=== PATIENT | male | born 1970 | race Caucasian/White ===

== ENCOUNTER 2019-07-03 19:39 | Inpatient (IN) ==
[2019-07-03] MEDS ORDERED: SODIUM CHLORIDE 0.9% 1000ML 1,000 ML IV ONE ×3 (20:05→21:33)
[2019-07-03] MEDS ORDERED: ONDANSETRON INJ 2 MG/ML 2 ML VIAL IV STA (20:05)
[2019-07-03] MEDS ORDERED: HYDROmorphone INJ 1 MG/ML SYRINGE IV PRN (20:05)
[2019-07-03 20:29] LABS: Basophils # (auto) 0.02 K/uL (0-0.2); Basophils % (auto) 0.4 %; Eosinophils # (auto) 0.02 K/uL (0-0.5); Eosinophils % (auto) 0.4 %; Hematocrit (blood only) 38.1 % (42-52); Hemoglobin 13.6 g/dL (14.0-18.0); Immature Granulocytes # (auto) 0.02 K/uL (0.00-0.02); Immature Granulocytes % (auto) 0.4 %; Lymphocytes % (auto) 16.3 %; Mean Corpuscular Hemoglobin 29.7 pg (25-34); Mean Corpuscular Hgb Conc 35.7 g/dL (32-36); Mean Corpuscular Volume 83.2 fL (80-100); Mean Platelet Volume 9.4 fL (7.4-10.4); Monocytes # (auto) 0.61 K/uL (0.11-0.59); Monocytes % (auto) 11.1 %; Neutrophils # (auto) 3.94 K/uL (1.4-6.5); Neutrophils % (auto) 71.4 %; Platelet Count 195 K/uL (130-400); RDW Coefficient of Variation 12.8 % (11.5-14.5); RDW Standard Deviation 38.5 fL (36.4-46.3); Red Blood Count 4.58 M/uL (4.7-6.1); White Blood Count 5.51 K/uL (4.8-10.8)
[2019-07-03 21:03] LABS: Alanine Aminotransferase 140 U/L (12-78); Albumin Globulin Ratio 1.2 (0.9-2); Albumin Level 3.7 gm/dl (3.4-5.0); Alkaline Phosphatase 69 U/L (45-117); Aspartate Aminotransferase 49 U/L (15-37); BUN Creatinine Ratio 13.3 (10-20); Bilirubin,Total 1.3 mg/dl (0.2-1); Blood Urea Nitrogen 18 mg/dl (7-18); Calcium 13.2 mg/dl (8.5-10.1); Carbon Dioxide 26 mmol/L (21-32); Chloride 104 mmol/L (98-107); Creatine Kinase 45 U/L (39-308); Creatine Kinase MB < 1.0 ng/ml (0.5-3.6); Creatinine Clr Calc Pharmacy 65.2 ml/min; Est GFR (African American) 70.6; Est GFR (Non-African American) 60.9; Globulin 3.1 gm/dl (2.5-4.0); Glucose 108 mg/dl (70-99); Lipase 69 U/L (73-393); Potassium 3.7 mmol/L (3.5-5.1); Sodium 139 mmol/L (136-145); Total Protein 6.8 gm/dl (6.4-8.2); Troponin I < 0.015 ng/ml (0-0.045)
[2019-07-03 21:15] LABS: Lyme Ab IgG w/WB Rflx Negative (Negative); Lyme Ab IgM w/WB Rflx Negative (Negative)
[2019-07-03] MEDS ORDERED: OPTIRAY 320 125ml IV PRN (21:25)
--- NOTE | 2019-07-03 21:35 | CT Scan Report ---
CT angio chest PE protocol CT DOSE: HISTORY: Chest pain Chest Pain, eval for PE TECHNIQUE: Multiaxial CT images of the chest were performed following the intravenous administration of contrast to evaluate the pulmonary arteries. Maximal intensity projection images were also obtaine d. A dose lowering technique was utilized adhering to the principles of ALARA. COMPARISON STUDY: None. FINDINGS: There is a normal caliber thoracic aorta with no evidence for dissection. There is no evide nce for pulmonary embolus. No pleural effusions. No pneumothorax. The liver and spleen are unremarkab le. No mediastinal or hilar lymphadenopathy. The central airways are patent. The lungs are clear. Mil d bibasilar dependent atelectasis. IMPRESSION: No evidence for pulmonary embolus. The lungs are clear. The above report was generated using voice recognition software. It may contain grammatical, syntax or spelling errors. Electronically signed by: Jerson Cadena M.D. 07/03/2019 9:34 PM
--- NOTE | 2019-07-03 21:42 | CT Scan Report ---
CT abd pelvis IV con only CT DOSE: 779.26 mGy.cm HISTORY: Pain Pt c/o epigastric pain TECHNIQUE: Multiaxial CT images of the abdomen and pelvis were performed following the use of intrave nous contrast. A dose lowering technique was utilized adhering to the principles of ALARA. COMPARISON STUDY: None. FINDINGS: The lung bases demonstrate mild dependent atelectasis. The liver, spleen, gallbladder, panc reas, kidneys, and adrenal glands are within normal limits. No bowel wall thickening or obstruction. The pelvic organs are unremarkable. No suspicious lytic or blastic osseous lesions. IMPRESSION: No significant abnormality identified within the abdomen or pelvis. Mild dependent atelectasis of the chest versus minimal bibasilar infiltrates. The above report was generated using voice recognition software. It may contain grammatical, syntax or spelling errors. Electronically signed by: Jerson Cadena M.D. 07/03/2019 9:40 PM
[2019-07-03 22:18] LABS: Appearance Urine Cloudy (Clear); Bacteria Urine Automated Negative (Negative); Bilirubin Urine Negative (Negative); Blood Urine Negative (Negative); Color Urine Yellow; Glucose Urine UA Negative (Negative); Ketones Urine Negative (Negative); Leukocyte Esterase Urine Negative (Negative); Nitrite Urine Negative (Negative); Protein Urine Trace (Negative); RBC Urine Automated 0-4 /hpf (0-4); Specific Gravity Urine 1.027 (1.000-1.030); Urobilinogen Urine Negative (Negative)
[2019-07-03 22:28] LABS: Magnesium 1.8 mg/dl (1.8-2.4); Thyroid Stimulating Hormone 0.397 uIu/ml (0.300-4.500)
--- NOTE | 2019-07-03 22:47 | History & Physical Report ---
Date of Service July 03, 2019 Assessment & Plan (1) Hypercalcemia: Symptomatic hypercalcemia manifesting as musculoskeletal complaints of 2 months duration. Etiology to be determined ? Secondary to left renal lesion on CT done at [facility] 07/02/19 Diarrhea rule out C. difficile Medical telemetry NSS Calcitonin subcu if serum calcium greater than 12 after initial fluid boluses given at the ER Hypercalcemia work-up Nephrology consult RE hypercalcemia Urology consult RE recommendations for additional work-up/dedicated imaging for incidental finding of left renal lesion found on recent CT done at [facility]. Stool C. difficile DVT prophylaxis. Lovenox subcu Full code History of Present Illness Chief Complaint: Chest pain/abdominal pain Primary Care Provider: KARLA Khan History obtained from patient, family, and records. No significant medical history. 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 X-ray showed a symmetric disc narrowing at T11-T12 level. Fair amount calcification throughout the costochondral cartilages especially on sternum. [place] [facility]. Symptoms attributed to costochondritis for which analgesics were recommended. Rheumatology consult recommended for possible seronegative arthritis. Persistent pain later accompanied by pleuritic chest pain and achy abdominal pain with constipation symptoms over the next 2 months resulting in multiple [facility] ER visits. Serum calcium levels noted to be elevated on multiple occasions this month. (10.2-12.8) Patient denies inordinate milk/antacid intake. Patient seen at [facility] ER yesterday for headache, jaw pain, chest pain and flank pain. No hematuria. Serum potassium noted to be 12.8. CT chest no pulmonary embolism CT abdomen pelvis read: T11 compression fracture. Question small exophytic le amando upper medial aspect of left upper pole kidney. Further evaluation to exclude tiny malignancy recommended. Nonobstructing right intrarenal calcification. Patient told to follow-up with PCP. Patient brought to the ER by family for worsening symptoms. Nonbloody diarrhea symptoms noted today. Medical History as above Surgical History : Finger amputation, tonsillectomy Family History : Mu's granulomatosis Personal/Social history : Non-smoker, no EtOH intake, coreas Allergies Allergy/AdvReac Type Severity Reaction Status Date / Time Penicillins Allergy Severe Swelling Verified 11/24/19 20:33 of Lip/Tongue/Throat Home Medications Home Medications Medication Instructions Recorded Confirmed Type acetaminophen [Tylenol Extra 500 mg PO Q4 PRN 07/03/19 07/03/19 History Strength] diclofenac sodium [Voltaren] 4 g TOPICAL QID 07/03/19 07/03/19 History ibuprofen [Advil] 400 mg PO Q4 PRN 07/03/19 07/03/19 History meclizine 25 mg PO TID PRN 07/03/19 07/03/19 History ondansetron 4 mg PO Q8H PRN 07/03/19 07/03/19 History oxycodone-acetaminophen [Percocet] 1 tab PO Q6 PRN 07/03/19 07/03/19 History Past Med/Surg History Medical History (Updated 07/04/19 @ 10:16 by KARLA Kirby) No known health problems Social History Preferred Language: [place] Communication Ability: Effective Licensed Psychologist Director Required: No Beliefs That Will Affect Care: None Current Living Situation: Spouse Feels Safe at Home: Yes Safety Concerns: Feels Safe At This Time Smoking Status: Never smoker Hx Alcohol Use: No Hx Substance Use: No Review of Systems Review of Systems: As per HPI, all 10 systems reviewed, all other ROS negative Physical Exam Physical Exam: GENERAL: uncomfortable, no respiratory distress SKIN: Normal color, warm HEENT: [place] palpebral conjunctivae, no ptosis, dry buccal mucosa NECK : Supple, no tenderness CHEST : CTA, anterior chest wall tenderness HEART : RRR, no obvious murmurs ABDOMEN: Some distention, central abdominal tenderness EXTREMITIES : No LE swelling/tenderness, amputation stump left thumb NEUROLOGIC : Coherent, no facial asymmetry, no other gross focality Results & Data Vital Signs (Past 12 Hours) Vital Signs Temp Pulse Pulse Resp BP BP Pulse Ox 07/03/19 21:43 89 139/82 96 07/03/19 19:42 36.3 C L 106 H 20 136/69 98 Laboratory Results Laboratory Results WBC 5.51 K/uL (4.8-10.8) 07/03/19 20:16 RBC 4.58 M/uL (4.7-6.1) L 07/03/19 20:16 Hgb 13.6 g/dL (14.0-18.0) L 07/03/19 20:16 Hct 38.1 % (42-52) L 07/03/19 20:16 MCV 83.2 fL (80-100) 07/03/19 20:16 MCH 29.7 pg (25-34) 07/03/19 20:16 MCHC 35.7 g/dL (32-36) 07/03/19 20:16 RDW Std Deviation 38.5 fL (36.4-46.3) 07/03/19 20:16 RDW Coeff of Silvestre 12.8 % (11.5-14.5) 07/03/19 20:16 Plt Count 195 K/uL (130-400) 07/03/19 20:16 MPV 9.4 fL (7.4-10.4) 07/03/19 20:16 Immature Gran % (Auto) 0.4 % 07/03/19 20:16 Neut % (Auto) 71.4 % 07/03/19 20:16 Lymph % (Auto) 16.3 % 07/03/19 20:16 [place] % (Auto) 11.1 % 07/03/19 20:16 Eos % (Auto) 0.4 % 07/03/19 20:16 Baso % (Auto) 0.4 % 07/03/19 20:16 Immature Gran # (Auto) 0.02 K/uL (0.00-0.02) 07/03/19 20:16 Neut # (Auto) 3.94 K/uL (1.4-6.5) 07/03/19 20:16 Lymph # (Auto) 0.90 K/uL (1.2-3.4) L 07/03/19 20:16 [place] # (Auto) 0.61 K/uL (0.11-0.59) H 07/03/19 20:16 Eos # (Auto) 0.02 K/uL (0-0.5) 07/03/19 20:16 Baso # (Auto) 0.02 K/uL (0-0.2) 07/03/19 20:16 Sodium 139 mmol/L (136-145) 07/03/19 20:16 Potassium 3.7 mmol/L (3.5-5.1) 07/03/19 20:16 Chloride 104 mmol/L (98-107) 07/03/19 20:16 Carbon Dioxide 26 mmol/L (21-32) 07/03/19 20:16 Anion Gap 9.0 (3-11) 07/03/19 20:16 BUN 18 mg/dl (7-18) 07/03/19 20:16 Creatinine 1.34 mg/dl (0.6-1.4) 07/03/19 20:16 Est Cr Clr Drug Dosing 65.2 ml/min 07/03/19 20:16 Est GFR ( Amer) 70.6 07/03/19 20:16 Est GFR (Non-Af Amer) 60.9 07/03/19 20:16 BUN/Creatinine Ratio 13.3 (10-20) 07/03/19 20:16 Glucose 108 mg/dl (70-99) H 07/03/19 20:16 Calcium 13.2 mg/dl (8.5-10.1) H* 07/03/19 20:16 Phosphorus 4.0 mg/dl (2.5-4.9) 07/03/19 20:16 Magnesium 1.8 mg/dl (1.8-2.4) 07/03/19 20:16 Total Bilirubin 1.3 mg/dl (0.2-1) H 07/03/19 20:16 AST 49 U/L (15-37) H 07/03/19 20:16 ALT 140 U/L (12-78) H 07/03/19 20:16 Alkaline Phosphatase 69 U/L (45-117) 07/03/19 20:16 Total Creatine Kinase 45 U/L (39-308) 07/03/19 20:16 CK-MB (CK-2) < 1.0 ng/ml (0.5-3.6) 07/03/19 20:16 CK/CKMB % Calc TNP 07/03/19 20:16 Troponin I < 0.015 ng/ml (0-0.045) 07/03/19 20:16 Total Protein 6.8 gm/dl (6.4-8.2) 07/03/19 20:16 Albumin 3.7 gm/dl (3.4-5.0) 07/03/19 20:16 Globulin 3.1 gm/dl (2.5-4.0) 07/03/19 20:16 Albumin/Globulin Ratio 1.2 (0.9-2) 07/03/19 20:16 Lipase 69 U/L (73-393) L 07/03/19 20:16 TSH 0.397 uIu/ml (0.300-4.500) 07/03/19 20:16 PTH Intact 7.1 pg/ml (18.4-80.1) L 07/03/19 21:47 Urine Color Yellow 07/03/19 22:03 Urine Appearance Cloudy (Clear) A 07/03/19 22:03 Urine pH 6.0 (4.5-7.5) 07/03/19 22:03 Ur Specific [place] 1.027 (1.000-1.030) 07/03/19 22:03 Urine Protein Trace (Negative) H 07/03/19 22:03 Urine Glucose (UA) Negative (Negative) 07/03/19 22:03 Urine Ketones Negative (Negative) 07/03/19 22:03 Urine Blood Negative (Negative) 07/03/19 22:03 Urine Nitrite Negative (Negative) 07/03/19 22:03 Urine Bilirubin Negative (Negative) 07/03/19 22:03 Urine Urobilinogen Negative (Negative) 07/03/19 22:03 Ur Leukocyte Esterase Negative (Negative) 07/03/19 22:03 Urine WBC (Auto) 1-5 /hpf (0-5) 07/03/19 22:03 Urine RBC (Auto) 0-4 /hpf (0-4) 07/03/19 22:03 U Hyaline Cast (Auto) 1-5 /lpf (0-5) 07/03/19 22:03 U Epithel Cells (Auto) 10-20 /lpf (0-5) H 07/03/19 22:03 Urine Bacteria (Auto) Negative (Negative) 07/03/19 22:03 Lyme Disease IgG Ab Negative (Negative) 07/03/19 20:16 Lyme Disease IgM Ab Negative (Negative) 07/03/19 20:[address] head initial read: No acute intracranial pathology CT chest: No evidence for pulmonary embolus. The lungs are clear. CT abdomen pelvis: No significant abnormality identified within the abdomen or pelvis. Mild dependent atelectasis of the chest versus minimal bibasilar infiltrates. EKG as per my interpretation: Rate 85, NSR, normal axis, T wave flattening inferior leads
[2019-07-03] MEDS ORDERED: KETOROLAC TROMETHAMINE 15 MG/ML VIAL IV ONE (22:48)
[2019-07-04] MEDS ORDERED: OXYCODONE/ACETAMINOPHEN 5mg/325mg TAB PO PRN (00:17)
[2019-07-04] MEDS ORDERED: PROMETHAZINE HCL 12.5 MG in SODIUM CHLORIDE 0.9% 50 ML IV PRN (00:17)
[2019-07-04] MEDS ORDERED: ACETAMINOPHEN 325 MG TAB PO PRN (00:17)
[2019-07-04] MEDS ORDERED: LORazepam 0.25 MG/0.5 ML VIAL IV PRN (00:17)
--- NOTE | 2019-07-04 00:28 | Emergency Department Note ---
Entered by Latha Myers acting as a scribe for Antonio Madera MD History of Present Illness General Chief complaint: Flank Pain Stated complaint: CHEST, KIDNEY PAIN, NAUSEA, DRY HEAVES Time Seen by Provider: 07/03/19 19:55 Source: patient, family, RN notes reviewed and old records reviewed Mode of arrival: ambulatory Limitations: no limitations History of Present Illness Provider complaint: diffuse body pain Onset (ago): month(s) 1 Location: chest Radiation: abdomen Severity: severe and similar to prior episodes Pain Consistency: + colicky Maximum Pain Intensity: 6 Current Pain Intensity: 6 Quality: + burning Relieved By: + medication (morphine) Exacerbated By: + movement Associated symptoms: + denies other symptoms Treatments prior to arrival: none This is a 49-year-old male who presents emergency department complaining of severe and diffuse body pains. The patient reports he is a patient of [facility] and reports that he is having severe body pains have been ongoing for a month. He is supposed to follow-up with rheumatology because they are concerned that his calcium level is very high. He describes the body pains as abdominal in the flank radiating to the back. 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 He arrives with outside CAT scans. His parents are also present. He denies any fevers. Home Medications Home Medications Medication Instructions Recorded Confirmed Type acetaminophen [Tylenol Extra 500 mg PO Q4 PRN 07/03/19 07/03/19 History Strength] diclofenac sodium [Voltaren] 4 g TOPICAL QID 07/03/19 07/03/19 History ibuprofen [Advil] 400 mg PO Q4 PRN 07/03/19 07/03/19 History meclizine 25 mg PO TID PRN 07/03/19 07/03/19 History ondansetron 4 mg PO Q8H PRN 07/03/19 07/03/19 History oxycodone-acetaminophen [Percocet] 1 tab PO Q6 PRN 07/03/19 07/03/19 History Allergies Allergy/AdvReac Type Severity Reaction Status Date / Time Penicillins Allergy Severe Swelling Verified 07/03/19 20:33 of Lip/Tongue/Throat Past Med/Surg History Medical History No known health problems Social History Preferred Language: Arabic Communication Ability: Effective Underwear Cutter Required: No Beliefs That Will Affect Care: None Current Living Situation: Spouse Feels Safe at Home: Yes Safety Concerns: Feels Safe At This Time Smoking Status: Never smoker Hx Alcohol Use: No Hx Substance Use: No Review of Systems See HPI for pertinent positives & negatives. and A total of 10 systems reviewed and were otherwise negative Physical Exam Vital Signs Vital Signs - 24 hr 07/03/19 19:42 07/03/19 21:43 Temperature 36.3 C L Temperature Source Oral Pulse Rate 106 H Pulse Rate [Bilateral] 89 Pulse Rhythm [Bilateral] Regular Pulse Strength [Bilateral] Normal Respiratory Rate 20 Respiratory Effort / Characteristics Non-Labored Respiratory Depth Normal Blood Pressure 136/69 Blood Pressure [Left Arm] 139/82 Blood Pressure Mean 91 Blood Pressure Mean [Left Arm] 101 Blood Pressure Position [Left Arm] Lying Pulse Oximetry 98 96 Oxygen Delivery Method Room Air Room Air Sepsis Recent Fever Within 48 Hours No Sepsis New/Unexplained Change in Mental Status No Sepsis Action Taken by Nursing No Action Required GENERAL: Awake, alert, well-appearing, in no acute distress HENT: Normocephalic, atraumatic. Oropharynx unremarkable. EYES: Normal conjunctiva. Sclera non-icteric. NECK: Supple. No nuchal rigidity. FROM. No JVD. RESPIRATORY: Clear to auscultation. CARDIAC: Regular rate, normal rhythm. Extremities warm and well perfused. Pulses equal. ABDOMEN: Soft, non-distended. No tenderness to palpation. No rebound or guarding. No masses. RECTAL: Deferred. MUSCULOSKELETAL: Chest examination reveals no tenderness. The back is symmetrical on inspection without obvious abnormality. There is no CVA tenderness to palpation. No joint edema. LOWER EXTREMITIES: Calves are equal size bilaterally and non-tender. No edema. No discoloration. NEURO: Normal sensorium. No sensory or motor deficits noted. SKIN: No rash or jaundice noted. Course Course 1953: The patient was evaluated in room B02. A complete history and physical exam was performed. Administered Medications Calcitonin [place] (Calcimar) 320 units SQ BID ROBERTO Stop: 08/03/19 00:59 Last Admin: 07/04/19 21:01 Dose: 320 units Documented by: [id number] Admin: 07/04/19 07:57 Dose: 320 units Documented by: [id number] Admin: 07/04/19 01:03 Dose: 320 units Documented by: [id number] Enoxaparin Sodium (Lovenox) 30 mg SQ QAM ROBERTO Stop: 08/03/19 08:59 Last Admin: 07/04/19 07:56 Dose: 30 mg Documented by: [id number] Potassium Chloride/Sodium Chloride (Normal Saline W/20 Meq Kcl) 20 meq in 1,000 mls @ 200 mls/hr IV .Q5H ROBERTO Stop: 08/03/19 00:44 Last Admin: 07/04/19 21:31 Dose: 200 mls/hr Documented by: [id number] Infusion: 07/04/19 21:31 Dose: 200 mls/hr Documented by: [id number] Admin: 07/04/19 16:50 Dose: 200 mls/hr Documented by: [id number] Infusion: 07/04/19 16:50 Dose: 0 mls/hr Documented by: [id number] Infusion: 07/04/19 12:40 Dose: 200 mls/hr Documented by: [id number] Infusion: 07/04/19 12:02 Dose: 0 mls/hr Documented by: [id number] Admin: 07/04/19 11:07 Dose: 200 mls/hr Documented by: [id number] Infusion: 07/04/19 11:07 Dose: 200 mls/hr Documented by: [id number] Admin: 07/04/19 06:13 Dose: 200 mls/hr Documented by: [id number] Infusion: 07/04/19 06:03 Dose: 200 mls/hr Documented by: [id number] Admin: 07/04/19 01:03 Dose: 200 mls/hr Documented by: [id number] Promethazine HCl 12.5 mg/ (Sodium Chloride) 50.5 mls @ 202 mls/hr IV Q6H PRN PRN Reason: Nausea And Vomiting Stop: 08/03/19 00:16 Last Infusion: 07/04/19 01:50 Dose: 0 mls/hr Documented by: [id number] Admin: 07/04/19 01:32 Dose: 202 mls/hr Documented by: [id number] Lidocaine (Lidoderm 5%) 1 patch TD HS ROBERTO Stop: 08/03/19 01:14 Last Admin: 07/04/19 21:01 Dose: 1 patch Documented by: [id number] Admin: 07/04/19 01:32 Dose: 1 patch Documented by: [id number] Miscellaneous (Remove Lidoderm Patch) 1 ea N/A QAM ROBERTO Stop: 08/03/19 10:59 Last Admin: 07/04/19 11:08 Dose: 1 ea Documented by: [id number] Morphine Sulfate (Morphine Sulfate) 4 mg IV Q4H PRN PRN Reason: Pain Stop: 07/18/19 00:16 Last Admin: 07/04/19 21:30 Dose: 4 mg Documented by: [id number] Admin: 07/04/19 15:14 Dose: 4 mg Documented by: [id number] Admin: 07/04/19 08:16 Dose: 4 mg Documented by: [id number] Admin: 07/04/19 02:43 Dose: 4 mg Documented by: [id number] Ondansetron HCl (Zofran) 4 mg IV Q6H PRN PRN Reason: Nausea Stop: 08/03/19 08:03 Last Admin: 07/04/19 21:30 Dose: 4 mg Documented by: [id number] Admin: 07/04/19 15:14 Dose: 4 mg Documented by: [id number] Admin: 07/04/19 08:16 Dose: 4 mg Documented by: [id number] Discontinued Medications Hydromorphone HCl (Dilaudid) 1 mg IV Q15M PRN PRN Reason: Pain Stop: 07/17/19 20:04 Last Admin: 07/03/19 20:34 Dose: 1 mg Documented by: [id number] Sodium Chloride (Nss 1000ml) 1,000 mls @ 999 mls/hr IV .Q1H1M ONE Stop: 07/03/19 21:05 Last Infusion: 07/03/19 21:28 Dose: 0 mls/hr Documented by: [id number] Admin: 07/03/19 20:34 Dose: 999 mls/hr Documented by: [id number] Sodium Chloride (Nss 1000ml) 1,000 mls @ 999 mls/hr IV .Q1H1M ONE Stop: 07/03/19 22:04 Last Infusion: 07/03/19 22:44 Dose: 0 mls/hr Documented by: [id number] Admin: 07/03/19 21:41 Dose: 999 mls/hr Documented by: [id number] Sodium Chloride (Nss 1000ml) 1,000 mls @ 999 mls/hr IV .Q1H1M ONE Stop: 07/03/19 22:33 Last Infusion: 07/03/19 22:44 Dose: 0 mls/hr Documented by: [id number] Admin: 07/03/19 21:42 Dose: 999 mls/hr Documented by: [id number] Zoledronic Acid 4 mg/ Sodium (Chloride) 105 mls @ 210 mls/hr IV 1200 ONE Stop: 07/04/19 12:29 Last Infusion: 07/04/19 12:40 Dose: 0 mls/hr Documented by: [id number] Admin: 07/04/19 12:02 Dose: 210 mls/hr Documented by: [id number] Ioversol (Optiray 320 125ml) 118 ml IV ONCE PRN PRN Reason: Interaction Checking Stop: 07/07/19 21:24 Last Admin: 07/03/19 21:26 Dose: 118 ml Documented by: [id number] Ketorolac Tromethamine (Toradol) 15 mg IV NOW ONE Stop: 07/03/19 22:49 Last Admin: 07/03/19 23:30 Dose: 15 mg Documented by: [id number] Ondansetron HCl (Zofran) 4 mg IV NOW STA Stop: 07/03/19 20:06 Last Admin: 07/03/19 20:34 Dose: 4 mg Documented by: [id number] Medical Decision Making Differential Diagnosis My differential diagnosis includes but is not limited to pulmonary embolus, VT, hypercalcemia, hyper magnesium, parathyroid issues Medical Records Attestation: I reviewed the patient's medical records. Home Medications Current Medication List: was personally reviewed by me Laboratory Data Result diagrams: 07/04/19 06:47 07/04/19 06:47 Lab Results 07/03/19 07/03/19 07/03/19 Range/Units 20:16 20:16 20:16 WBC 5.51 (4.8-10.8) K/uL RBC 4.58 L (4.7-6.1) M/uL Hgb 13.6 L (14.0-18.0) g/dL Hct 38.1 L (42-52) % MCV 83.2 (80-100) fL MCH 29.7 (25-34) pg MCHC 35.7 (32-36) g/dL RDW Std Deviation 38.5 (36.4-46.3) fL RDW Coeff of Silvestre 12.8 (11.5-14.5) % Plt Count 195 (130-400) K/uL MPV 9.4 (7.4-10.4) fL Immature Gran % (Auto) 0.4 % Neut % (Auto) 71.4 % Lymph % (Auto) 16.3 % [place] % (Auto) 11.1 % Eos % (Auto) 0.4 % Baso % (Auto) 0.4 % Immature Gran # (Auto) 0.02 (0.00-0.02) K/uL Neut # (Auto) 3.94 (1.4-6.5) K/uL Lymph # (Auto) 0.90 L (1.2-3.4) K/uL [place] # (Auto) 0.61 H (0.11-0.59) K/uL Eos # (Auto) 0.02 (0-0.5) K/uL Baso # (Auto) 0.02 (0-0.2) K/uL Sodium 139 (136-145) mmol/L Potassium 3.7 (3.5-5.1) mmol/L Chloride 104 (98-107) mmol/L Carbon Dioxide 26 (21-32) mmol/L Anion Gap 9.0 (3-11) BUN 18 (7-18) mg/dl Creatinine 1.34 (0.6-1.4) mg/dl Est Cr Clr Drug Dosing 65.2 ml/min Est GFR ( Amer) 70.6 Est GFR (Non-Af Amer) 60.9 BUN/Creatinine Ratio 13.3 (10-20) Glucose 108 H (70-99) mg/dl Calcium 13.2 H* (8.5-10.1) mg/dl Phosphorus 4.0 (2.5-4.9) mg/dl Magnesium 1.8 (1.8-2.4) mg/dl Total Bilirubin 1.3 H (0.2-1) mg/dl AST 49 H (15-37) U/L ALT 140 H (12-78) U/L Alkaline Phosphatase 69 (45-117) U/L Total Creatine Kinase 45 (39-308) U/L CK-MB (CK-2) < 1.0 (0.5-3.6) ng/ml CK/CKMB % Calc TNP Troponin I < 0.015 (0-0.045) ng/ml Total Protein 6.8 (6.4-8.2) gm/dl Albumin 3.7 (3.4-5.0) gm/dl Globulin 3.1 (2.5-4.0) gm/dl Albumin/Globulin Ratio 1.2 (0.9-2) Lipase 69 L (73-393) U/L TSH 0.397 (0.300-4.500) uIu/ml PTH Intact (18.4-80.1) pg/ml Urine Color Urine Appearance (Clear) Urine pH (4.5-7.5) Ur Specific [place] (1.000-1.030) Urine Protein (Negative) Urine Glucose (UA) (Negative) Urine Ketones (Negative) Urine Blood (Negative) Urine Nitrite (Negative) Urine Bilirubin (Negative) Urine Urobilinogen (Negative) Ur Leukocyte Esterase (Negative) Urine WBC (Auto) (0-5) /hpf Urine RBC (Auto) (0-4) /hpf U Hyaline Cast (Auto) (0-5) /lpf U Epithel Cells (Auto) (0-5) /lpf Urine Bacteria (Auto) (Negative) Lyme Disease IgG Ab Negative (Negative) Lyme Disease IgM Ab Negative (Negative) 07/03/19 07/03/19 Range/Units 21:47 22:03 WBC (4.8-10.8) K/uL RBC (4.7-6.1) M/uL Hgb (14.0-18.0) g/dL Hct (42-52) % MCV (80-100) fL MCH (25-34) pg MCHC (32-36) g/dL RDW Std Deviation (36.4-46.3) fL RDW Coeff of Silvestre (11.5-14.5) % Plt Count (130-400) K/uL MPV (7.4-10.4) fL Immature Gran % (Auto) % Neut % (Auto) % Lymph % (Auto) % [place] % (Auto) % Eos % (Auto) % Baso % (Auto) % Immature Gran # (Auto) (0.00-0.02) K/uL Neut # (Auto) (1.4-6.5) K/uL Lymph # (Auto) (1.2-3.4) K/uL [place] # (Auto) (0.11-0.59) K/uL Eos # (Auto) (0-0.5) K/uL Baso # (Auto) (0-0.2) K/uL Sodium (136-145) mmol/L Potassium (3.5-5.1) mmol/L Chloride (98-107) mmol/L Carbon Dioxide (21-32) mmol/L Anion Gap (3-11) BUN (7-18) mg/dl Creatinine (0.6-1.4) mg/dl Est Cr Clr Drug Dosing ml/min Est GFR ( Amer) Est GFR (Non-Af Amer) BUN/Creatinine Ratio (10-20) Glucose (70-99) mg/dl Calcium (8.5-10.1) mg/dl Phosphorus (2.5-4.9) mg/dl Magnesium (1.8-2.4) mg/dl Total Bilirubin (0.2-1) mg/dl AST (15-37) U/L ALT (12-78) U/L Alkaline Phosphatase (45-117) U/L Total Creatine Kinase (39-308) U/L CK-MB (CK-2) (0.5-3.6) ng/ml CK/CKMB % Calc Troponin I (0-0.045) ng/ml Total Protein (6.4-8.2) gm/dl Albumin (3.4-5.0) gm/dl Globulin (2.5-4.0) gm/dl Albumin/Globulin Ratio (0.9-2) Lipase (73-393) U/L TSH (0.300-4.500) uIu/ml PTH Intact 7.1 L (18.4-80.1) pg/ml Urine Color Yellow Urine Appearance Cloudy A (Clear) Urine pH 6.0 (4.5-7.5) Ur Specific [place] 1.027 (1.000-1.030) Urine Protein Trace H (Negative) Urine Glucose (UA) Negative (Negative) Urine Ketones Negative (Negative) Urine Blood Negative (Negative) Urine Nitrite Negative (Negative) Urine Bilirubin Negative (Negative) Urine Urobilinogen Negative (Negative) Ur Leukocyte Esterase Negative (Negative) Urine WBC (Auto) 1-5 (0-5) /hpf Urine RBC (Auto) 0-4 (0-4) /hpf U Hyaline Cast (Auto) 1-5 (0-5) /lpf U Epithel Cells (Auto) 10-20 H (0-5) /lpf Urine Bacteria (Auto) Negative (Negative) Lyme Disease IgG Ab (Negative) Lyme Disease IgM Ab (Negative) Imaging Data Radiologist's Impression: [facility], [place] [phone] CT Scan Report Patient: SILVIA CAMILO JRAdmit Date: 07/03/19 MR#: [id number]: [address] Acct ID:[id number]: Date: 1970[facility] Zip: [place] [address] Age: 49Location: ED Sex: M Room/Bed: Att Phy:Diagnosis: CHEST, KIDNEY PAIN, NAUSEA, DRY HEAVES Michelle Phy: PCP,NOService Date: 07/03/19 Fam Phy:Interpreting Phy: Jerson Cadena MD Admit Phy: Ordering Phy: Antonio Madera MD cc: ~ CT abd pelvis IV con only CT DOSE: 779.26 mGy.cm HISTORY: Pain Pt c/o epigastric pain TECHNIQUE: Multiaxial CT images of the abdomen and pelvis were performed follo wing the use of intravenous contrast. A dose lowering technique was utilized adhering to the principles of ALARA. COMPARISON STUDY: None. FINDINGS: The lung bases demonstrate mild dependent atelectasis. The liver, spleen, gallbladder, pancreas, kidneys, and adrenal glands are within normal limits. No bowel wall thickening or obstruction. The pelvic organs are unremarkable. No suspicious lytic or blastic osseous lesions. IMPRESSION: No significant abnormality identified within the abdomen or pelvis. Mild dependent atelectasis of the chest versus minimal bibasilar infiltrates. The above report was generated using voice recognition software. It may contain grammatical, syntax or spelling errors. Electronically signed by: Jerson Cadena M.D. 07/03/2019 9:40 PM Dictated: 07/03/192134 Transcribed: 07/03/192134 [facility], [place] [phone] CT Scan Report Patient: SILVIA CAMILO JRAdmit Date: 07/03/19 MR#: [id number]: [address] Acct ID:[id number]: Date: 1970[facility] Zip: [place] [address] Age: 49Location: ED Sex: M Room/Bed: Att Phy:Diagnosis: CHEST, KIDNEY PAIN, NAUSEA, DRY HEAVES Michelle Phy: PCP,NOService Date: 07/03/19 Fam Phy:Interpreting Phy: Jerson Cadena MD Admit Phy: Ordering Phy: Antonio Madera MD cc: ~ CT angio chest PE protocol CT DOSE: HISTORY: Chest pain Chest Pain, eval for PE TECHNIQUE: Multiaxial CT images of the chest were performed following the intravenous administration of contrast to evaluate the pulmonary arteries. Maximal intensity projection images were also obtained. A dose lowering technique was utilized adhering to the principles of ALARA. COMPARISON STUDY: None. FINDINGS: There is a normal caliber thoracic aorta with no evidence for dissection. There is no evidence for pulmonary embolus. No pleural effusions. No pneumothorax. The liver and spleen are unremarkable. No mediastinal or hilar lymphadenopathy. The central airways are patent. The lungs are clear. Mild bibasilar dependent atelectasis. IMPRESSION: No evidence for pulmonary embolus. The lungs are clear. [facility], [place] [phone] CT Scan Report Patient: SILVIA CAMILO JRAdmit Date: 07/03/19 MR#: [id number]: [address] Acct ID:[id number]: Date: 1970[facility] Zip: [place] [address] Age: 49Location: 2N Sex: M Room/Bed: N288-1 Att Phy: Dao Vargas, MDDiagnosis: CP, HYPERCALCEMIA Michelle Phy: PCP,NOService Date: 07/03/19 Fam Phy:Interpreting Phy: Ronaldo Delgado MD Admit Phy: Manny Mcpherson MD Ordering Phy: Manny Mcpherson MD cc: ~ CT head/brain wo con CLINICAL HISTORY: 49 years-old Male presenting with headache, left-sided head and posterior head pain. TECHNIQUE: Multidetector CT imaging of the head was performed without the use of intravenous contrast. IV contrast: None. One or more dose lowering techniques were used consistent with the principles of ALARA (as low as reasonably achievable), including automatic exposure control, mA or kV adjustment to individual patient size, and/or use of iterative reconstruction. COMPARISON: None. CT DOSE (mGy.cm): The estimated cumulative dose is 614.27 mGy.cm. 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 Ventricles and sulci normal in size. No hemorrhage. Brain parenchyma normal in appearance with preserved delaney-white differentiation. No acute territorial infarct. No mass effect or midline shift. No extra-axial fluid collection. Paranasal sinuses and mastoid air cells clear. Calvarium intact. IMPRESSION: 1. No acute intracranial abnormality. Electronically signed by: Ronaldo Delgado M.D. 07/04/2019 6:36 AM Dictated: 07/04/19633 Transcribed: 07/04/19633 MDM Narrative This is a 49-year-old male who presents emergency department complaining of severe back pain. The patient's calcium level was found to be grossly elevated therefore he was given 3 L of fluid. Because of the high calcium level the case was discussed with the hospitalist service who agreed to admit the patient. Patient was in agreement with the treatment plan. Impression & Plan Hypercalcemia, Low back pain Discharge Plan Visit Data *Final* Discharge Date/Time: 07/03/19 23:40 Chief Complaint: Flank Pain Stated Complaint: CHEST, KIDNEY PAIN, NAUSEA, DRY HEAVES ED Provider: Antonio Madera Discharge Problem: Hypercalcemia, Low back pain Patient Disposition: Admitted As Inpatient Discharge Instructions Interventions: ED Discharge Assessment Last Done: 07/03/19 23:40 Discharge Problem: Low back pain Qualifiers: Chronicity: acute Back pain laterality: midline Sciatica presence: unspecified whether sciatica present Qualified Code(s): M54.5 - Low back pain The scribe's documentation has been prepared under my direction and personally reviewed by me in its entirety. I confirm that the note above accurately reflects all work, treatment, procedures, and medical decision making performed by me.
[2019-07-04] MEDS ORDERED: MECLIZINE HCL 25 MG TAB PO PRN (00:35)
[2019-07-04] MEDS: CALCITONIN SALMON 400 UNITS/2 ML SQ SCH ×3 (01:03→21:01)
[2019-07-04] MEDS: NSS + 20MEQ KCL 20 MEQ/1,000 ML BAG IV SCH ×5 (01:03→21:31)
[2019-07-04] MEDS: LIDOCAINE 5% 1 PATCH TD SCH ×2 (01:32→21:01)
[2019-07-04] MEDS: MoRPHine SULFATE 4 MG/ML 1 ML CARP\\VIAL IV PRN ×4 (02:43→21:30)
--- NOTE | 2019-07-04 06:37 | CT Scan Report ---
CT head/brain wo con CLINICAL HISTORY: 49 years-old Male presenting with headache, left-sided head and posterior head pain . TECHNIQUE: Multidetector CT imaging of the head was performed without the use of intravenous contrast . IV contrast: None. One or more dose lowering techniques were used consistent with the principles of ALARA (as low as reasonably achievable), including automatic exposure control, mA or kV adjustment t o individual patient size, and/or use of iterative reconstruction. COMPARISON: None. CT DOSE (mGy.cm): The estimated cumulative dose is 614.27 mGy.cm. 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 Ventricles and sulci normal in size. No hemorrhage. Brain parenchyma normal in appearance with preser ella delaney-white differentiation. No acute territorial infarct. No mass effect or midline shift. No ext ra-axial fluid collection. Paranasal sinuses and mastoid air cells clear. Calvarium intact. IMPRESSION: 1. No acute intracranial abnormality. Electronically signed by: Ronaldo Delgado M.D. 07/04/2019 6:36 AM
[2019-07-04 07:05] LABS: Basophils # (auto) 0.01 K/uL (0-0.2); Basophils % (auto) 0.2 %; Eosinophils # (auto) 0.01 K/uL (0-0.5); Eosinophils % (auto) 0.2 %; Hematocrit (blood only) 34.1 % (42-52); Immature Granulocytes # (auto) 0.02 K/uL (0.00-0.02); Immature Granulocytes % (auto) 0.4 %; Lymphocytes # (auto) 0.79 K/uL (1.2-3.4); Lymphocytes % (auto) 15.2 %; Mean Corpuscular Hemoglobin 29.6 pg (25-34); Mean Corpuscular Hgb Conc 35.2 g/dL (32-36); Mean Platelet Volume 9.3 fL (7.4-10.4); Monocytes # (auto) 0.79 K/uL (0.11-0.59); Monocytes % (auto) 15.2 %; Neutrophils # (auto) 3.57 K/uL (1.4-6.5); Neutrophils % (auto) 68.8 %; Platelet Count 167 K/uL (130-400); RDW Coefficient of Variation 12.9 % (11.5-14.5); RDW Standard Deviation 39.3 fL (36.4-46.3); Red Blood Count 4.06 M/uL (4.7-6.1); White Blood Count 5.19 K/uL (4.8-10.8)
[2019-07-04 07:42] LABS: BUN Creatinine Ratio 13.5 (10-20); Creatinine Clr Calc Pharmacy 74.7 ml/min; Est GFR (African American) 83.2; Est GFR (Non-African American) 71.8; Potassium 4.1 mmol/L (3.5-5.1)
[2019-07-04] MEDS: ENOXAPARIN INJ 30 MG/0.3 ML SYR SQ SCH (07:56)
[2019-07-04] MEDS: ONDANSETRON INJ 2 MG/ML 2 ML VIAL IV PRN ×3 (08:16→21:30)
--- NOTE | 2019-07-04 09:30 | Hospitalist Progress Note ---
Date of Service July 04, 2019 Assessment & Plan (1) Hypercalcemia: Symptomatic hypercalcemia manifesting as musculoskeletal complaints of 2 months duration. Serum calcium levels noted to be elevated on multiple occasions this month. (10.2-12.8) Etiology to be determined Concern for multiple myeloma vs. ? Secondary to left renal lesion on CT done at [facility] 07/02/19 Patient received IV fluids, and then also calcitonin as his calcium persistently elevated Urology was consulted for further work-up of incidental finding of left renal lesion found on recent CT done at [facility]. However on current CT from this admission, there is no lesion present, urology will therefore plan to repeat CT imaging and will simply observe, follow-up CT in 6 months. Hypercalcemia, non-PTH related, his PTH is appropriately suppressed Nephrology consulted , believe etiology is likely secondary to malignancy or granulomatous disease. MM is a concern given his bone pain although patient does not have significant anemia. Calcium improved with IV fluids and calcitonin Patient received Zometa 4 mg once yesterday Patient counseled on limited calcium and vitamin D intake PTH related peptide and 1, 25 vitamin D - pending Urine protein, SPEP, serum free light chains - ordered Age-appropriate cancer screenings, obtain records of colonoscopy (2) Low back pain: Patient seen at [facility] ER for headache, jaw pain, chest pain and flank pain. There is tenderness to palpation and mild swelling of gum and to his left mandible. I could not appreciate any clear pus or any drainage on my physical exam. Will obtain a facial CT to further evaluate. Back pain, possibly secondary to exophytic incidental finding however not noted on current CT, urology was consulted and plan to observe and repeat CT in 6 months. Pain control. (3) Abnormal finding on CT scan: Repeat CT obtained on admission, does not show the incidental finding that was noted at [facility]. Urology was consulted and they plan to do another follow-up CT in 6 months and observe. Subjective Patient admitted overnight, due to hypercalcemia and poorly controlled pain. Patient is currently lying in the bed, uncomfortable, complains of spasms in his lower back, sternum and right shoulder. He also complains of nausea. He denies any fevers, chills, chest pain, shortness of breath, abdominal pain, weakness. He says he has slight numbness at his left chin and gum ache at L mandib. Patient's at bedside. Review of Systems Review of Systems: All systems reviewed & are unremarkable except as noted in HPI & below Constitutional: + body aches; no fever and no chills Respiratory: no cough, no dyspnea and no pain on inspiration Cardiovascular: no chest pain, no dyspnea on exertion, no palpitations and no edema Gastrointestinal: + nausea; no abdominal pain and no vomiting Physical Exam Physical Exam: Male, laying flat in bed, appears uncomfortable Constitutional: well developed and well nourished; no acute distress (but uncomfortable) Eyes: PERRL, conjunctivae normal, anicteric sclerae ENMT: external ear and nose normal, oropharynx normal There is tenderness to palpation and seemingly mild swelling of gum at the left mandible Respiratory: normal respiratory effort, lungs clear to auscultation Auscultation: no crackles, no rhonchi and no wheezes Cardiovascular: RRR, no murmur, no edema Chest (Breasts): Chest: normal inspection of chest Gastrointestinal (Abdomen): Inspection/Auscultation: abdomen normal to inspection and normal bowel sounds; abdomen not distended Percu ssion/Palpation: abdomen soft; abdomen nontender, no guarding and abdomen not rigid Musculoskeletal: Head/Neck/Chest: normocephalic, head atraumatic and neck supple Moves all 4 extremities spontaneously, no lower extremity edema ,tenderness over sternal bone to palpation Skin: no rashes, warm and dry Neurologic: moves all extremities Speech / Cognition: normal speech Alert and oriented, speech fluent, moves all 4 extremities spontaneously Psychiatric: Orientation: alert and oriented x 3 Speech: normal rate/rhyt hm/volume of speech Poor eye contact Lymphatic: no cervical or axillary lymphadenopathy Results & Data Vital Signs (Past 12 Hours) Vital Signs Temp Pulse Pulse Pulse Resp BP BP 07/04/19 07:38 91 H 07/04/19 07:12 37.0 C 93 H 20 128/75 07/04/19 00:40 36.8 C 83 16 101/66 07/03/19 23:40 94 H 18 139/74 07/03/19 21:43 89 139/82 Pulse Ox 07/04/19 07:38 07/04/19 07:12 94 11/25/19 00:40 96 07/03/19 23:40 96 07/03/19 21:43 96 Laboratory Results 07/04/19 07/04/19 07/04/19 Range/Units 08:22 06:47 06:47 WBC (4.8-10.8) K/uL RBC (4.7-6.1) M/uL Hgb (14.0-18.0) g/dL Hct (42-52) % MCV (80-100) fL MCH (25-34) pg MCHC (32-36) g/dL RDW Std Deviation (36.4-46.3) fL RDW Coeff of Silvestre (11.5-14.5) % Plt Count (130-400) K/uL MPV (7.4-10.4) fL Immature Gran % (Auto) % Neut % (Auto) % Lymph % (Auto) % [place] % (Auto) % Eos % (Auto) % Baso % (Auto) % Immature Gran # (Auto) (0.00-0.02) K/uL Neut # (Auto) (1.4-6.5) K/uL Lymph # (Auto) (1.2-3.4) K/uL [place] # (Auto) (0.11-0.59) K/uL Eos # (Auto) (0-0.5) K/uL Baso # (Auto) (0-0.2) K/uL Sodium 141 (136-145) mmol/L Potassium 4.1 (3.5-5.1) mmol/L Chloride 110 H (98-107) mmol/L Carbon Dioxide 24 (21-32) mmol/L Anion Gap 7.0 (3-11) BUN 16 (7-18) mg/dl Creatinine 1.17 (0.6-1.4) mg/dl Est Cr Clr Drug Dosing 74.7 ml/min Est GFR ( Amer) 83.2 Est GFR (Non-Af Amer) 71.8 BUN/Creatinine Ratio 13.5 (10-20) Glucose 109 H (70-99) mg/dl Calcium 11.0 H (8.5-10.1) mg/dl Phosphorus (2.5-4.9) mg/dl Magnesium (1.8-2.4) mg/dl Total Bilirubin (0.2-1) mg/dl AST (15-37) U/L ALT (12-78) U/L Alkaline Phosphatase (45-117) U/L Total Creatine Kinase (39-308) U/L CK-MB (CK-2) (0.5-3.6) ng/ml CK/CKMB % Calc Troponin I (0-0.045) ng/ml Total Protein (6.4-8.2) gm/dl Albumin (3.4-5.0) gm/dl Globulin (2.5-4.0) gm/dl Albumin/Globulin Ratio (0.9-2) Lipase (73-393) U/L 25-OH Vitamin D Total 35.5 (30-100) ng/ml TSH (0.300-4.500) uIu/ml PTH Intact (18.4-80.1) pg/ml PTH Related Protein Pending Urine Color Urine Appearance (Clear) Urine pH (4.5-7.5) Ur Specific [place] (1.000-1.030) Urine Protein (Negative) Urine Glucose (UA) (Negative) Urine Ketones (Negative) Urine Blood (Negative) Urine Nitrite (Negative) Urine Bilirubin (Negative) Urine Urobilinogen (Negative) Ur Leukocyte Esterase (Negative) Urine WBC (Auto) (0-5) /hpf Urine RBC (Auto) (0-4) /hpf U Hyaline Cast (Auto) (0-5) /lpf U Epithel Cells (Auto) (0-5) /lpf Urine Bacteria (Auto) (Negative) A. phagocytophilum DNA Lyme Disease IgG Ab (Negative) Lyme Disease IgM Ab (Negative) E. chaffeensis IgG Ab E. chaffeensis IgM Ab E. chaffeensis Interp E. chaffeensis Comment 07/04/19 07/03/19 07/03/19 Range/Units 06:47 23:38 22:03 WBC 5.19 (4.8-10.8) K/uL RBC 4.06 L (4.7-6.1) M/uL Hgb 12.0 L (14.0-18.0) g/dL Hct 34.1 L (42-52) % MCV 84.0 (80-100) fL MCH 29.6 (25-34) pg MCHC 35.2 (32-36) g/dL RDW Std Deviation 39.3 (36.4-46.3) fL RDW Coeff of Silvestre 12.9 (11.5-14.5) % Plt Count 167 (130-400) K/uL MPV 9.3 (7.4-10.4) fL Immature Gran % (Auto) 0.4 % Neut % (Auto) 68.8 % Lymph % (Auto) 15.2 % [place] % (Auto) 15.2 % Eos % (Auto) 0.2 % Baso % (Auto) 0.2 % Immature Gran # (Auto) 0.02 (0.00-0.02) K/uL Neut # (Auto) 3.57 (1.4-6.5) K/uL Lymph # (Auto) 0.79 L (1.2-3.4) K/uL [place] # (Auto) 0.79 H (0.11-0.59) K/uL Eos # (Auto) 0.01 (0-0.5) K/uL Baso # (Auto) 0.01 (0-0.2) K/uL Sodium (136-145) mmol/L Potassium (3.5-5.1) mmol/L Chloride (98-107) mmol/L Carbon Dioxide (21-32) mmol/L Anion Gap (3-11) BUN (7-18) mg/dl Creatinine (0.6-1.4) mg/dl Est Cr Clr Drug Dosing ml/min Est GFR ( Amer) Est GFR (Non-Af Amer) BUN/Creatinine Ratio (10-20) Glucose (70-99) mg/dl Calcium 12.1 H* (8.5-10.1) mg/dl Phosphorus (2.5-4.9) mg/dl Magnesium (1.8-2.4) mg/dl Total Bilirubin (0.2-1) mg/dl AST (15-37) U/L ALT (12-78) U/L Alkaline Phosphatase (45-117) U/L Total Creatine Kinase (39-308) U/L CK-MB (CK-2) (0.5-3.6) ng/ml CK/CKMB % Calc Troponin I (0-0.045) ng/ml Total Protein (6.4-8.2) gm/dl Albumin (3.4-5.0) gm/dl Globulin (2.5-4.0) gm/dl Albumin/Globulin Ratio (0.9-2) Lipase (73-393) U/L 25-OH Vitamin D Total (30-100) ng/ml TSH (0.300-4.500) uIu/ml PTH Intact (18.4-80.1) pg/ml PTH Related Protein Urine Color Yellow Urine Appearance Cloudy A (Clear) Urine pH 6.0 (4.5-7.5) Ur Specific [place] 1.027 (1.000-1.030) Urine Protein Trace H (Negative) Urine Glucose (UA) Negative (Negative) Urine Ketones Negative (Negative) Urine Blood Negative (Negative) Urine Nitrite Negative (Negative) Urine Bilirubin Negative (Negative) Urine Urobilinogen Negative (Negative) Ur Leukocyte Esterase Negative (Negative) Urine WBC (Auto) 1-5 (0-5) /hpf Urine RBC (Auto) 0-4 (0-4) /hpf U Hyaline Cast (Auto) 1-5 (0-5) /lpf U Epithel Cells (Auto) 10-20 H (0-5) /lpf Urine Bacteria (Auto) Negative (Negative) A. phagocytophilum DNA Lyme Disease IgG Ab (Negative) Lyme Disease IgM Ab (Negative) E. chaffeensis IgG Ab E. chaffeensis IgM Ab E. chaffeensis Interp E. chaffeensis Comment 07/03/19 07/03/19 07/03/19 Range/Units 21:47 21:47 20:16 WBC (4.8-10.8) K/uL RBC (4.7-6.1) M/uL Hgb (14.0-18.0) g/dL Hct (42-52) % MCV (80-100) fL MCH (25-34) pg MCHC (32-36) g/dL RDW Std Deviation (36.4-46.3) fL RDW Coeff of Silvestre (11.5-14.5) % Plt Count (130-400) K/uL MPV (7.4-10.4) fL Immature Gran % (Auto) % Neut % (Auto) % Lymph % (Auto) % [place] % (Auto) % Eos % (Auto) % Baso % (Auto) % Immature Gran # (Auto) (0.00-0.02) K/uL Neut # (Auto) (1.4-6.5) K/uL Lymph # (Auto) (1.2-3.4) K/uL [place] # (Auto) (0.11-0.59) K/uL Eos # (Auto) (0-0.5) K/uL Baso # (Auto) (0-0.2) K/uL Sodium (136-145) mmol/L Potassium (3.5-5.1) mmol/L Chloride (98-107) mmol/L Carbon Dioxide (21-32) mmol/L Anion Gap (3-11) BUN (7-18) mg/dl Creatinine (0.6-1.4) mg/dl Est Cr Clr Drug Dosing ml/min Est GFR ( Amer) Est GFR (Non-Af Amer) BUN/Creatinine Ratio (10-20) Glucose (70-99) mg/dl Calcium (8.5-10.1) mg/dl Phosphorus (2.5-4.9) mg/dl Magnesium (1.8-2.4) mg/dl Total Bilirubin (0.2-1) mg/dl AST (15-37) U/L ALT (12-78) U/L Alkaline Phosphatase (45-117) U/L Total Creatine Kinase (39-308) U/L CK-MB (CK-2) (0.5-3.6) ng/ml CK/CKMB % Calc Troponin I (0-0.045) ng/ml Total Protein (6.4-8.2) gm/dl Albumin (3.4-5.0) gm/dl Globulin (2.5-4.0) gm/dl Albumin/Globulin Ratio (0.9-2) Lipase (73-393) U/L 25-OH Vitamin D Total (30-100) ng/ml TSH (0.300-4.500) uIu/ml PTH Intact 7.1 L (18.4-80.1) pg/ml PTH Related Protein Pending Urine Color Urine Appearance (Clear) Urine pH (4.5-7.5) Ur Specific [place] (1.000-1.030) Urine Protein (Negative) Urine Glucose (UA) (Negative) Urine Ketones (Negative) Urine Blood (Negative) Urine Nitrite (Negative) Urine Bilirubin (Negative) Urine Urobilinogen (Negative) Ur Leukocyte Esterase (Negative) Urine WBC (Auto) (0-5) /hpf Urine RBC (Auto) (0-4) /hpf U Hyaline Cast (Auto) (0-5) /lpf U Epithel Cells (Auto) (0-5) /lpf Urine Bacteria (Auto) (Negative) A. phagocytophilum DNA Pending Lyme Disease IgG Ab (Negative) Lyme Disease IgM Ab (Negative) E. chaffeensis IgG Ab Pending E. chaffeensis IgM Ab Pending E. chaffeensis Interp Pending E. chaffeensis Comment Pending 07/03/19 07/03/19 07/03/19 Range/Units 20:16 20:16 20:16 WBC 5.51 (4.8-10.8) K/uL RBC 4.58 L (4.7-6.1) M/uL Hgb 13.6 L (14.0-18.0) g/dL Hct 38.1 L (42-52) % MCV 83.2 (80-100) fL MCH 29.7 (25-34) pg MCHC 35.7 (32-36) g/dL RDW Std Deviation 38.5 (36.4-46.3) fL RDW Coeff of Silvestre 12.8 (11.5-14.5) % Plt Count 195 (130-400) K/uL MPV 9.4 (7.4-10.4) fL Immature Gran % (Auto) 0.4 % Neut % (Auto) 71.4 % Lymph % (Auto) 16.3 % [place] % (Auto) 11.1 % Eos % (Auto) 0.4 % Baso % (Auto) 0.4 % Immature Gran # (Auto) 0.02 (0.00-0.02) K/uL Neut # (Auto) 3.94 (1.4-6.5) K/uL Lymph # (Auto) 0.90 L (1.2-3.4) K/uL [place] # (Auto) 0.61 H (0.11-0.59) K/uL Eos # (Auto) 0.02 (0-0.5) K/uL Baso # (Auto) 0.02 (0-0.2) K/uL Sodium 139 (136-145) mmol/L Potassium 3.7 (3.5-5.1) mmol/L Chloride 104 (98-107) mmol/L Carbon Dioxide 26 (21-32) mmol/L Anion Gap 9.0 (3-11) BUN 18 (7-18) mg/dl Creatinine 1.34 (0.6-1.4) mg/dl Est Cr Clr Drug Dosing 65.2 ml/min Est GFR ( Amer) 70.6 Est GFR (Non-Af Amer) 60.9 BUN/Creatinine Ratio 13.3 (10-20) Glucose 108 H (70-99) mg/dl Calcium 13.2 H* (8.5-10.1) mg/dl Phosphorus 4.0 (2.5-4.9) mg/dl Magnesium 1.8 (1.8-2.4) mg/dl Total Bilirubin 1.3 H (0.2-1) mg/dl AST 49 H (15-37) U/L ALT 140 H (12-78) U/L Alkaline Phosphatase 69 (45-117) U/L Total Creatine Kinase 45 (39-308) U/L CK-MB (CK-2) < 1.0 (0.5-3.6) ng/ml CK/CKMB % Calc TNP Troponin I < 0.015 (0-0.045) ng/ml Total Protein 6.8 (6.4-8.2) gm/dl Albumin 3.7 (3.4-5.0) gm/dl Globulin 3.1 (2.5-4.0) gm/dl Albumin/Globulin Ratio 1.2 (0.9-2) Lipase 69 L (73-393) U/L 25-OH Vitamin D Total (30-100) ng/ml TSH 0.397 (0.300-4.500) uIu/ml PTH Intact (18.4-80.1) pg/ml PTH Related Protein Urine Color Urine Appearance (Clear) Urine pH (4.5-7.5) Ur Specific [place] (1.000-1.030) Urine Protein (Negative) Urine Glucose (UA) (Negative) Urine Ketones (Negative) Urine Blood (Negative) Urine Nitrite (Negative) Urine Bilirubin (Negative) Urine Urobilinogen (Negative) Ur Leukocyte Esterase (Negative) Urine WBC (Auto) (0-5) /hpf Urine RBC (Auto) (0-4) /hpf U Hyaline Cast (Auto) (0-5) /lpf U Epithel Cells (Auto) (0-5) /lpf Urine Bacteria (Auto) (Negative) A. phagocytophilum DNA Lyme Disease IgG Ab Negative (Negative) Lyme Disease IgM Ab Negative (Negative) E. chaffeensis IgG Ab E. chaffeensis IgM Ab E. chaffeensis Interp E. chaffeensis Comment Diagnostic Findings CT Abdomen/pelvis (07/03/2019) FINDINGS: The lung bases demonstrate mild dependent atelectasis. The liver, spleen, gallbladder, pancreas, kidneys, and adrenal glands are within normal limits. No bowel wall thickening or obstruction. The pelvic organs are unremarkable. No suspicious lytic or blastic osseous lesions. IMPRESSION: No significant abnormality identified within the abdomen or pelvis. Mild dependent atelectasis of the chest versus minimal bibasilar infiltrates. CT face (07/04/2019) FINDINGS: Superficial soft tissues of the face are symmetric and noninfiltrated. No focal inflammatory change. Limited intracranial evaluation within normal limits. Orbits normal. Minimal polypoid mucosal thickening in the right maxillary sinus. No osseous erosion or sclerosis. Degenerative changes of the spine. Mastoid air cells and middle ears clear. Amalgam noted in several teeth. This only mildly limits evaluation. No significant dental caries are apparent. No periapical or periodontal lucency. Allowing for the lack of intravenous contrast, no evidence of infiltrative changes along the maxillary or mandibular alveolar processes. No convincing evidence of a fluid collection. No lymphadenopathy. IMPRESSION: Allowing for the lack of intravenous contrast, no evidence of inflammatory change associated with the oral cavity. No convincing evidence of abscess. No endodontic or periodontal disease. Amalgam only mildly limits evaluation. Medications Administered Current Inpatient Medications Acetaminophen (Tylenol) 650 mg PO Q4H PRN PRN Reason: Pain or Fever Stop: 08/03/19 00:16 Calcitonin [place] ([place]) 320 units SQ BID ROBERTO Stop: 08/03/19 00:59 Last Admin: 07/04/19 07:57 Dose: 320 units Documented by: Enoxaparin Sodium (Lovenox) 30 mg SQ QAM ROBERTO Stop: 08/03/19 08:59 Last Admin: 07/04/19 07:56 Dose: 30 mg Documented by: Potassium Chloride/Sodium Chloride (Normal Saline W/20 Meq Kcl) 20 meq in 1,000 mls @ 200 mls/hr IV .Q5H ROBERTO Stop: 08/03/19 00:44 Last Admin: 07/04/19 06:13 Dose: 200 mls/hr Documented by: Promethazine HCl 12.5 mg/ (Sodium Chloride) 50.5 mls @ 202 mls/hr IV Q6H PRN PRN Reason: Nausea And Vomiting Stop: 08/03/19 00:16 Last Infusion: 07/04/19 01:50 Dose: Infused Documented by: Lorazepam (Ativan) 0.25 mg in 0.5 mls @ 0.5 mls/min IV Q4H PRN PRN Reason: Anxiety Stop: 08/03/19 00:16 Lidocaine (Lidoderm 5%) 1 patch TD HS [facility] Stop: 08/03/19 01:14 Last Admin: 07/04/19 01:32 Dose: 1 patch Documented by: Meclizine HCl (Antivert) 25 mg PO TID PRN PRN Reason: DIZZINESS Stop: 08/03/19 00:34 Miscellaneous (Remove Lidoderm Patch) 1 ea N/A QAM [facility] Stop: 08/03/19 10:59 Morphine Sulfate (Morphine Sulfate) 4 mg IV Q4H PRN PRN Reason: Pain Stop: 07/18/19 00:16 Last Admin: 07/04/19 08:16 Dose: 4 mg Documented by: Ondansetron HCl (Zofran) 4 mg IV Q6H PRN PRN Reason: Nausea Stop: 08/03/19 08:03 Last Admin: 07/04/19 08:16 Dose: 4 mg Documented by: Oxycodone/Acetaminophen (Percocet 5mg/325mg) 1 tab PO Q4H PRN PRN Reason: Pain Stop: 07/18/19 00:16
--- NOTE | 2019-07-04 10:01 | Urology Consultation ---
Date of Consultation July 04, 2019 Assessment & Plan (1) Low back pain: (2) Abnormal finding on CT scan: 49yo M admitted with pain, found to have T11 compression fracture. Questionable CT findings consistent with tiny exophytic lesion to upper medial aspect of left kidney. Repeat CT imaging from [facility] does not reveal concerning findings from standpoint. No solid components appreciated, no obstructive uropathy. Case discussed with Dr. Moreno. We feel his pain is not related at this time. We will simply observe for now and followup with CT imaging in 6 months. Careplan reviewed with patient, he is agreeable. All questions answered. Thank you for allowing us to participate in the acute care of Mr. Mata. Please reconsult us with additional questions, concerns or changes in patient status. Please see additional comments per my attending physician as indicated. History of Present Illness Reason for Consultation: abn CT findings Requesting Physician: Dr. Vargas Attending Physician: aDo Vargas MD History of Present Illness 49yo M admitted through [facility] ED after multiple ER visits to [facility] for headache, jaw pain, chest pain and flank pain. We were consulted to assist in care regarding abnormal CT imaging with IV co ntrast from [facility] on 07/02. CT imaging remarks on a possible tiny exophytic lesion, may be solid emanating from upper medial aspect of left kidney, less than 1cm in size but not well visualized. Pt had repeat CT completed at [facility] which does not demonstrate any abnormalities of left kidney. Small right renal calculi noted, simple cysto. No ureteral stones, no hydronephrosis or obstructive uropathy. Images not available to view. Pt states he had some burning in his back with urination, which has since resolved. No dysuria. He is now voiding spontaneously, clear yellow. UA cloudy, with contamination. UC&S not obtained. Cr within normal limits. Afebrile. Allergies Allergy/AdvReac Type Severity Reaction Status Date / Time Penicillins Allergy Severe Swelling Verified 07/03/19 20:33 of Lip/Tongue/Throat Home Medications Home Medications Medication Instructions Recorded Confirmed Type acetaminophen [Tylenol Extra 500 mg PO Q4 PRN 07/03/19 07/03/19 History Strength] diclofenac sodium [Voltaren] 4 g TOPICAL QID 07/03/19 07/03/19 History ibuprofen [Advil] 400 mg PO Q4 PRN 07/03/19 07/03/19 History meclizine 25 mg PO TID PRN 07/03/19 07/03/19 History ondansetron 4 mg PO Q8H PRN 07/03/19 07/03/19 History oxycodone-acetaminophen [Percocet] 1 tab PO Q6 PRN 07/03/19 07/03/19 History Patient History Medical History (Updated 07/04/19 @ 10:16 by KARLA Kirby) No known health problems Social History Preferred Language: Khmer Communication Ability: Effective Therapist Speech Required: No Beliefs That Will Affect Care: None Current Living Situation: Spouse Feels Safe at Home: Yes Safety Concerns: Feels Safe At This Time Smoking Status: Never smoker Hx Alcohol Use: No Hx Substance Use: No Review of Systems Review of Systems: All systems reviewed & are unremarkable except as noted in HPI & below back pain, midline radiationg to right side and abdomen at times. Physical Exam Constitutional: lying flat, appears uncomfortable. Eyes: no nystagmus ENMT: Ears: no hearing impairment Neck: trachea midline Respiratory: no respiratory distress and no cough Cardiovascular: Vessels: no JVD Chest (Breasts): Chest: normal inspection of chest Gastrointestinal (Abdomen): Inspection/Auscultation: abdomen not distended and no abdominal edema Percussion/Palpation: abdomen soft; abdomen nontender Musculoskeletal: Head/Neck/Chest: normocephalic and head atraumatic Skin: no rashes, warm and dry Neurologic: awake; not confused and not obtunded Psychiatric: Orientation: alert and oriented x 3 Eye Contact: + poor eye contact Affect: + flat affect Genitourinary: no CVA tenderness Lymphatic: no lymphadenopathy and no lymphedema Results & Data Vital Signs (Past 12 Hours) Vital Signs Temp Pulse Pulse Pulse Resp BP BP 07/04/19 07:38 91 H 07/04/19 07:12 37.0 C 93 H 20 128/75 07/04/19 00:40 36.8 C 83 16 101/66 07/03/19 23:40 94 H 18 139/74 Pulse Ox 07/04/19 07:38 07/04/19 07:12 94 07/04/19 00:40 96 07/03/19 23:40 96 PG Care Time/CCT Total # of Minutes Spent Total Time Spent with Patient: Total time spent is greater than 50% in coordination of care (as documented) at patient's floor/unit and/or counseling patient:
--- NOTE | 2019-07-04 10:28 | Nephrology Consultation ---
Date of Consultation July 04, 2019 Assessment & Plan (1) Hypercalcemia: Patient with non-PTH related hypercalcemia. His PTH is appropriately suppressed. Etiology of his hypercalcemia likely secondary to malignancy or granulomatous disease. Multiple myeloma is a possibility given bone pain although does not have significant anemia. His calcium was improved with IV fluids and calcitonin. Recommend 4 mg of Zometa once as his calcium will likely rebound shortly. We discussed need to limit calcium and vitamin D intake. We will obtain PTH related peptide and 1, 25 vitamin D levels. -Recommend age-appropriate cancer screening. Would obtain records of his colonoscopy. -We will obtain urine protein, SPEP, serum free light chains (2) Abnormal finding on CT scan: Patient found to have an exophytic lesion on the left kidney on the CT scan done July 02, 2019. Repeat CT scan yesterday did not reveal the exophytic lesion. He will likely need follow-up imaging as an outpatient. Urology consulted History of Present Illness Reason for Consultation: Hypercalcemia Requesting Physician: Dao Vargas MD Attending Physician: Dao Vargas MD History of Present Illness This is 49-year-old male with no past medical history who was admitted on 07/03/2019 with severe retrosternal pain and low back pain for several days found to have hypercalcemia of 12.8. Patient had normal calcium 2 weeks ago at 9.5. This increased to 10.2 on 06/16/2019, then up to 12.4 on 06/29/2019. Patient reports a rib fracture at T11 in April 2019. This was due to picking up something heavy. Imaging done showed calcification of the cartilages around the ribs. Rheumatology referral was suggested but that is pending. He also complains of stiffness in the right hand. He drinks milk daily but none over the past 1 week he had a colonoscopy 2 years ago and sees a PCP annually. In the emergency room he received calcitonin and IV fluids. Calcium is better at 11 this morning. No vomiting or diarrhea. He had constipation recently. He still has severe pain around his sternum which is worse on coughing. Allergies Allergy/AdvReac Type Severity Reaction Status Date / Time Penicillins Allergy Severe Swelling Verified 07/03/19 20:33 of Lip/Tongue/Throat Home Medications Home Medications Medication Instructions Recorded Confirmed Type acetaminophen [Tylenol Extra 500 mg PO Q4 PRN 07/03/19 07/03/19 History Strength] diclofenac sodium [Voltaren] 4 g TOPICAL QID 07/03/19 07/03/19 History ibuprofen [Advil] 400 mg PO Q4 PRN 07/03/19 07/03/19 History meclizine 25 mg PO TID PRN 07/03/19 07/03/19 History ondansetron 4 mg PO Q8H PRN 07/03/19 07/03/19 History oxycodone-acetaminophen [Percocet] 1 tab PO Q6 PRN 07/03/19 07/03/19 History Patient History Medical History (Updated 07/04/19 @ 10:16 by KARLA Kirby) No known health problems Social History Preferred Language: Surinamese Communication Ability: Effective [employer] Specialists Required: No Beliefs That Will Affect Care: None Current Living Situation: Spouse Feels Safe at Home: Yes Safety Concerns: Feels Safe At This Time Smoking Status: Never smoker Hx Alcohol Use: No Hx Substance Use: No Review of Systems 2 Review of Systems: All systems reviewed & are unremarkable except as noted in HPI & below Physical Exam Physical Exam: General exam: Appears comfortable, no acute distress HEENT: Pupils are equal and reactive to light Neck: No JVD, neck is supple trachea is midline Respiratory system: Clear breath sounds bilaterally. Gastrointestinal: Abdomen is soft, non distended, non tender, bowel sounds are present CVS: Regular rate and rhythm. No murmurs, rubs or gallops Musculoskeletal: Tenderness over the sternal bone Extremities: Non tender, no edema, peripheral pulses are present Neuro: Oriented, no tremors, no focal neurological deficits Skin: No rashes Results & Data Vital Signs (Past 12 Hours) Vital Signs Temp Pulse Pulse Pulse Resp BP BP 07/04/19 07:38 91 H 07/04/19 07:12 37.0 C 93 H 20 128/75 07/04/19 00:40 36.8 C 83 16 101/66 07/03/19 23:40 94 H 18 139/74 Pulse Ox 07/04/19 07:38 07/04/19 07:12 94 07/04/19 00:40 96 07/03/19 23:40 96 Laboratory Results Laboratory Results - last 24 hr 07/03/19 07/03/19 07/03/19 20:16 20:16 20:16 WBC 5.51 RBC 4.58 L Hgb 13.6 L Hct 38.1 L MCV 83.2 MCH 29.7 MCHC 35.7 RDW Std Deviation 38.5 RDW Coeff of Silvestre 12.8 Plt Count 195 MPV 9.4 Immature Gran % (Auto) 0.4 Neut % (Auto) 71.4 Lymph % (Auto) 16.3 [place] % (Auto) 11.1 Eos % (Auto) 0.4 Baso % (Auto) 0.4 Immature Gran # (Auto) 0.02 Neut # (Auto) 3.94 Lymph # (Auto) 0.90 L [place] # (Auto) 0.61 H Eos # (Auto) 0.02 Baso # (Auto) 0.02 Sodium 139 Potassium 3.7 Chloride 104 Carbon Dioxide 26 Anion Gap 9.0 BUN 18 Creatinine 1.34 Est Cr Clr Drug Dosing 65.2 Est GFR ( Amer) 70.6 Est GFR (Non-Af Amer) 60.9 BUN/Creatinine Ratio 13.3 Glucose 108 H Calcium 13.2 H* Phosphorus 4.0 Magnesium 1.8 Total Bilirubin 1.3 H AST 49 H ALT 140 H Alkaline Phosphatase 69 Total Creatine Kinase 45 CK-MB (CK-2) < 1.0 CK/CKMB % Calc TNP Troponin I < 0.015 Total Protein 6.8 Albumin 3.7 Globulin 3.1 Albumin/Globulin Ratio 1.2 Lipase 69 L 25-OH Vitamin D Total TSH 0.397 PTH Intact PTH Related Protein Urine Color Urine Appearance Urine pH Ur Specific [place] Urine Protein Urine Glucose (UA) Urine Ketones Urine Blood Urine Nitrite Urine Bilirubin Urine Urobilinogen Ur Leukocyte Esterase Urine WBC (Auto) Urine RBC (Auto) U Hyaline Cast (Auto) U Epithel Cells (Auto) Urine Bacteria (Auto) A. phagocytophilum DNA Lyme Disease IgG Ab Negative Lyme Disease IgM Ab Negative E. chaffeensis IgG Ab E. chaffeensis IgM Ab E. chaffeensis Interp E. chaffeensis Comment 07/03/19 07/03/19 07/03/19 20:16 21:47 21:47 WBC RBC Hgb Hct MCV MCH MCHC RDW Std Deviation RDW Coeff of Silvestre Plt Count MPV Immature Gran % (Auto) Neut % (Auto) Lymph % (Auto) [place] % (Auto) Eos % (Auto) Baso % (Auto) Immature Gran # (Auto) Neut # (Auto) Lymph # (Auto) [place] # (Auto) Eos # (Auto) Baso # (Auto) Sodium Potassium Chloride Carbon Dioxide Anion Gap BUN Creatinine Est Cr Clr Drug Dosing Est GFR ( Amer) Est GFR (Non-Af Amer) BUN/Creatinine Ratio Glucose Calcium Phosphorus Magnesium Total Bilirubin AST ALT Alkaline Phosphatase Total Creatine Kinase CK-MB (CK-2) CK/CKMB % Calc Troponin I Total Protein Albumin Globulin Albumin/Globulin Ratio Lipase 25-OH Vitamin D Total TSH PTH Intact 7.1 L PTH Related Protein Pending Urine Color Urine Appearance Urine pH Ur Specific [place] Urine Protein Urine Glucose (UA) Urine Ketones Urine Blood Urine Nitrite Urine Bilirubin Urine Urobilinogen Ur Leukocyte Esterase Urine WBC (Auto) Urine RBC (Auto) U Hyaline Cast (Auto) U Epithel Cells (Auto) Urine Bacteria (Auto) A. phagocytophilum DNA Pending Lyme Disease IgG Ab Lyme Disease IgM Ab E. chaffeensis IgG Ab Pending E. chaffeensis IgM Ab Pending E. chaffeensis Interp Pending E. chaffeensis Comment Pending 07/03/19 07/03/19 07/04/19 22:03 23:38 06:47 WBC 5.19 RBC 4.06 L Hgb 12.0 L Hct 34.1 L MCV 84.0 MCH 29.6 MCHC 35.2 RDW Std Deviation 39.3 RDW Coeff of Silvestre 12.9 Plt Count 167 MPV 9.3 Immature Gran % (Auto) 0.4 Neut % (Auto) 68.8 Lymph % (Auto) 15.2 [place] % (Auto) 15.2 Eos % (Auto) 0.2 Baso % (Auto) 0.2 Immature Gran # (Auto) 0.02 Neut # (Auto) 3.57 Lymph # (Auto) 0.79 L [place] # (Auto) 0.79 H Eos # (Auto) 0.01 Baso # (Auto) 0.01 Sodium Potassium Chloride Carbon Dioxide Anion Gap BUN Creatinine Est Cr Clr Drug Dosing Est GFR ( Amer) Est GFR (Non-Af Amer) BUN/Creatinine Ratio Glucose Calcium 12.1 H* Phosphorus Magnesium Total Bilirubin AST ALT Alkaline Phosphatase Total Creatine Kinase CK-MB (CK-2) CK/CKMB % Calc Troponin I Total Protein Albumin Globulin Albumin/Globulin Ratio Lipase 25-OH Vitamin D Total TSH PTH Intact PTH Related Protein Urine Color Yellow Urine Appearance Cloudy A Urine pH 6.0 Ur Specific [place] 1.027 Urine Protein Trace H Urine Glucose (UA) Negative Urine Ketones Negative Urine Blood Negative Urine Nitrite Negative Urine Bilirubin Negative Urine Urobilinogen Negative Ur Leukocyte Esterase Negative Urine WBC (Auto) 1-5 Urine RBC (Auto) 0-4 U Hyaline Cast (Auto) 1-5 U Epithel Cells (Auto) 10-20 H Urine Bacteria (Auto) Negative A. phagocytophilum DNA Lyme Disease IgG Ab Lyme Disease IgM Ab E. chaffeensis IgG Ab E. chaffeensis IgM Ab E. chaffeensis Interp E. chaffeensis Comment 07/04/19 07/04/19 07/04/19 06:47 06:47 08:22 WBC RBC Hgb Hct MCV MCH MCHC RDW Std Deviation RDW Coeff of Silvestre Plt Count MPV Immature Gran % (Auto) Neut % (Auto) Lymph % (Auto) [place] % (Auto) Eos % (Auto) Baso % (Auto) Immature Gran # (Auto) Neut # (Auto) Lymph # (Auto) [place] # (Auto) Eos # (Auto) Baso # (Auto) Sodium 141 Potassium 4.1 Chloride 110 H Carbon Dioxide 24 Anion Gap 7.0 BUN 16 Creatinine 1.17 Est Cr Clr Drug Dosing 74.7 Est GFR ( Amer) 83.2 Est GFR (Non-Af Amer) 71.8 BUN/Creatinine Ratio 13.5 Glucose 109 H Calcium 11.0 H Phosphorus Magnesium Total Bilirubin AST ALT Alkaline Phosphatase Total Creatine Kinase CK-MB (CK-2) CK/CKMB % Calc Troponin I Total Protein Albumin Globulin Albumin/Globulin Ratio Lipase 25-OH Vitamin D Total 35.5 TSH PTH Intact PTH Related Protein Pending Urine Color Urine Appearance Urine pH Ur Specific [place] Urine Protein Urine Glucose (UA) Urine Ketones Urine Blood Urine Nitrite Urine Bilirubin Urine Urobilinogen Ur Leukocyte Esterase Urine WBC (Auto) Urine RBC (Auto) U Hyaline Cast (Auto) U Epithel Cells (Auto) Urine Bacteria (Auto) A. phagocytophilum DNA Lyme Disease IgG Ab Lyme Disease IgM Ab E. chaffeensis IgG Ab E. chaffeensis IgM Ab E. chaffeensis Interp E. chaffeensis Comment
[2019-07-04] MEDS ORDERED: ZOLEDRONIC ACID 4 MG in 0.9 % SODIUM CHLORIDE 100 ML IV ONE (12:00)
[2019-07-04 13:17] LABS: Creatinine Urine Random 57.8 mg/dl; Protein Creatinine Ratio Urine 1.2 (0-0.2); Total Protein Urine Random 67.6 mg/dl (0-11.9)
--- NOTE | 2019-07-04 15:06 | CT Scan Report ---
CT facial bones wo con CLINICAL HISTORY: 49 years-old Male presenting with left-sided dental pain, concern for odontogenic a bscess. TECHNIQUE: Multidetector CT of the face was performed without the use of intravenous contrast. IV con trast: None. One or more dose lowering techniques were used consistent with the principles of ALARA ( as low as reasonably achievable), including automatic exposure control, mA or kV adjustment to indivi dual patient size, and/or use of iterative reconstruction. COMPARISON: None. CT DOSE (mGy.cm): The estimated cumulative dose is 617.58 mGycm. FINDINGS: Tomato Grader topogram: Unremarkable. Superficial soft tissues of the face are symmetric and noninfiltrated. No focal inflammatory change. Limited intracranial evaluation within normal limits. Orbits normal. Minimal polypoid mucosal thicken ing in the right maxillary sinus. No osseous erosion or sclerosis. Degenerative changes of the spine. Mastoid air cells and middle ears clear. Amalgam noted in several teeth. This only mildly limits evaluation. No significant dental caries are apparent. No periapical or periodontal lucency. Allowing for the lack of intravenous contrast, no oliver dence of infiltrative changes along the maxillary or mandibular alveolar processes. No convincing oliver dence of a fluid collection. No lymphadenopathy. IMPRESSION: Allowing for the lack of intravenous contrast, no evidence of inflammatory change associated with the oral cavity. No convincing evidence of abscess. No endodontic or periodontal disease. Amalgam only m ildly limits evaluation. Electronically signed by: Ronaldo Delgado M.D. 07/04/2019 3:05 PM
[2019-07-05] MEDS: NSS + 20MEQ KCL 20 MEQ/1,000 ML BAG IV SCH ×5 (02:52→22:22)
[2019-07-05] MEDS: MoRPHine SULFATE 4 MG/ML 1 ML CARP\\VIAL IV PRN (06:18)
[2019-07-05] MEDS: ONDANSETRON INJ 2 MG/ML 2 ML VIAL IV PRN (06:18)
[2019-07-05] MEDS: ENOXAPARIN INJ 30 MG/0.3 ML SYR SQ SCH (08:17)
[2019-07-05 08:28] LABS: Basophils # (auto) 0.02 K/uL (0-0.2); Basophils % (auto) 0.4 %; Eosinophils # (auto) 0.02 K/uL (0-0.5); Eosinophils % (auto) 0.4 %; Hematocrit (blood only) 31.2 % (42-52); Hemoglobin 10.8 g/dL (14.0-18.0); Immature Granulocytes # (auto) 0.01 K/uL (0.00-0.02); Immature Granulocytes % (auto) 0.2 %; Lymphocytes # (auto) 0.61 K/uL (1.2-3.4); Lymphocytes % (auto) 10.7 %; Mean Corpuscular Hemoglobin 30.3 pg (25-34); Mean Corpuscular Hgb Conc 34.6 g/dL (32-36); Mean Corpuscular Volume 87.4 fL (80-100); Mean Platelet Volume 9.2 fL (7.4-10.4); Monocytes # (auto) 0.49 K/uL (0.11-0.59); Monocytes % (auto) 8.6 %; Neutrophils # (auto) 4.54 K/uL (1.4-6.5); Neutrophils % (auto) 79.7 %; Platelet Count 160 K/uL (130-400); RDW Coefficient of Variation 13.1 % (11.5-14.5); Red Blood Count 3.57 M/uL (4.7-6.1); White Blood Count 5.69 K/uL (4.8-10.8)
[2019-07-05] MEDS ORDERED: MoRPHine SULFATE 4 MG/ML 1 ML CARP\\VIAL IV PRN (08:49)
[2019-07-05 08:58] LABS: BUN Creatinine Ratio 14.9 (10-20); Calcium 9.7 mg/dl (8.5-10.1); Creatinine Clr Calc Pharmacy 87.4 ml/min; Est GFR (African American) 100.6; Est GFR (Non-African American) 86.8; Potassium 4.5 mmol/L (3.5-5.1)
[2019-07-05] MEDS: ACETAMINOPHEN 325 MG TAB PO SCH ×4 (09:23→20:35)
[2019-07-05] MEDS: CALCITONIN SALMON 400 UNITS/2 ML SQ SCH ×2 (09:34→20:34)
--- NOTE | 2019-07-05 10:49 | Hospitalist Progress Note ---
Date of Service July 05, 2019 Assessment & Plan (1) Hypercalcemia: Symptomatic hypercalcemia manifesting as musculoskeletal complaints of 2 months duration. Serum calcium levels noted to be elevated on multiple occasions this month. (10.2-12.8) Etiology to be determined Concern for multiple myeloma vs. ? Secondary to left renal lesion on CT done at [facility] 07/02/19 Patient received IV fluids, and then also calcitonin as his calcium persistently elevated Urology was consulted for further work-up of incidental finding of left renal lesion found on recent CT done at [facility]. However on current CT from this admission, there is no lesion present, urology will therefore plan to repeat CT imaging and will simply observe, follow-up CT in 6 months. Hypercalcemia, non-PTH related, his PTH is appropriately suppressed Nephrology consulted , believe etiology is likely secondary to malignancy or granulomatous disease. MM is a concern given his bone pain although patient does not have significant anemia. (He has anemia now, but likely dilutional after being given significant amount of IVF - will stop IVF this evening) Calcium improved with IV fluids and calcitonin Patient received Zometa 4 mg once yesterda Patient counseled on limited calcium and vitamin D intake PTH related peptide and 1, 25 vitamin D - pending Urine protein, SPEP, serum free light chains - ordered Age-appropriate cancer screenings, obtain records of colonoscopy (pt said he had multiple colonoscopies done in the past d/t GI bleed) Anemia Hgb >10 - likely dilutional given sign. amount of IVF pt received to control hypercalcemia - will cont. to monitor (2) Low back pain: Patient seen at [facility] ER for headache, jaw pain, chest pain and flank pain. There is tenderness to palpation and mild swelling of gum and at his left mandible. I could not appreciate any clear pus or any drainage on my physical exam. Obtained a facial CT to further evaluate- negative for any abscess. Back pain, possibly secondary to exophytic incidental finding however not noted on current CT, urology was consulted and plan to observe and repeat CT in 6 months. Pain control. (3) Abnormal finding on CT scan: Repeat CT obtained on admission, does not show the incidental finding that was noted at [facility]. Urology was consulted and they plan to do another follow-up CT in 6 months and observe. Subjective No acute events overnight. Pain is better controlled now. Patient continues to be on IV fluids, calcium level down to 9.7. Patient denies any fevers, chills, shortness of breath, abdominal pain is only intermittent due to spasms, back pain is much better controlled, denies any issues this morning. Review of Systems Review of Systems: All systems reviewed & are unremarkable except as noted in HPI & below Constitutional: + body aches; no fever and no chills Respiratory: no cough, no dyspnea and no pain on inspiration Cardiovascular: no chest pain, no radiating jaw, neck or arm pain, no dyspnea on exertion, no palpitations and no edema Gastrointestinal: + abdominal pain (Intermittent due to spasms/cramps); no nausea and no vomiting Physical Exam Constitutional: well developed and well nourished; no acute distress (but uncomfortable) Eyes: PERRL, conjunctivae normal, anicteric sclerae ENMT: external ear and nose normal, oropharynx normal Neck: trachea midline, no thyromegaly Respiratory: normal respiratory effort, lungs clear to auscultation Auscultation: no crackles, no rhonchi and no wheezes Cardiovascular: RRR, no murmur, no edema Chest (Breasts): Chest: normal inspection of chest Gastrointestinal (Abdomen): Inspection/Auscultation: abdomen normal to inspection and normal bowel sounds; abdomen not distended Percussion/Palpation: abdomen soft; abdomen nontender, no guarding and abdomen not rigid Musculoskeletal: Head/Neck/Chest: normocephalic, head atraumatic and neck supple Skin: no rashes, warm and dry Neurologic: moves all extremities Speech / Cognition: normal speech Psychiatric: Orientation: alert and oriented x 3 Speech: normal rate/rhythm/volume of speech Lymphatic: no cervical or axillary lymphadenopathy Results & Data Vital Signs (Past 12 Hours) Vital Signs Temp Pulse Resp BP Pulse Ox 07/05/19 07:28 36.8 C 93 H 16 112/57 L 95 07/05/19 04:04 37.2 C 84 19 95/60 L 96 07/04/19 23:13 37.2 C 86 20 100/61 96 Laboratory Results 07/05/19 07/05/19 07/05/19 Range/Units 08:04 08:04 08:04 WBC 5.69 (4.8-10.8) K/uL RBC 3.57 L (4.7-6.1) M/uL Hgb 10.8 L (14.0-18.0) g/dL Hct 31.2 L (42-52) % MCV 87.4 (80-100) fL MCH 30.3 (25-34) pg MCHC 34.6 (32-36) g/dL RDW Std Deviation 42.0 (36.4-46.3) fL RDW Coeff of Silvestre 13.1 (11.5-14.5) % Plt Count 160 (130-400) K/uL MPV 9.2 (7.4-10.4) fL Immature Gran % (Auto) 0.2 % Neut % (Auto) 79.7 % Lymph % (Auto) 10.7 % [place] % (Auto) 8.6 % Eos % (Auto) 0.4 % Baso % (Auto) 0.4 % Immature Gran # (Auto) 0.01 (0.00-0.02) K/uL Neut # (Auto) 4.54 (1.4-6.5) K/uL Lymph # (Auto) 0.61 L (1.2-3.4) K/uL [place] # (Auto) 0.49 (0.11-0.59) K/uL Eos # (Auto) 0.02 (0-0.5) K/uL Baso # (Auto) 0.02 (0-0.2) K/uL Sodium 142 (136-145) mmol/L Potassium 4.5 (3.5-5.1) mmol/L Chloride 114 H (98-107) mmol/L Carbon Dioxide 22 (21-32) mmol/L Anion Gap 6.0 (3-11) BUN 15 (7-18) mg/dl Creatinine 1.00 (0.6-1.4) mg/dl Est Cr Clr Drug Dosing 87.4 ml/min Est GFR ( Amer) 100.6 Est GFR (Non-Af Amer) 86.8 BUN/Creatinine Ratio 14.9 (10-20) Glucose 112 H (70-99) mg/dl Calcium 9.7 (8.5-10.1) mg/dl Total Protein (PEP) Pending Albumin (PEP) Pending [id number] Pending Ftgea-4-Uvcybrxkh Pending Ejck-8-Qufwfydp Pending Kadb-5-Lijxpbsf Pending Gamma Globulins Pending Monoclonal Peak 3 Pending Ser Monoclonl Protein Pending Ser Monoclonal Prot 2 Pending PEP Interpretation Pending Ur Random Creatinine mg/dl U Random Total Protein (0-11.9) mg/dl Protein/Creatinin Ratio (0-0.2) Stl C. diff Tox B Gene (Neg) Free [place] LC, Quant Free Lambda LC, Quant Free [place]/Lambda Ratio 07/04/19 07/04/19 07/04/19 Range/Units 12:35 12:35 11:07 WBC (4.8-10.8) K/uL RBC (4.7-6.1) M/uL Hgb (14.0-18.0) g/dL Hct (42-52) % MCV (80-100) fL MCH (25-34) pg MCHC (32-36) g/dL RDW Std Deviation (36.4-46.3) fL RDW Coeff of Silvestre (11.5-14.5) % Plt Count (130-400) K/uL MPV (7.4-10.4) fL Immature Gran % (Auto) % Neut % (Auto) % Lymph % (Auto) % [place] % (Auto) % Eos % (Auto) % Baso % (Auto) % Immature Gran # (Auto) (0.00-0.02) K/uL Neut # (Auto) (1.4-6.5) K/uL Lymph # (Auto) (1.2-3.4) K/uL [place] # (Auto) (0.11-0.59) K/uL Eos # (Auto) (0-0.5) K/uL Baso # (Auto) (0-0.2) K/uL Sodium (136-145) mmol/L Potassium (3.5-5.1) mmol/L Chloride (98-107) mmol/L Carbon Dioxide (21-32) mmol/L Anion Gap (3-11) BUN (7-18) mg/dl Creatinine (0.6-1.4) mg/dl Est Cr Clr Drug Dosing ml/min Est GFR ( Amer) Est GFR (Non-Af Amer) BUN/Creatinine Ratio (10-20) Glucose (70-99) mg/dl Calcium (8.5-10.1) mg/dl Total Protein (PEP) Pending Albumin (PEP) Pending [id number] Pending Dzjkh-3-Klhtkdwla Pending Xvkr-9-Ggorxkkc Pending Nvpv-9-Elaftuiw Pending Gamma Globulins Pending Monoclonal Peak 3 Pending Ser Monoclonl Protein Pending Ser Monoclonal Prot 2 Pending PEP Interpretation Pending Ur Random Creatinine 57.8 mg/dl U Random Total Protein 67.6 H (0-11.9) mg/dl Protein/Creatinin Ratio 1.2 H (0-0.2) Stl C. diff Tox B Gene Negative Cdiff Gene (Neg) Free [place] LC, Quant Pending Free Lambda LC, Quant Pending Free [place]/Lambda Ratio Pending Medications Administered Current Inpatient Medications Acetaminophen (Tylenol) 650 mg PO Q4H ROBERTO Stop: 08/04/19 08:59 Last Admin: 07/05/19 09:23 Dose: 650 mg Documented by: Calcitonin [place] (Calcimar) 320 units SQ BID ROBERTO Stop: 08/03/19 00:59 Last Admin: 07/05/19 09:34 Dose: 320 units Documented by: Enoxaparin Sodium (Lovenox) 30 mg SQ QAM ROBERTO Stop: 08/03/19 08:59 Last Admin: 07/05/19 08:17 Dose: 30 mg Documented by: Potassium Chloride/Sodium Chloride (Normal Saline W/20 Meq Kcl) 20 meq in 1,000 mls @ 200 mls/hr IV .Q5H ROBERTO Stop: 08/03/19 00:44 Last Admin: 07/05/19 08:04 Dose: 200 mls/hr Documented by: Promethazine HCl 12.5 mg/ (Sodium Chloride) 50.5 mls @ 202 mls/hr IV Q6H PRN PRN Reason: Nausea And Vomiting Stop: 08/03/19 00:16 Last Infusion: 07/04/19 01:50 Dose: Infused Documented by: Lorazepam (Ativan) 0.25 mg in 0.5 mls @ 0.5 mls/min IV Q4H PRN PRN Reason: Anxiety Stop: 08/03/19 00:16 Lidocaine (Lidoderm 5%) 1 patch TD HS ROBERTO Stop: 08/03/19 01:14 Last Admin: 07/04/19 21:01 Dose: 1 patch Documented by: Meclizine HCl (Antivert) 25 mg PO TID PRN PRN Reason: DIZZINESS Stop: 08/03/19 00:34 Miscellaneous (Remove Lidoderm Patch) 1 ea N/A QAM ROBERTO Stop: 08/03/19 10:59 Last Admin: 07/05/19 08:17 Dose: 1 ea Documented by: Morphine Sulfate (Morphine Sulfate) 2 mg IV Q4H PRN PRN Reason: Pain Stop: 07/18/19 00:16 Ondansetron HCl (Zofran) 4 mg IV Q6H PRN PRN Reason: Nausea Stop: 08/03/19 08:03 Last Admin: 07/05/19 06:18 Dose: 4 mg Documented by: Oxycodone/Acetaminophen (Percocet 5mg/325mg) 1 tab PO Q4H PRN PRN Reason: Pain Stop: 07/18/19 00:16 Tramadol HCl (Ultram) 50 mg PO Q4H PRN PRN Reason: Pain Stop: 08/04/19 08:48 (1) Low back pain Back pain laterality: midline Chronicity: acute Sciatica presence: unspecified whether sciatica present Qualified Code(s): M54.5 - Low back pain
[2019-07-05] MEDS: TRAMADOL HCL 50 MG TABLET PO PRN ×2 (15:47→22:23)
--- NOTE | 2019-07-05 17:29 | Nephrology Progress Note ---
Date of Service July 05, 2019 Assessment & Plan (1) Hypercalcemia: Patient with non-PTH related hypercalcemia. His PTH is appropriately suppressed. Etiology of his hypercalcemia likely secondary to malignancy or granulomatous disease. Multiple myeloma is a possibility given bone pain although does not have significant anemia. He has proteinuria of 1.2g His calcium was improved with IV fluids, zometa and calcitonin. We discussed need to limit calcium and vitamin D intake. We will obtain PTH related peptide and 1, 25 vitamin D levels. -Recommend age-appropriate cancer screening. Would obtain records of his colonoscopy. -We will obtain urine protein, SPEP, serum free light chains (2) Abnormal finding on CT scan: Patient found to have an exophytic lesion on the left kidney on the CT scan done July 02, 2019. Repeat CT scan 07/03 did not reveal the exophytic lesion. He will likely need follow-up imaging as an outpatient. Urology input appreciated Subjective He feels better but still sternal pain and rib pain. No SOB. Ca down to 9.7 Review of Systems Review of Systems: All systems reviewed & are unremarkable except as noted in HPI & below Physical Exam Physical Exam: General exam: Appears comfortable, no acute distress HEENT: Pupils are equal and reactive to light Neck: No JVD, neck is supple trachea is midline Respiratory system: Clear breath sounds bilaterally. tenderness along sternum Gastrointestinal: Abdomen is soft, non distended, non tender, bowel sounds are present CVS: Regular rate and rhythm. No murmurs, rubs or gallops Musculoskeletal: No joint or muscle tenderness Extremities: Non tender, no edema, peripheral pulses are present Neuro: Oriented, no tremors, no focal neurological deficits Skin: No rashes Results & Data Vital Signs (Past 12 Hours) Vital Signs Temp Pulse Resp BP Pulse Ox 07/05/19 15:41 36.8 C 92 H 19 107/61 92 07/05/19 12:05 36.8 C 87 16 93/52 L 95 07/05/19 07:28 36.8 C 93 H 16 112/57 L 95 Laboratory Results Laboratory Results - last 24 hr 07/05/19 07/05/19 07/05/19 08:04 08:04 08:04 WBC 5.69 RBC 3.57 L Hgb 10.8 L Hct 31.2 L MCV 87.4 MCH 30.3 MCHC 34.6 RDW Std Deviation 42.0 RDW Coeff of Silvestre 13.1 Plt Count 160 MPV 9.2 Immature Gran % (Auto) 0.2 Neut % (Auto) 79.7 Lymph % (Auto) 10.7 [place] % (Auto) 8.6 Eos % (Auto) 0.4 Baso % (Auto) 0.4 Immature Gran # (Auto) 0.01 Neut # (Auto) 4.54 Lymph # (Auto) 0.61 L [place] # (Auto) 0.49 Eos # (Auto) 0.02 Baso # (Auto) 0.02 Sodium 142 Potassium 4.5 Chloride 114 H Carbon Dioxide 22 Anion Gap 6.0 BUN 15 Creatinine 1.00 Est Cr Clr Drug Dosing 87.4 Est GFR ( Amer) 100.6 Est GFR (Non-Af Amer) 86.8 BUN/Creatinine Ratio 14.9 Glucose 112 H Calcium 9.7 Total Protein (PEP) Pending Albumin (PEP) Pending Ggaon-2-Yqbgrsmog Pending Wvifw-1-Iozwbivhl Pending Maaq-3-Nzuljaby Pending Vyxl-1-Afeloqcg Pending Gamma Globulins Pending Monoclonal Peak 3 Pending Ser Monoclonl Protein Pending Ser Monoclonal Prot 2 Pending PEP Interpretation Pending
[2019-07-05 18:16] LABS: Albumin 3.5 G/DL (3.8-4.8); Alpha 1 Globulin 0.3 G/DL (0.2-0.3); Alpha 2 Globulin 0.5 G/DL (0.5-0.9); Beta-1-Globulin 0.4 G/DL (0.4-0.6); Beta-2-Globulin 0.3 G/DL (0.2-0.5); Free Kappa/Lambda Ratio >1000.00 (0.26-1.65); Free Lambda 1.5 MG/L (5.7-26.3); Gamma Globulin 0.4 G/DL (0.8-1.7); Monoclonal Protein Band 1 0.1 G/DL (NOT DETECTED); Monoclonal Protein Band 2 DNR G/DL (NOT DETECTED); Monoclonal Protein Band 3 DNR G/DL (NOT DETECTED); Total Protein 5.4 G/DL (6.2-8.3)
[2019-07-05] MEDS: LIDOCAINE 5% 1 PATCH TD SCH (20:35)
[2019-07-06] MEDS: ACETAMINOPHEN 325 MG TAB PO SCH ×7 (00:48→21:02)
[2019-07-06 06:52] LABS: Basophils # (auto) 0.03 K/uL (0-0.2); Basophils % (auto) 0.7 %; Eosinophils # (auto) 0.03 K/uL (0-0.5); Eosinophils % (auto) 0.7 %; Hematocrit (blood only) 31.8 % (42-52); Immature Granulocytes # (auto) 0.03 K/uL (0.00-0.02); Immature Granulocytes % (auto) 0.7 %; Lymphocytes # (auto) 0.71 K/uL (1.2-3.4); Lymphocytes % (auto) 15.6 %; Mean Corpuscular Hemoglobin 29.6 pg (25-34); Mean Corpuscular Hgb Conc 34.6 g/dL (32-36); Mean Corpuscular Volume 85.7 fL (80-100); Mean Platelet Volume 8.9 fL (7.4-10.4); Monocytes # (auto) 0.52 K/uL (0.11-0.59); Monocytes % (auto) 11.4 %; Neutrophils # (auto) 3.24 K/uL (1.4-6.5); Neutrophils % (auto) 70.9 %; Platelet Count 172 K/uL (130-400); RDW Coefficient of Variation 12.9 % (11.5-14.5); RDW Standard Deviation 40.5 fL (36.4-46.3); Red Blood Count 3.71 M/uL (4.7-6.1); White Blood Count 4.56 K/uL (4.8-10.8)
[2019-07-06 07:29] LABS: BUN Creatinine Ratio 11.2 (10-20); Calcium 8.9 mg/dl (8.5-10.1); Creatinine Clr Calc Pharmacy 104.6 ml/min; Est GFR (African American) 112.7; Est GFR (Non-African American) 97.2; Magnesium 1.6 mg/dl (1.8-2.4); Potassium 3.8 mmol/L (3.5-5.1)
[2019-07-06] MEDS: CALCITONIN SALMON 400 UNITS/2 ML SQ SCH ×2 (09:20→21:02)
[2019-07-06] MEDS: ENOXAPARIN INJ 30 MG/0.3 ML SYR SQ SCH (09:25)
--- NOTE | 2019-07-06 10:18 | Nephrology Progress Note ---
Date of Service July 06, 2019 Assessment & Plan (1) Hypercalcemia: Patient with non-PTH related hypercalcemia likely due to multiple myeloma. His kappa lambda ratio is over thousand. his PTH is appropriately suppressed. Multiple myeloma is a possibility given bone pain although does not have significant anemia. He has proteinuria of 1.2g His calcium was improved with IV fluids, zometa and calcitonin. We discussed need to limit calcium and vitamin D intake. -Replaced hematology consult. He will likely need a bone marrow. -We will obtain PTH related peptide and 1, 25 vitamin D levels. -Recommend age-appropriate cancer screening. Would obtain records of his colonoscopy. -We will obtain urine protein, SPEP, (2) Abnormal finding on CT scan: Patient found to have an exophytic lesion on the left kidney on the CT scan done July 02, 2019. Repeat CT scan 07/03 did not reveal the exophytic lesion. He will likely need follow-up imaging as an outpatient. Urology input appreciated Subjective Patient still complaining of pain along the sternum and ribs as well as lower back pain. No shortness of breath. He has some nausea. Calcium is controlled. Review of Systems Review of Systems: All systems reviewed & are unremarkable except as noted in HPI & below Physical Exam Physical Exam: General exam: Appears comfortable, no acute distress HEENT: Pupils are equal and reactive to light Neck: No JVD, neck is supple trachea is midline Respiratory system: Clear breath sounds bilaterally. Tenderness along the sternum Gastrointestinal: Abdomen is soft, non distended, non tender, bowel sounds are present CVS: Regular rate and rhythm. No murmurs, rubs or gallops Musculoskeletal: No joint or muscle tenderness Extremities: Non tender, no edema, peripheral pulses are present Neuro: Oriented, no tremors, no focal neurological deficits Skin: No rashes Results & Data Vital Signs (Past 12 Hours) Vital Signs Temp Pulse Pulse Resp BP BP Pulse Ox 07/06/19 07:27 37.0 C 86 18 101/62 95 07/06/19 03:24 37.5 C 83 20 96/63 L 94 07/06/19 00:03 85 07/05/19 23:40 36.8 C 85 20 104/63 95 Laboratory Results Laboratory Results - last 24 hr 07/04/19 07/06/19 07/06/19 11:07 06:41 06:41 WBC 4.56 L RBC 3.71 L Hgb 11.0 L Hct 31.8 L MCV 85.7 MCH 29.6 MCHC 34.6 RDW Std Deviation 40.5 RDW Coeff of Silvestre 12.9 Plt Count 172 MPV 8.9 Immature Gran % (Auto) 0.7 Neut % (Auto) 70.9 Lymph % (Auto) 15.6 [place] % (Auto) 11.4 Eos % (Auto) 0.7 Baso % (Auto) 0.7 Immature Gran # (Auto) 0.03 H Neut # (Auto) 3.24 Lymph # (Auto) 0.71 L [place] # (Auto) 0.52 Eos # (Auto) 0.03 Baso # (Auto) 0.03 Sodium 139 Potassium 3.8 D Chloride 110 H Carbon Dioxide 21 Anion Gap 8.0 BUN 10 D Creatinine 0.91 Est Cr Clr Drug Dosing 104.6 Est GFR ( Amer) 112.7 Est GFR (Non-Af Amer) 97.2 BUN/Creatinine Ratio 11.2 Glucose 105 H Calcium 8.9 Magnesium 1.6 L Total Protein (PEP) 5.4 L Albumin (PEP) 3.5 L Givfb-4-Fkkzvhhfu 0.3 Zpymk-5-Nszgiegci 0.5 Tsjn-2-Vhsfldtg 0.4 Vxsd-5-Qztgqwvu 0.3 Gamma Globulins 0.4 L Monoclonal Peak 3 DNR Ser Monoclonl Protein 0.1 H Ser Monoclonal Prot 2 DNR PEP Interpretation SEE NOTE Free [place] LC, Quant 3258.0 H Free Lambda LC, Quant 1.5 L Free [place]/Lambda Ratio >1000.00 H
[2019-07-06] MEDS ORDERED: MAGNESIUM SULFATE / D5W 1 GM/100 ML BAG IV ONE (10:30)
[2019-07-06] MEDS ORDERED: OXYCODONE HCL IR 5 MG TAB (IMMEDIATE RELEASE) PO PRN (12:51)
--- NOTE | 2019-07-06 16:57 | Hospitalist Progress Note ---
Date of Service July 06, 2019 Assessment & Plan (1) Hypercalcemia: Symptomatic hypercalcemia manifesting as musculoskeletal complaints of 2 months duration. Serum calcium levels noted to be elevated on multiple occasions this month. (10.2-12.8) Non-PTH related In the setting of anemia and proteinuria, differential include multiple myeloma vs. ? Secondary to left renal lesion on CT done at [facility] 07/02/19 S/P IV fluids, calcitonin and zometa. Calcium is 8.[address] from this admission did not show lesion seen in previous one at [place]. Was evaluated by urology who recommends follow-up CT in 6 months. SPEP, UPEP, PTHrP, FLC pending Testing Consultant consult after discussion with Ventilation Worker Need records of reported colonoscopies Anemia Hb is 11 today. Was 13.6 on admission. Drop likely due to IVF Has remained stable in the past 24h. Will continue to monitor (2) Low back pain: Patient seen at [facility] ER for headache, jaw pain, chest pain and flank pain. Tenderness was noted on palpation of mandible yesterday. Facial CT obtained yesterday was negative Back pain, possibly secondary to exophytic incidental finding however not noted on current CT, urology was consulted and plan to observe and repeat CT in 6 months. Pain control. (3) Abnormal finding on CT scan: Repeat CT obtained on admission, does not show the incidental finding that was noted at [facility]. Urology was consulted and they plan to do another follow-up CT in 6 months and observe. Subjective Patient seen and examined. Reports generalized pain, mostly in sternum, bilateral ribs and flank. Denied any fevers. Reports some nausea. Denied any diarrhea, abd pain. Last bowel movement was 2 days ago. Passing flatus Denied any cough, SOB Reports fatigue Review of Systems Constitutional: + fatigue and + anorexia; no fever and no chills Eyes: no problem reported Respiratory: no problem reported Cardiovascular: + chest pain; no dyspnea, no orthopnea and no lightheadedness Gastrointestinal: + nausea; no heartburn, no vomiting, no dysphagia and no diarrhea/loose stools Genitourinary: no problem reported Musculoskeletal: as per Subjective / HPI Physical Exam Physical Exam: General: No acute distress Eyes: PERRL, EOM intact bilaterally ENMT: External ear and nose normal, oropharynx normal Neck: Normal visual inspection, no tracheal deviation, no swelling noted Respiratory: Normal respiratory effort, no respiratory distress, lungs clear to auscultation, no crackles and no wheezes Cardiovascular: Pulse is RRR. Heart Sounds: normal S1 and normal S2 Extremities: no pedal edema Chest (Breasts): Chest: normal inspection of chest, tenderness on palpation of sternum Gastrointestinal (Abdomen): Abdomen is not distended, soft, non-tender to palpation, no guarding, no palpable hepatosplenomegaly, normal bowel sounds Musculoskeletal: No cyanosis or clubbing, no leg edema Skin: No rash noted on gross inspection, No ulcers noted Neurologic: Alert and oriented x 3, No focal weakness, sensation grossly intact Psychiatric: Alert and oriented x 3, euthymic affect, no depressed affect Results & Data Vital Signs (Past 12 Hours) Vital Signs Temp Pulse Resp BP BP Pulse Ox 07/06/19 15:15 79 28 H 106/68 94 07/06/19 11:23 36.8 C 67 18 95/54 L 96 07/06/19 07:27 37.0 C 86 18 101/62 95 Laboratory Results Abnormal lab results 07/04/19 07/06/19 07/06/19 Range/Units 11:07 06:41 06:41 WBC 4.56 L (4.8-10.8) K/uL RBC 3.71 L (4.7-6.1) M/uL Hgb 11.0 L (14.0-18.0) g/dL Hct 31.8 L (42-52) % Immature Gran # (Auto) 0.03 H (0.00-0.02) K/uL Lymph # (Auto) 0.71 L (1.2-3.4) K/uL Chloride 110 H (98-107) mmol/L Glucose 105 H (70-99) mg/dl Magnesium 1.6 L (1.8-2.4) mg/dl Total Protein (PEP) 5.4 L (6.2-8.3) G/DL Albumin (PEP) 3.5 L (3.8-4.8) G/DL Gamma Globulins 0.4 L (0.8-1.7) G/DL Ser Monoclonl Protein 0.1 H (NOT DETECTED) G/DL Free [place] LC, Quant 3258.0 H (3.3-19.4) MG/L Free Lambda LC, Quant 1.5 L (5.7-26.3) MG/L Free [place]/Lambda Ratio >1000.00 H (0.26-1.65) (1) Low back pain Back pain laterality: midline Chronicity: acute Sciatica presence: unspecified whether sciatica present Qualified Code(s): M54.5 - Low back pain
[2019-07-06 18:02] LABS: Albumin 3.3 G/DL (3.8-4.8); Alpha 1 Globulin 0.3 G/DL (0.2-0.3); Alpha 2 Globulin 0.5 G/DL (0.5-0.9); Beta-1-Globulin 0.3 G/DL (0.4-0.6); Beta-2-Globulin 0.2 G/DL (0.2-0.5); Gamma Globulin 0.4 G/DL (0.8-1.7); Monoclonal Protein Band 1 DNR G/DL (NOT DETECTED); Monoclonal Protein Band 2 DNR G/DL (NOT DETECTED); Monoclonal Protein Band 3 DNR G/DL (NOT DETECTED); Total Protein 5.1 G/DL (6.2-8.3)
[2019-07-06] MEDS: OXYCODONE HCL IR 5 MG TAB (IMMEDIATE RELEASE) PO PRN ×2 (18:25→22:42)
[2019-07-06 20:39] LABS: Ehrlichia chaff IgG Ab <1:64 (<1:64); Ehrlichia chaff IgM Ab <1:20 (<1:20)
[2019-07-06] MEDS: LIDOCAINE 5% 1 PATCH TD SCH (20:58)
[2019-07-07] MEDS: ACETAMINOPHEN 325 MG TAB PO SCH ×6 (01:00→20:59)
[2019-07-07] MEDS: MoRPHine SULFATE 2 MG/ML CARP IV PRN ×2 (04:43→18:21)
[2019-07-07] MEDS: ONDANSETRON INJ 2 MG/ML 2 ML VIAL IV PRN (04:44)
[2019-07-07 06:30] LABS: Hematocrit (blood only) 33.2 % (42-52); Hemoglobin 11.8 g/dL (14.0-18.0); Mean Corpuscular Hemoglobin 29.9 pg (25-34); Mean Corpuscular Hgb Conc 35.5 g/dL (32-36); Mean Corpuscular Volume 84.3 fL (80-100); Mean Platelet Volume 9.4 fL (7.4-10.4); Platelet Count 185 K/uL (130-400); RDW Standard Deviation 39.6 fL (36.4-46.3); Red Blood Count 3.94 M/uL (4.7-6.1); White Blood Count 4.53 K/uL (4.8-10.8)
[2019-07-07 07:14] LABS: BUN Creatinine Ratio 11.2 (10-20); Calcium 8.9 mg/dl (8.5-10.1); Creatinine Clr Calc Pharmacy 109.2 ml/min; Est GFR (African American) 119.9; Est GFR (Non-African American) 103.4; Potassium 3.6 mmol/L (3.5-5.1)
[2019-07-07] MEDS: ENOXAPARIN INJ 30 MG/0.3 ML SYR SQ SCH (09:11)
[2019-07-07] MEDS: CALCITONIN SALMON 400 UNITS/2 ML SQ SCH ×2 (09:12→21:02)
[2019-07-07] MEDS: POLYETHYLENE (MIRALAX) 17 GM PACK PO SCH (09:14)
[2019-07-07] MEDS: OXYCODONE HCL IR 5 MG TAB (IMMEDIATE RELEASE) PO PRN ×3 (11:10→19:39)
--- NOTE | 2019-07-07 15:26 | Hospitalist Progress Note ---
Date of Service July 07, 2019 Assessment & Plan (1) Hypercalcemia: Symptomatic hypercalcemia manifesting as musculoskeletal complaints of 2 months duration. Serum calcium levels noted to be elevated on multiple occasions this month. (10.2-12.8) Non-PTH related. PTH 7.1 In the setting of anemia and proteinuria, differential include multiple myeloma vs. ? Secondary to left renal lesion on CT done at [facility] 07/02/19 S/P IV fluids, calcitonin and zometa. Calcium is 8.[address] from this admission did not show lesion seen in previous one at [place]. Was evaluated by urology who recommends follow-up CT in 6 months. PEP report noted Awaiting PTHrP and other outstanding test Awaiting erecting engineer evaluation Need records of reported colonoscopies Pain management with oxycodone PT eval Anemia Hb is 11.8 today. Was 13.6 on admission. Drop likely due to IVF Has remained stable in the past 24h. Will continue to monitor (2) Low back pain: Patient seen at [facility] ER for headache, jaw pain, chest pain and flank pain. Tenderness was noted on palpation of mandible yesterday. Facial CT obtained yesterday was negative Back pain, possibly secondary to exophytic incidental finding however not noted on current CT, urology was consulted and plan to observe and repeat CT in 6 months. Pain control. (3) Abnormal finding on CT scan: Repeat CT obtained on admission, does not show the incidental finding that was noted at [facility]. Urology was consulted and they plan to do another follow-up CT in 6 months and observe. Subjective Patient seen and examined this morning. Still reports generalized pain especially in sternum, ribs, back. Still reports fatigue and poor appetite Denied any fevers, chills, nausea, vomiting, cough Review of Systems Review of Systems: All systems reviewed and unremarkable except for mentioned above. Physical Exam Physical Exam: General: No acute distress Eyes: PERRL, EOM intact bilaterally ENMT: External ear and nose normal, oropharynx normal Neck: Normal visual inspection, no tracheal deviation, no swelling noted Respiratory: Normal respiratory effort, no respiratory distress, lungs clear to auscultation, no crackles and no wheezes Cardiovascular: Pulse is RRR. Heart Sounds: normal S1 and normal S2 Extremities: no pedal edema Chest (Breasts): Chest: normal inspection of chest, tenderness on palpation of sternum Gastrointestinal (Abdomen): Abdomen is not distended, soft, non-tender to palpation, no guarding, no palpable hepatosplenomegaly, normal bowel sounds Musculoskeletal: No cyanosis or clubbing, no leg edema Neurologic: Alert and oriented x 3, generalized weakness. Results & Data Vital Signs (Past 12 Hours) Vital Signs Temp Pulse Resp BP BP Pulse Ox 07/07/19 12:54 36.8 C 75 18 106/70 96 07/07/19 08:00 37.1 C 72 18 103/64 96 07/07/19 03:37 37.1 C 79 18 108/66 96 Laboratory Results PEP -Consistent with non-selective protein loss. Correlation with patient clinical history is required. Evaluation reveals a faint restricted band (M-spike) migrating in the gamma globulin region. If not already requested, Immunofixation should be considered. (1) Low back pain Back pain laterality: midline Chronicity: acute Sciatica presence: unspecified whether sciatica present Qualified Code(s): M54.5 - Low back pain
[2019-07-07] MEDS: LIDOCAINE 5% 1 PATCH TD SCH (20:59)
[2019-07-08] MEDS: ACETAMINOPHEN 325 MG TAB PO SCH ×4 (01:10→13:06)
[2019-07-08 05:36] LABS: Hematocrit (blood only) 35.1 % (42-52); Hemoglobin 12.5 g/dL (14.0-18.0); Mean Corpuscular Hemoglobin 29.8 pg (25-34); Mean Corpuscular Hgb Conc 35.6 g/dL (32-36); Mean Corpuscular Volume 83.8 fL (80-100); Mean Platelet Volume 9.5 fL (7.4-10.4); Platelet Count 210 K/uL (130-400); RDW Coefficient of Variation 13.2 % (11.5-14.5); RDW Standard Deviation 39.5 fL (36.4-46.3); Red Blood Count 4.19 M/uL (4.7-6.1); White Blood Count 4.71 K/uL (4.8-10.8)
[2019-07-08] MEDS: OXYCODONE HCL IR 5 MG TAB (IMMEDIATE RELEASE) PO PRN (06:03)
[2019-07-08 06:14] LABS: BUN Creatinine Ratio 11.4 (10-20); Calcium 8.7 mg/dl (8.5-10.1); Creatinine Clr Calc Pharmacy 107.9 ml/min; Est GFR (African American) 119.3; Est GFR (Non-African American) 102.9; Potassium 3.6 mmol/L (3.5-5.1)
[2019-07-08] MEDS ORDERED: OXYCODONE HCL IR 5 MG TAB (IMMEDIATE RELEASE) PO PRN (07:57)
[2019-07-08] MEDS: ENOXAPARIN INJ 30 MG/0.3 ML SYR SQ SCH (08:49)
[2019-07-08] MEDS: POLYETHYLENE (MIRALAX) 17 GM PACK PO SCH (08:51)
[2019-07-08] MEDS: CALCITONIN SALMON 400 UNITS/2 ML SQ SCH (08:57)
--- NOTE | 2019-07-08 10:09 | Nephrology Progress Note ---
Date of Service July 08, 2019 Assessment & Plan (1) Hypercalcemia: Patient with non-PTH related hypercalcemia likely due to multiple myeloma. His kappa lambda ratio is over thousand. his PTH is appropriately suppressed. Multiple myeloma is a possibility given bone pain although does not have significant anemia. He has proteinuria of 1.2g His calcium was improved with IV fluids, zometa and calcitonin. We discussed need to limit calcium and vitamin D intake. -Hematology was consulted, they recommended outpatient follow-up. He will likely need a bone marrow. -PTH related peptide and 1, 25 vitamin D levels pending. -Recommend age-appropriate cancer screening. Would obtain records of his colonoscopy. -From the renal standpoint patient can be discharged. He will need follow-up with hematology in 1 to 2 weeks or sooner as available. He will need a BMP 1 week after discharge. He will need nephrology follow-up at least in a month. Care coordinated with (2) Abnormal finding on CT scan: Patient found to have an exophytic lesion on the left kidney on the CT scan done July 02, 2019. Repeat CT scan 07/03 did not reveal the exophytic lesion. He will likely need follow-up imaging as an outpatient. Urology input appreciated Subjective Patient complaining of bone pain along the sternum and ribs. His pain is controlled with oxycodone and Tylenol. No shortness of breath. No vomiting or diarrhea. Calcium remains stable Review of Systems Review of Systems: All systems reviewed & are unremarkable except as noted in HPI & below Physical Exam Physical Exam: General exam: Appears comfortable, no acute distress HEENT: Pupils are equal and reactive to light Neck: No JVD, neck is supple trachea is midline Respiratory system: Clear breath sounds bilaterally. Gastrointestinal: Abdomen is soft, non distended, non tender, bowel sounds are present CVS: Regular rate and rhythm. No murmurs, rubs or gallops Musculoskeletal: No joint or muscle tenderness Extremities: Non tender, no edema, peripheral pulses are present Neuro: Oriented, no tremors, no focal neurological deficits Skin: No rashes Results & Data Vital Signs (Past 12 Hours) Vital Signs Temp Pulse Pulse Resp BP BP Pulse Ox 07/08/19 07:56 36.7 C 71 16 110/66 97 07/08/19 04:17 36.8 C 73 20 117/66 97 07/08/19 00:24 74 07/08/19 00:22 36.8 C 82 17 101/61 95 Laboratory Results Laboratory Results - last 24 hr 07/08/19 07/08/19 05:22 05:22 WBC 4.71 L RBC 4.19 L Hgb 12.5 L Hct 35.1 L MCV 83.8 MCH 29.8 MCHC 35.6 RDW Std Deviation 39.5 RDW Coeff of Silvestre 13.2 Plt Count 210 MPV 9.5 Sodium 138 Potassium 3.6 Chloride 107 Carbon Dioxide 22 Anion Gap 9.0 BUN 9 Creatinine 0.81 Est Cr Clr Drug Dosing 107.9 Est GFR ( Amer) 119.3 Est GFR (Non-Af Amer) 102.9 BUN/Creatinine Ratio 11.4 Glucose 110 H Calcium 8.7
--- NOTE | 2019-07-08 17:42 | Discharge Summary ---
Date of Service July 08, 2019 Admission HPI Per Admitting Provider History obtained from patient, family, and records. No significant medical history. Last April 2019, patient noted sudden sharp stabbing low back pain after bending over to sheepskin pickler something in his barn. X-ray showed a symmetric disc narrowing at T11-T12 level. Fair amount calcification throughout the costochondral cartilages especially on sternum. [place] [facility] [place]. Symptoms attributed to costochondritis for which analgesics were recommended. Rheumatology consult recommended for possible seronegative arthritis. Persistent pain later accompanied by pleuritic chest pain and achy abdominal pain with constipation symptoms over the next 2 months resulting in multiple [facility] ER visits. Serum calcium levels noted to be elevated on multiple occasions this month. (10.2-12.8) Patient denies inordinate milk/antacid intake. Patient seen at [facility] ER yesterday for headache, jaw pain, chest pain and flank pain. No hematuria. Serum potassium noted to be 12.8. CT chest no pulmonary embolism CT abdomen pelvis read: T11 compression fracture. Question small exophytic lesion upper medial aspect of left upper pole kidney. Further evaluation to exclude tiny malignancy recommended. Nonobstructing right intrarenal calcification. Patient told to follow-up with PCP. Patient brought to the ER by family for worsening symptoms. Nonbloody diarrhea symptoms noted today. Medical History as above Surgical History : Finger amputation, tonsillectomy Family History : Mu's granulomatosis Personal/Social history : Non-smoker, no EtOH intake, coreas Admission Exam Per Admitting Provider GENERAL: uncomfortable, no respiratory distress SKIN: Normal color, warm HEENT: [place] palpebral conjunctivae, no ptosis, dry buccal mucosa NECK : Supple, no tenderness CHEST : CTA, anterior chest wall tenderness HEART : RRR, no obvious murmurs ABDOMEN: Some distention, central abdominal tenderness EXTREMITIES : No LE swelling/tenderness, amputation stump left thumb NEUROLOGIC : Coherent, no facial asymmetry, no other gross focality Principal Diagnosis Hypercalcemia Proteinuria Normocytic anemia Chest pain Discharge Exam General: No acute distress Eyes: PERRL, EOM intact bilaterally ENMT: External ear and nose normal, oropharynx normal Neck: Normal visual inspection, no tracheal deviation, no swelling noted Respiratory: Normal respiratory effort, no respiratory distress, lungs clear to auscultation, no crackles and no wheezes Cardiovascular: Pulse is RRR. S1 S2 no edema Chest (Breasts): Chest: normal inspection of chest, tenderness on palpation of sternum Gastrointestinal (Abdomen): Abdomen is not distended, soft, non-tender to palpation, no guarding, no palpable hepatosplenomegaly, normal bowel sounds Musculoskeletal: No cyanosis or clubbing, no leg edema Neurologic: Alert and oriented x 3, generalized weakness. Discharge Data Allergies Allergy/AdvReac Type Severity Reaction Status Date / Time Penicillins Allergy Severe Swelling Verified 07/03/19 20:33 of Lip/Tongue/Throat Consultations 07/03/19 21:52 ED Decision to Admit Stat 07/04/19 00:17 Consult Nephrology Routine 07/04/19 00:42 Consult Urology Routine 07/06/19 10:08 Consult Hematology Routine Ordered Studies 07/03/19 20:04 CT abd pelvis IV con only Stat No significant abnormality identified within the abdomen or pelvis. Mild dependent atelectasis of the chest versus minimal bibasilar infiltrates. CT angio chest PE protocol Stat No evidence for pulmonary embolus. The lungs are clear. 07/03/19 22:49 CT head/brain wo con Urgent No acute intracranial abnormality. 07/04/19 14:03 CT facial bones wo con Routine Allowing for the lack of intravenous contrast, no evidence of inflammatory change associated with the oral cavity. No convincing evidence of abscess. No endodontic or periodontal disease. Amalgam only mildly limits evaluation Hospital Course (1) Hypercalcemia: Symptomatic hypercalcemia manifesting as musculoskeletal complaints of 2 months duration. Serum calcium levels noted to be elevated on multiple occasions this month. (10.2-12.8) Non-PTH related. PTH 7.1 In the setting of anemia and proteinuria, differential include multiple myeloma vs. ? Secondary to left renal lesion on CT done at [facility] 07/02/19 S/P IV fluids, calcitonin and zometa. Calcium normalized CT at [place] on 07/02/19 reported possible exophytic lesion in left kidney and compression of superior endplate of T11. Current CT from this admission did not show lesion seen in previous one at [place]. Was evaluated by urology who recommends follow-up CT in 6 months. Hypercalcemia, bone pains, proteinuria, anemia is suggestive of possible myeloma PTHrp and some other work up labs still pending Discussed with Dr Bowie yesterday. Patient needs to be seen in Hematology office for further evaluation Discharged patient on pain management with oxycodone Provided education regarding opioid side effects including addiction and overdose. Reviewed PDMP. Provided a week dose. Will follow up PCP for reevaluation Normocytic Anemia Hb is 12.5 today. Was 13.6 on admission. (2) Low back pain: Patient seen at [facility] ER for headache, jaw pain, chest pain and flank pain. Tenderness was noted on palpation of mandible. Facial CT obtained yesterday was negative for odontogenic abscess Back pain, possibly secondary to exophytic incidental finding however not noted on current CT, urology was consulted and plan to observe and repeat CT in 6 months. Pain control. (3) Abnormal finding on CT scan: Repeat CT obtained on admission, does not show the incidental finding that was noted at [facility]. Urology was consulted and they plan to do another follow-up CT in 6 months and observe. Total Time Total Time Spent Total Time Spent (In Minutes): 35 Total Time Includes: Examination of the Patient, Discharge Planning, Medication Reconciliation and Communication With Other Providers Discharge Plan Discharge Items Patient Disposition: Home - Self-Care Reason For Visit: Chest pain, HYPERCALCEMIA Discharge Diagnosis: Hypercalcemia Chest pain Proteinuria Anemia Condition on Discharge: Good Activity: Resume your previous activity Activity Comment: As tolerated Non-emergency contact: Primary Care Provider Call non-emergency contact if: you have any medication questions and your symptoms worsen Follow-up/Referrals: Ada Cedillo CRNP [Primary Care Provider] - Sabrina Scherer MD [Physician] - Paul Bowie MD [Hospitalist] - Diet: Regular Ambulatory Orders: Basic Metabolic Panel (Routine) Timeframe: 20190614 Location: Determined by Patient Ordered By: Rocio Plummer Complete Blood Count with Diff (Routine) Timeframe: 20190614 Location: Determined by Patient Ordered By: Rocio Plummer Addtl Attending Provider Instructions: Mr. HuddlestonAdolfo. You came to the hospital complaining pain in multiple sites including chest, flanks and back which has been ongoing for a while. You reported recent disc narrowing/fracture for which you have a follow up appointment next month. Evaluation revealed you have elevated calcium level and elevated protein in urine. Due to history of these pains, anemia and these findings, there is marianne rn you may have myeloma or related disorders. For this, you need to follow up with the psychological examiner office for further evaluation and treatment. You also need to follow up with the Data Power Consultant. Please do the test BMP (basic metabolic panel) next week as ordered. Due to reported abnormal left kidney lesion in previous CT at [place] which was not found on CT here, you may need to repeat CT in the future for further evaluation Ensure you follow up with your Primary Doctor for continued coordination of your care. Please take the medications as prescribed in the medication list. It was a pleasure taking care of you Pending Studies at Discharge: Yes Studies:: Work up blood tests for myeloma Stand-Alone Forms: My [facility] [employer] Sports, Smoking Cessation Medications and DC Order Prescriptions: New polyethylene glycol 3350 [Miralax] 17 gram Powder In Packet 17 g PO DAILY 10 Days Qty: 10 RF: 0 docusate sodium 100 mg capsule 100 mg PO DAILY Qty: 10 RF: 0 oxycodone 5 mg tablet 5 mg PO Q6H PRN (Reason: pain, severe) 7 Days Qty: 28 RF: 0 acetaminophen [Mapap (acetaminophen)] 325 mg Tablet 650 mg PO Q4H PRN (Reason: mild pain) Qty: 50 RF: 0 Continued meclizine 25 mg Tablet 25 mg PO TID PRN (Reason: DIZZYNESS) RF: 0 ondansetron 4 mg Tablet,Disintegrating 4 mg PO Q8H PRN (Reason: Nausea) RF: 0 diclofenac sodium [Voltaren] 1 % Gel 4 g TOPICAL QID RF: 0 Discontinued acetaminophen [Tylenol Extra Strength] 500 mg Tablet 500 mg PO Q4 PRN (Reason: Pain) RF: 0 oxycodone-acetaminophen [Percocet] 5-325 mg tablet 1 tab PO Q6 PRN (Reason: Pain) RF: 0 ibuprofen [Advil] 200 mg Tablet 400 mg PO Q4 PRN (Reason: Pain) RF: 0 Discharge Orders: Discharge Order (Routine); Ordered 07/08/19 Ordered By: Rocio Plummer Admission Data Admit Date/Time: 07/03/19 22:51 Attending Provider: Rocio Plummer I. Admit Provider: Manny Mcpherson Primary Care Provider: Ada Cedillo Other Providers: Manny Mcpherson ; Leigh Seth ; Wesly Gar ; Paula Suazo ; Catrina Chavez ; Sabrina Scherer ; Pj Russo ; Tip Muñoz ; Piyush Saldivar I. ; Chacorta Moreno ; Jana Strange ; Micah Bradley ; Nuris Burks I ; Rohit Jaeger ; Joelle Prado ; Dao Vargas ; Edwar Garcia ; Paul Bowie Other Interventions: Discharge Summary Assessment (RN) Last Done: 07/08/19 12:58 DC Date/Time DO NOT enter until pt leaves facility: 07/08/19 15:00
== END 2019-07-08 15:00 | disposition home or self-care (01) | DRG 641 ==
LOC: ED 19:39 → SUATTDRO 22:51 → 2N 22:51

== ENCOUNTER 2020-08-15 18:41 | Inpatient (IN) ==
[2020-08-15] MEDS ORDERED: SODIUM CHLORIDE 0.9% 1000ML 1,000 ML IV ONE ×2 (18:53→20:18)
[2020-08-15] MEDS ORDERED: cefTRIAXone SODIUM 1,000 MG/50 ML BAG IV STA (18:53)
--- NOTE | 2020-08-15 19:12 | XRay Report ---
XR chest 1V portable HISTORY: SEPSIS COMPARISON: None. FINDINGS: No pneumothorax. No pleural effusions. The heart is mildly enlarged. Mild perihilar interst itial thickening. There are multifocal airspace opacities within the bilateral mid to lower lung zone s. This favors a multifocal pneumonia. IMPRESSION: Multifocal airspace opacities within the bilateral mid to lower lung zones. This favors a multifocal pneumonia. ACT 112: Negative or not required by law. Electronically signed by: Red Braswell M.D. 08/15/2020 7:11 PM
[2020-08-15 20:13] LABS: INR 1.2 (0.9-1.1); Partial Thromboplastin Ratio 1.2; Partial Thromboplastin Time 33.8 Seconds (21.0-31.0); Prothrombin Time 12.5 Seconds (9.0-12.0)
[2020-08-15 20:23] LABS: Alanine Aminotransferase 15 U/L (12-78); Albumin Level 2.2 gm/dl (3.4-5.0); Aspartate Aminotransferase 63 U/L (15-37); BUN Creatinine Ratio 12.9 (10-20); Blood Urea Nitrogen 52 mg/dl (7-18); Carbon Dioxide 24 mmol/L (21-32); Chloride 99 mmol/L (98-107); Creatinine Clr Calc Pharmacy 20.7 ml/min; Est GFR (African American) 18.5; Est GFR (Non-African American) 15.9; Glucose 93 mg/dl (70-99); Magnesium 2.3 mg/dl (1.8-2.4); Sodium 133 mmol/L (136-145)
[2020-08-15 20:28] LABS: Albumin Globulin Ratio 0.6 (0.9-2); Alkaline Phosphatase 142 U/L (45-117); Bilirubin,Total 0.9 mg/dl (0.2-1); Globulin 3.9 gm/dl (2.5-4.0); Total Protein 6.1 gm/dl (6.4-8.2); Troponin I < 0.015 ng/ml (0-0.045)
[2020-08-15] MEDS ORDERED: VANCOMYCIN HCL 1,500 MG in SODIUM CHLORIDE 0.9% 500 ML IV ONE (20:28)
[2020-08-15] MEDS ORDERED: VANCOMYCIN CONSULT ACTIVE PRN (20:28)
[2020-08-15] MEDS ORDERED: DEXAMETHASONE SOD INJ 10 MG/ML VIAL IV ONE (20:28)
--- NOTE | 2020-08-15 20:28 | Emergency Department Note ---
Impression & Plan Acute renal failure, Acute urinary retention, Pneumonia, COVID-19 virus infection ED Provider Note NAME: SILVIA CAMILO JR AGE: 50 SEX: M : 1970 ARRIVES VIA: Ambulance INFORMANT: Patient, prehospital personnel ED PROVIDER(S): Gwyn Retana DO CHIEF COMPLAINT: Difficulty breathing HPI: The patient is a 50-year-old male who presented to the emergency department by ambulance for an evaluation of difficulty breathing and febrile illness. The patient was also noted to have diminished urine output abdominal pain and fever. The patient's had similar symptoms in the past. He does have a history of multiple myeloma and urinary tract infections. He denies having any chest pain but does complain of significant difficulty breathing. He was recently diagnosed with COVID-19 infection. He was not seen by his primary care physician recently but was seen by his home health nurse and referred to the emergency department for further evaluation. There is been no recent falls. Patient has been compliant with all his medications. Reportedly his symptoms have been only worsening over the last 48 hours. ROS: See above HPI for pertinent positives & negatives. A total of 10 systems reviewed and were otherwise negative. PAST MEDICAL HISTORY: See Below PAST SURGICAL HISTORY: See Below FAMILY HISTORY: See Below SOCIAL HISTORY: See Below HOME MEDICATIONS: See Below ALLERGIES: See Below VITALS: See Below PHYSICAL EXAMINATION: GENERAL: The patient is listless and slow to respond to questioning. EYES: The conjunctivae are clear. The pupils are round and reactive. EARS, NOSE, MOUTH AND THROAT: The nose is without any evidence of any deformity. Mucous membranes are dry. NECK: The neck is nontender and supple. RESPIRATORY: Diminished breath sounds are noted throughout. There is scattered rhonchi with diminished breath sounds specifically at the left base. CARDIOVASCULAR: Regular rate and rhythm noted there no murmurs rubs or gallops normal S1 normal S2. GASTROINTESTINAL: The abdomen is moderately distended and diffusely tender. There is no guarding rigidity. MUSCULOSKELETAL/EXTREMITIES: There is no evidence of gross deformity full range of motion is noted in the hips and shoulders. SKIN: Skin is warm and dry. Pedal edema was noted bilaterally. NEUROLOGIC: Patient is oriented to person place and situation. Strength was diminished but symmetric. MEDICAL DECISION MAKING: The patient is a 50-year-old male who presented to the emergency department for an evaluation of abdominal pain and difficulty breathing. The patient appears to have urinary retention. He also appears to have pneumonia. The patient was on hospice recently but is choosing to take himself off of hospice. The patient appears to have renal failure because of urinary retention also appears to have pneumonia. He was treated with IV antibiotics and IV fluids in the emergency department. He was reevaluated multiple times. He is Covid positive at this time. Because of his findings I did discuss this case with the on-call [facility] hospitalist. They have agreed to evaluate the patient in the emergency department for further management and disposition. Triage Nursing notes reviewed. Prior medical records reviewed Vital Signs: reviewed and remarkable for tachycardia. Differential diagnosis: Viral syndrome, otitis, pharyngitis, pneumonia, influenza, meningitis, urinary tract infection, sepsis, bacteremia, as well as other pathologies. ER treatment provided: See below Diagnostics interpreted by me: ECG: EKG was obtained in the emergency department. My interpretation is normal sinus rhythm at 94 bpm. There is no ectopy. There was no acute ST segment abnormalities noted. Cardiac Monitoring: An order was placed for continuous cardiac monitoring. The monitor shows a rate of 115 bpm with sinus tachycardia rhythm. Laboratory studies: As stated above and show below. Imaging studies: See below Consultation(s): 2039: I discussed this case with Dr. Issa ED COURSE: Procedures: none PDMP:reviewed and no issues Critical Care: I have personally spent greater than 45 minutes of critical care time in the direct management of this patient. This includes bedside care, interpretation of diagnostic studies, and testing, discussion with consultants, patient, and family members, and other required patient management activities. This 45 minutes is in excess of all separately billable procedures. Past Med/Surg History Medical History Abnormal finding on CT scan Hypercalcemia Low back pain Multiple myeloma No known health problems Normocytic anemia Proteinuria Social History Smoking Status: Current every day smoker Tobacco Type: Cigarettes Hx Alcohol Use: No Hx Substance Use: No Preferred Language: Korean Communication Ability: Effective Convention Planner Required: No Beliefs That Will Affect Care: None Current Living Situation: Spouse Feels Safe at Home: Yes Assistive Devices: Glasses Allergies Allergies Allergy/AdvReac Type Severity Reaction Status Date / Time Penicillins Allergy Severe Swelling Verified 07/03/19 20:33 of Lip/Tongue/Throat Home Meds Home Medications Medication Instructions Recorded Confirmed acyclovir 800 mg PO BID 08/15/20 08/15/20 aspirin [Aspirin Low Dose] 81 mg PO DAILY 08/15/20 08/15/20 atropine 4 drp SUBLINGUAL Q4H PRN 08/15/20 08/15/20 chlorhexidine gluconate 15 ml MUCOUS MEMBRANE TID 08/15/20 08/15/20 gabapentin See Rx Instructions .ROUTE .COMPLEX 08/15/20 08/15/20 lorazepam 1 mg PO TID PRN 08/15/20 08/15/20 montelukast See Rx Instructions .ROUTE .COMPLEX 08/15/20 08/15/20 morphine 30 mg PO Q12H 08/15/20 08/15/20 morphine concentrate See Rx Instructions .ROUTE .COMPLEX 08/15/20 08/15/20 omeprazole 20 mg PO DAILY 08/15/20 08/15/20 ondansetron HCl 8 mg PO Q8H PRN 08/15/20 08/15/20 oxycodone 20 mg PO Q4H PRN 08/15/20 08/15/20 polyethylene glycol 3350 17 g PO DAILY 08/15/20 08/15/20 scopolamine base 1 patch TOPICAL [id number] 08/15/20 08/15/20 vitamin E (dl, acetate) 400 unit PO DAILY 08/15/20 08/15/20 Results & Data (ED) Vital Signs Vital Signs - 24 hr 08/15/20 19:03 08/15/20 19:07 08/15/20 19:15 Temperature 37.4 C Temperature Source Oral Pulse Rate 105 H 99 H 103 H Pulse Rate from SpO2 Sensor 100 H 102 H Respiratory Rate 20 18 19 Respiratory Effort / Characteristics Blood Pressure 119/65 Blood Pressure Mean 83 Pulse Oximetry 95 95 93 Oxygen Delivery Method Room Air Room Air Sepsis Recent Fever Within 48 Hours Yes Sepsis New/Unexplained Change in Mental Status N/A Sepsis Action Taken by Nursing No Action Required 08/15/20 19:30 08/15/20 19:44 08/15/20 19:45 Temperature Temperature Source Pulse Rate 94 H Pulse Rate from SpO2 Sensor 94 H 99 H 99 H Respiratory Rate 23 24 23 Respiratory Effort / Characteristics Blood Pressure 117/71 Blood Pressure Mean 78 Pulse Oximetry 95 94 97 Oxygen Delivery Method Room Air Room Air Room Air Sepsis Recent Fever Within 48 Hours Sepsis New/Unexplained Change in Mental Status Sepsis Action Taken by Nursing 08/15/20 20:05 08/15/20 20:07 08/15/20 20:15 Temperature Temperature Source Pulse Rate 87 87 Pulse Rate from SpO2 Sensor 86 Respiratory Rate 22 14 19 Respiratory Effort / Characteristics Non-Labored Spontaneous Blood Pressure Blood Pressure Mean Pulse Oximetry 95 95 97 Oxygen Delivery Method Room Air Room Air Room Air Sepsis Recent Fever Within 48 Hours Sepsis New/Unexplained Change in Mental Status Sepsis Action Taken by Nursing 08/15/20 20:31 08/15/20 20:45 08/15/20 21:00 Temperature Temperature Source Pulse Rate 86 88 100 H Pulse Rate from SpO2 Sensor 86 88 101 H Respiratory Rate 12 15 26 H Respiratory Effort / Characteristics Blood Pressure 129/82 Blood Pressure Mean 101 Pulse Oximetry 95 93 93 Oxygen Delivery Method Room Air Room Air Room Air Sepsis Recent Fever Within 48 Hours Sepsis New/Unexplained Change in Mental Status Sepsis Action Taken by Nursing 08/15/20 21:01 08/15/20 21:15 08/15/20 21:30 Temperature Temperature Source Pulse Rate 99 H 99 H 97 H Pulse Rate from SpO2 Sensor 101 H 98 H 96 H Respiratory Rate 25 H 26 H 25 H Respiratory Effort / Characteristics Blood Pressure 108/61 Blood Pressure Mean 81 Pulse Oximetry 98 96 91 Oxygen Delivery Method Room Air Room Air Room Air Sepsis Recent Fever Within 48 Hours Sepsis New/Unexplained Change in Mental Status Sepsis Action Taken by Nursing 08/15/20 21:31 08/15/20 21:45 08/15/20 22:00 Temperature Temperature Source Pulse Rate 104 H 104 H 110 H Pulse Rate from SpO2 Sensor 107 H 105 H 110 H Respiratory Rate 23 25 H 25 H Respiratory Effort / Characteristics Blood Pressure 125/72 Blood Pressure Mean 91 Pulse Oximetry 91 91 91 Oxygen Delivery Method Room Air Room Air Room Air Sepsis Recent Fever Within 48 Hours Sepsis New/Unexplained Change in Mental Status Sepsis Action Taken by Nursing 08/15/20 22:01 Temperature Temperature Source Pulse Rate 105 H Pulse Rate from SpO2 Sensor 106 H Respiratory Rate 24 Respiratory Effort / Characteristics Blood Pressure Blood Pressure Mean Pulse Oximetry 90 Oxygen Delivery Method Room Air Sepsis Recent Fever Within 48 Hours Sepsis New/Unexplained Change in Mental Status Sepsis Action Taken by Retirement Medications Current Medication List: was personally reviewed by me Laboratory Data Attestation: I reviewed the patient's lab results. Result diagrams: 08/15/20 19:38 08/15/20 19:38 Lab Results 08/15/20 08/15/20 08/15/20 Range/Units 19:38 19:38 19:38 WBC 5.71 (4.8-10.8) K/uL RBC 2.96 L (4.7-6.1) M/uL Hgb 9.0 L (14.0-18.0) g/dL Hct 27.0 L (42-52) % MCV 91.2 (80-100) fL MCH 30.4 (25-34) pg MCHC 33.3 (32-36) g/dL RDW Std Deviation 69.7 H (36.4-46.3) fL RDW Coeff of Silvestre 20.8 H (11.5-14.5) % Plt Count 73 L (130-400) K/uL MPV 9.1 (7.4-10.4) fL Immature Gran % (Auto) 0.4 % Neut % (Auto) 82.6 % Lymph % (Auto) 10.3 % Door % (Auto) 6.5 % Eos % (Auto) 0.2 % Baso % (Auto) 0.0 % Neut # (Auto) 4.72 (1.4-6.5) K/uL Lymph # (Auto) 0.59 L (1.2-3.4) K/uL Door # (Auto) 0.37 (0.11-0.59) K/uL Eos # (Auto) 0.01 (0-0.5) K/uL Baso # (Auto) 0.00 (0-0.2) K/uL Immature Gran # (Auto) 0.02 (0.00-0.02) K/uL Platelet Estimate Decreased L (Normal) Anisocytosis Present PT 12.5 H (9.0-12.0) Seconds INR 1.2 H (0.9-1.1) APTT 33.8 H (21.0-31.0) Seconds PTT Ratio 1.2 Sodium 133 L (136-145) mmol/L Potassium 5.0 (3.5-5.1) mmol/L Chloride 99 (98-107) mmol/L Carbon Dioxide 24 (21-32) mmol/L Anion Gap 10.0 (3-11) BUN 52 H (7-18) mg/dl Creatinine 4.04 H (0.6-1.4) mg/dl Est Cr Clr Drug Dosing 20.7 ml/min Est GFR ( Amer) 18.5 Est GFR (Non-Af Amer) 15.9 BUN/Creatinine Ratio 12.9 (10-20) Glucose 93 (70-99) mg/dl Lactate (0.4-2.0) mmol/L Calcium 9.0 (8.5-10.1) mg/dl Magnesium 2.3 (1.8-2.4) mg/dl Total Bilirubin 0.9 (0.2-1) mg/dl AST 63 H (15-37) U/L ALT 15 (12-78) U/L Alkaline Phosphatase 142 H (45-117) U/L Troponin I < 0.015 (0-0.045) ng/ml Total Protein 6.1 L (6.4-8.2) gm/dl Albumin 2.2 L (3.4-5.0) gm/dl Globulin 3.9 (2.5-4.0) gm/dl Albumin/Globulin Ratio 0.6 L (0.9-2) Procalcitonin (0-0.5) ng/ml Urine Color Urine Appearance (Clear) Urine pH (4.5-7.5) Ur Specific [place] (1.000-1.030) Urine Protein (Negative) Urine Glucose (UA) (Negative) Urine Ketones (Negative) Urine Blood (Negative) Urine Nitrite (Negative) Urine Bilirubin (Negative) Urine Urobilinogen (Negative) Ur Leukocyte Esterase (Negative) Urine WBC (Auto) (0-5) /hpf Urine RBC (Auto) (0-4) /hpf U Hyaline Cast (Auto) (0-5) /lpf U Epithel Cells (Auto) (0-5) /lpf Urine Bacteria (Auto) (Negative) COVID-19 Eval Order SARS-CoV-2, RNA, NAAT (NEGATIVE) 08/15/20 08/15/20 08/15/20 Range/Units 19:38 19:38 20:00 WBC (4.8-10.8) K/uL RBC (4.7-6.1) M/uL Hgb (14.0-18.0) g/dL Hct (42-52) % MCV (80-100) fL MCH (25-34) pg MCHC (32-36) g/dL RDW Std Deviation (36.4-46.3) fL RDW Coeff of Silvestre (11.5-14.5) % Plt Count (130-400) K/uL MPV (7.4-10.4) fL Immature Gran % (Auto) % Neut % (Auto) % Lymph % (Auto) % Door % (Auto) % Eos % (Auto) % Baso % (Auto) % Neut # (Auto) (1.4-6.5) K/uL Lymph # (Auto) (1.2-3.4) K/uL Door # (Auto) (0.11-0.59) K/uL Eos # (Auto) (0-0.5) K/uL Baso # (Auto) (0-0.2) K/uL Immature Gran # (Auto) (0.00-0.02) K/uL Platelet Estimate (Normal) Anisocytosis PT (9.0-12.0) Seconds INR (0.9-1.1) APTT (21.0-31.0) Seconds PTT Ratio Sodium (136-145) mmol/L Potassium (3.5-5.1) mmol/L Chloride (98-107) mmol/L Carbon Dioxide (21-32) mmol/L Anion Gap (3-11) BUN (7-18) mg/dl Creatinine (0.6-1.4) mg/dl Est Cr Clr Drug Dosing ml/min Est GFR ( Amer) Est GFR (Non-Af Amer) BUN/Creatinine Ratio (10-20) Glucose (70-99) mg/dl Lactate 3.2 H* (0.4-2.0) mmol/L Calcium (8.5-10.1) mg/dl Magnesium (1.8-2.4) mg/dl Total Bilirubin (0.2-1) mg/dl AST (15-37) U/L ALT (12-78) U/L Alkaline Phosphatase (45-117) U/L Troponin I (0-0.045) ng/ml Total Protein (6.4-8.2) gm/dl Albumin (3.4-5.0) gm/dl Globulin (2.5-4.0) gm/dl Albumin/Globulin Ratio (0.9-2) Procalcitonin 2.09 H (0-0.5) ng/ml Urine Color Dark Yellow Urine Appearance Clear (Clear) Urine pH 5.0 (4.5-7.5) Ur Specific [place] 1.020 (1.000-1.030) Urine Protein 1+ H (Negative) Urine Glucose (UA) Negative (Negative) Urine Ketones Negative (Negative) Urine Blood 2+ H (Negative) Urine Nitrite Negative (Negative) Urine Bilirubin Negative (Negative) Urine Urobilinogen Negative (Negative) Ur Leukocyte Esterase Negative (Negative) Urine WBC (Auto) 1-5 (0-5) /hpf Urine RBC (Auto) 0-4 (0-4) /hpf U Hyaline Cast (Auto) 1-5 (0-5) /lpf U Epithel Cells (Auto) 5-10 H (0-5) /lpf Urine Bacteria (Auto) Negative (Negative) COVID-19 Eval Order SARS-CoV-2, RNA, NAAT (NEGATIVE) 08/15/20 08/15/20 Range/Units 20:50 20:50 WBC (4.8-10.8) K/uL RBC (4.7-6.1) M/uL Hgb (14.0-18.0) g/dL Hct (42-52) % MCV (80-100) fL MCH (25-34) pg MCHC (32-36) g/dL RDW Std Deviation (36.4-46.3) fL RDW Coeff of Silvestre (11.5-14.5) % Plt Count (130-400) K/uL MPV (7.4-10.4) fL Immature Gran % (Auto) % Neut % (Auto) % Lymph % (Auto) % Door % (Auto) % Eos % (Auto) % Baso % (Auto) % Neut # (Auto) (1.4-6.5) K/uL Lymph # (Auto) (1.2-3.4) K/uL Door # (Auto) (0.11-0.59) K/uL Eos # (Auto) (0-0.5) K/uL Baso # (Auto) (0-0.2) K/uL Immature Gran # (Auto) (0.00-0.02) K/uL Platelet Estimate (Normal) Anisocytosis PT (9.0-12.0) Seconds INR (0.9-1.1) APTT (21.0-31.0) Seconds PTT Ratio Sodium (136-145) mmol/L Potassium (3.5-5.1) mmol/L Chloride (98-107) mmol/L Carbon Dioxide (21-32) mmol/L Anion Gap (3-11) BUN (7-18) mg/dl Creatinine (0.6-1.4) mg/dl Est Cr Clr Drug Dosing ml/min Est GFR ( Amer) Est GFR (Non-Af Amer) BUN/Creatinine Ratio (10-20) Glucose (70-99) mg/dl Lactate (0.4-2.0) mmol/L Calcium (8.5-10.1) mg/dl Magnesium (1.8-2.4) mg/dl Total Bilirubin (0.2-1) mg/dl AST (15-37) U/L ALT (12-78) U/L Alkaline Phosphatase (45-117) U/L Troponin I (0-0.045) ng/ml Total Protein (6.4-8.2) gm/dl Albumin (3.4-5.0) gm/dl Globulin (2.5-4.0) gm/dl Albumin/Globulin Ratio (0.9-2) Procalcitonin (0-0.5) ng/ml Urine Color Urine Appearance (Clear) Urine pH (4.5-7.5) Ur Specific [place] (1.000-1.030) Urine Protein (Negative) Urine Glucose (UA) (Negative) Urine Ketones (Negative) Urine Blood (Negative) Urine Nitrite (Negative) Urine Bilirubin (Negative) Urine Urobilinogen (Negative) Ur Leukocyte Esterase (Negative) Urine WBC (Auto) (0-5) /hpf Urine RBC (Auto) (0-4) /hpf U Hyaline Cast (Auto) (0-5) /lpf U Epithel Cells (Auto) (0-5) /lpf Urine Bacteria (Auto) (Negative) COVID[facility]19 [facility] SARS-[facility]-2, RNA, NAAT POSITIVE A* (NEGATIVE) Administered Medications Vancomycin HCl 1,500 mg/ (Sodium Chloride) 530 mls @ 200 mls/hr IV NOW ONE Stop: 08/15/20 23:06 Last Admin: 08/15/20 20:57 Dose: 200 mls/hr Documented by: [id number] Discontinued Medications Dexamethasone (Dexamethasone Sod Inj 10 Mg/Ml Vial) 10 mg IV NOW ONE Stop: 08/15/20 20:29 Last Admin: 08/15/20 21:43 Dose: 10 mg Documented by: [id number] Sodium Chloride (Nss 1000ml) 1,000 mls @ 999 mls/hr IV .Q1H1M ONE Stop: 08/15/20 19:53 Last Infusion: 08/15/20 21:43 Dose: 0 mls/hr Documented by: [id number] Admin: 08/15/20 20:00 Dose: 999 mls/hr Documented by: [id number] Ceftriaxone Sodium (Rocephin) 1,000 mg in 50 mls @ 100 mls/hr IV NOW STA Stop: 08/15/20 19:22 Last Infusion: 08/15/20 20:58 Dose: 0 mls/hr Documented by: [id number] Admin: 08/15/20 20:04 Dose: 100 mls/hr Documented by: [id number] Sodium Chloride (Nss 1000ml) 1,000 mls @ 999 mls/hr IV .Q1H1M ONE Stop: 08/15/20 21:18 Last Admin: 08/15/20 21:43 Dose: 999 mls/hr Documented by: [id number] Scopolamine (Scopolamine 1.5 Mg Tdsy) 1.5 mg TD ONE ONE Stop: 08/15/20 21:03 Last Admin: 08/15/20 21:43 Dose: 1.5 mg Documented by: [id number] Imaging Data Radiologist's Impression: Patient: SILVIA CAMILO JRAdmit Date: 08/15/20MR#: [id number]: [address] [facility]ITAL[facility]ct ID:[id number]: [facility]: 1970[facility] Zip: [place] [id number]: 50Location: EDSex: MRoom/Bed:Att Phy:Diagnosis: LETHARGICPri Phy: Ada Cedillo CRNPService Date: 08/15/20[facility] Phy:Interpreting Phy: Red Braswell MDAdmit Phy: Ordering Phy: Gwyn Retana DO cc: ~ XR chest 1V portable HISTORY: SEPSIS COMPARISON: None. FINDINGS: No pneumothorax. No pleural effusions. The heart is mildly enlarged. Mild perihilar interstitial thickening. There are multifocal airspace opacities within the bilateral mid to lower lung zones. This favors a multifocal pneumonia. IMPRESSION: Multifocal airspace opacities within the bilateral mid to lower lung zones. This favors a multifocal pneumonia. ACT 112: Negative or not required by law. Electronically signed by: Red Braswell M.D. 08/15/2020 7:11 PM Dictated: 08/15/[id number]: 08/15/201909 Blood Pressure Blood Pressure Findings: Normal blood pressure Discharge Plan Visit Data Chief Complaint: Illness Stated Complaint: LETHARGIC ED Provider: Gwyn Retana Discharge Problem: Acute renal failure, Acute urinary retention, Pneumonia, COVID-19 virus infection Forms Stand Alone Forms: [facility] [employer] Prescriptions Prescriptions: No Action gabapentin 600 mg tablet See Rx Instructions .ROUTE .COMPLEX RF: 0 morphine 30 mg tablet extended release 30 mg PO Q12H RF: 0 acyclovir 800 mg tablet 800 mg PO BID RF: 0 oxycodone 20 mg tablet 20 mg PO Q4H PRN (Reason: Breakthrough Pain) RF: 0 morphine concentrate 100 mg/5 mL (20 mg/mL) solution See Rx Instructions .ROUTE .COMPLEX RF: 0 ondansetron HCl 8 mg tablet 8 mg PO Q8H PRN (Reason: Nausea) RF: 0 lorazepam 1 mg tablet 1 mg PO TID PRN (Reason: Anxiety or Agitation) RF: 0 scopolamine base 1 mg over 3 days patch 3 day 1 patch topical [id number] RF: 0 atropine 1 % drops 4 drp sublingual Q4H PRN (Reason: Secretions) RF: 0 aspirin [Aspirin Low Dose] 81 mg Tablet,Delayed Release (Dr/Ec) 81 mg PO DAILY RF: 0 omeprazole 20 mg Capsule,Delayed Release(Dr/Ec) 20 mg PO DAILY RF: 0 montelukast 10 mg tablet See Rx Instructions .ROUTE .COMPLEX RF: 0 polyethylene glycol 3350 17 gram/dose Powder 17 g PO DAILY RF: 0 chlorhexidine gluconate 0.12 % mouthwash 15 ml mucous membrane TID RF: 0 vitamin E (dl, acetate) 400 unit capsule 400 unit PO DAILY RF: 0 Discharge Problem: Acute renal failure Qualifiers: Acute renal failure type: unspecified Qualified Code(s): N17.9 - Acute kidney failure, unspecified Pneumonia Qualifiers: Pneumonia type: due to unspecified organism Laterality: bilateral Lung location: unspecified part of lung Qualified Code(s): J18.9 - Pneumonia, unspecified organism
[2020-08-15 20:40] LABS: Appearance Urine Clear (Clear); Bacteria Urine Automated Negative (Negative); Bilirubin Urine Negative (Negative); Blood Urine 2+ (Negative); Color Urine Dark Yellow; Glucose Urine UA Negative (Negative); Ketones Urine Negative (Negative); Leukocyte Esterase Urine Negative (Negative); Nitrite Urine Negative (Negative); Protein Urine 1+ (Negative); RBC Urine Automated 0-4 /hpf (0-4); Urobilinogen Urine Negative (Negative)
[2020-08-15 20:58] LABS: Mean Corpuscular Hemoglobin 30.4 pg (25-34); Mean Corpuscular Hgb Conc 33.3 g/dL (32-36); Mean Corpuscular Volume 91.2 fL (80-100); Mean Platelet Volume 9.1 fL (7.4-10.4); Platelet Count 73 K/uL (130-400); RDW Coefficient of Variation 20.8 % (11.5-14.5); RDW Standard Deviation 69.7 fL (36.4-46.3); Red Blood Count 2.96 M/uL (4.7-6.1); White Blood Count 5.71 K/uL (4.8-10.8)
[2020-08-15 21:00] LABS: Anisocytosis Present; Eosinophils # (auto) 0.01 K/uL (0-0.5); Eosinophils % (auto) 0.2 %; Immature Granulocytes # (auto) 0.02 K/uL (0.00-0.02); Immature Granulocytes % (auto) 0.4 %; Lymphocytes # (auto) 0.59 K/uL (1.2-3.4); Lymphocytes % (auto) 10.3 %; Monocytes # (auto) 0.37 K/uL (0.11-0.59); Monocytes % (auto) 6.5 %; Neutrophils # (auto) 4.72 K/uL (1.4-6.5); Neutrophils % (auto) 82.6 %; Platelet Estimate Decreased (Normal)
[2020-08-15] MEDS ORDERED: SCOPOLAMINE 1.5 MG TDSY TD ONE (21:02)
[2020-08-16] MEDS ORDERED: CHECK SCOPOLAMINE PATCH PLACEMENT SCH
[2020-08-16] MEDS ORDERED: NITROGLYCERIN SL 0.4 MG/TAB TAB SL PRN (00:59)
[2020-08-16] MEDS ORDERED: MONTELUKAST SODIUM 10 MG TABLET PO SCH (00:59)
[2020-08-16] MEDS ORDERED: POLYETHYLENE (MIRALAX) 17 GM PACK PO PRN (00:59)
[2020-08-16] MEDS ORDERED: HYDROmorphone INJ 0.5 MG/0.5 ML SYR IV PRN (00:59)
[2020-08-16] MEDS ORDERED: ACETAMINOPHEN 325 MG TAB PO PRN (00:59)
[2020-08-16] MEDS ORDERED: LORazepam 1 MG TAB PO PRN (01:05)
--- NOTE | 2020-08-16 01:06 | History and Physical Report ---
DATE OF ADMISSION: 08/15/2020 CHIEF COMPLAINT: Weakness and cough. HISTORY OF PRESENT ILLNESS: This is a 50-year-old male with past medical history significant for multiple myeloma, not achieved remission, history of autologous stem cell transplantation, currently on palliative care, history of hypercalcemia of malignancy, compression fracture of T11, trigeminal neuralgia, cancer related pain, history of encephalopathy. The patient recently was diagnosed with COVID-19 pneumonia and was admitted in the [facility] [address] and was treated with remdesivir and Decadron and he wanted to continue with chemotherapy and there was plan to discuss about it 3 weeks after recovering from COVID-19 infection that was supposed to be on 08/14/2020. The patient at that time in [place] he was treated with Levaquin and vancomycin. He was found to be platelets decreased to 66,000. His pain medication MS Contin at this time given his hypotension was decreased from 60 mg to 30 mg twice daily and palliative care was following. At that time he did not want hospice care, . As per [facility] called today , the patient having weakness and cough and as per the [facility], she reported that his weakness is much worse than last Thursday, unable to get out of bed at this time. Incontinent bladder, no bowel movements since last Thursday. reported confusion and not responding at times. As per the home health nurse visit, there is a POLST completed today with DNR wishes, but was brought to the hospital for any treatable cause. In the hospital, he was found to have hemoglobin of 9, urinary retention with Grover catheter draining some blood in the urine and creatinine was 4. His baseline creatine was 0.8 recently and lactate was initial 3.2, repeat was 2.7. Procalcitonin 2, NARAYAN-CoV-2 was still positive. Chest x-ray, multifocal pneumonia. Currently, the patient is alert and oriented to name and place. He says he has some cough, states some abdominal pain, not able to urinate, constipated and not eating and drinking much. Denies any chest pain. Denies any fever, denies any headache, no blurred vision, no earache, no runny nose, no sore throat. States he has some abdominal discomfort. He says he is not ambulating. His hemodynamics are okay in the ER. ALLERGIES: PENICILLINS. PAST MEDICAL HISTORY: As mentioned above. PAST SURGICAL HISTORY: Amputation of the left thumb, colonoscopy, removal of tonsils. MEDICATIONS: The patient is on Atropine drops as needed, Ativan 1 mg p.o. t.i.d. p.r.n., morphine sulfate 0.5 mL p.o. every hour p.r.n., scopolamine 1 patch topical on skin every 3 days, gabapentin 900 mg in a.m. and 600 mg in the afternoon and 900 mg at night, Magic Swizzle 30 mL 2 times a day, vitamin E 400 units p.o. daily, oxycodone 20 mg p.o. q. 4 hours p.r.n., morphine sulfate ER 30 mg p.o. b.i.d., Singulair 10 mg p.o. daily, Chlorhexidine swish and spit 15 mL 3 times a day, Zofran 8 mg p.o. q. 8 hours p.r.n., acyclovir 800 mg p.o. b.i.d., MiraLax 17 grams p.o. daily, omeprazole 20 mg p.o. daily, aspirin 81 mg p.o. daily. FAMILY HISTORY: Significant for father had kidney disease and Mu's disease. SOCIAL HISTORY: Former smoker, quit in 1989. No alcohol use, no drug use. . REVIEW OF SYMPTOMS: As per HPI. Rest of review of systems negative. PHYSICAL EXAMINATION: GENERAL: The patient is thin and frail, not in acute distress. VITAL SIGNS: Temperature 37.4, pulse 98, respiratory rate 18, blood pressure 109/63, oxygen 94% on 3 liters. HEENT: Pupils equal, round, and reactive to light. Oral mucosa dry. NECK: No JVD, no neck masses. CARDIOVASCULAR: S1, S2 heard, regular rate and rhythm, no murmur, no gallop. RESPIRATORY SYSTEM: Normal AP diameter. No accessory muscle use. No wheezing, no crackles. ABDOMEN: Soft, bowel sounds present, nontender. No distention. CENTRAL NERVOUS SYSTEM: Cranial nerves II-XII grossly intact, nonfocal. EXTREMITIES: Bilateral lower extremity pedal edema present, no erythema seen. LABORATORY DATA: WBC 5.7, hemoglobin 9, hematocrit 27, platelets 73. PT 12.5, INR 1.2, APTT 33.8. Sodium 133, potassium 5, chloride 99, bicarbonate 24, BUN 52, creatinine 4.04, serum glucose 93. Lactate 3.2, repeat 2.7, calcium 9, magnesium 2.6, total bilirubin 0.9, AST 16, ALT 15, alkaline phosphatase 1.2. Troponin I less than 0.015. Urinalysis negative. SARS-CoV-2 RNA positive. IMAGING: Chest x-ray, multifocal airspace opacities within the bilateral mid to lower lung zones, this favors multifocal pneumonia. EKG: Normal sinus rhythm, rate of 94, no significant change was found. ASSESSMENT AND PLAN: This is a 50-year-old male who was diagnosed with history of multiple myeloma, not in remission, recent diagnosis of COVID-19 pneumonia, comes back with weakness and shortness of breath and cough. 1. Weakness, shortness of breath and cough,recently diagnosed with COVID pneumonia and was treated with remdesivir and Decadron in [place] . supposed to be three weeks from covid on 2020.Has pneumonia on chest x- ray and covid 19 today still positive. ER empirically started on vancomycin . Will add Levaquin. Follow the cultures. Monitor. 2. Acute kidney injury. Creatinine of 4, his recent creatinine in [facility] [address] was 0.8. Has abdominal pain and some hematuria. BUN is also elevated, possibly prerenal. We will give IV fluids. We will get CAT scan of the abdomen and pelvis without contrast. Consult nephrology in a.m. We will follow the repeat labs. Initial lactate 3.2, repeat is 2.7. He is getting antibiotics as above and we will follow the repeat labs. 3. History of hypercalcemia, his calcium is normal at 9. 4. History of multiple myeloma, status post stem cell autologous transplantation not in remission. There is plan to start chemo after 3 weeks of COVID on 08/14/2020 presented to ER currently. As per the [facility] today signed POLST form and wanted to be comfortable and DNR.. 5. Chronic cancer pain. Recently, his MS Contin was cut down to 30mg bid. We will currently hold all his p.o. pain medication. The patient is somewhat confused mostly encephalopathy from his acute kidney injury and ongoing illness. We will place him on IV Dilaudid p.r.n. Continue scopolamine patch and gabapentin for now. 6. Hematuria. Holding his aspirin. Follow the CT abdomen and pelvis. Consult urology in the a.m. for further care. Currently, hemoglobin stable at 9. Follow the labs in a.m. 7. Deep venous thrombosis prophylaxis, sequential compression devices. 8. Disposition closely monitor in medical floor. DNR as per my discussion with . WHITNEY
[2020-08-16] MEDS ORDERED: ATROPINE SULFATE 1% OP SOLN 5 ML BTL SL PRN (01:12)
[2020-08-16] MEDS: SODIUM CHLORIDE 0.9% 1000ML 1,000 ML IV SCH ×2 (02:05→10:16)
[2020-08-16] MEDS: CHECK SCOPOLAMINE PATCH PLACEMENT SCH ×4 (03:49→23:24)
[2020-08-16 05:54] LABS: Hematocrit (blood only) 24.4 % (42-52); Hemoglobin 8.1 g/dL (14.0-18.0); Mean Corpuscular Hemoglobin 30.2 pg (25-34); Mean Corpuscular Hgb Conc 33.2 g/dL (32-36); RDW Coefficient of Variation 20.9 % (11.5-14.5); RDW Standard Deviation 69.5 fL (36.4-46.3); Red Blood Count 2.68 M/uL (4.7-6.1); White Blood Count 3.76 K/uL (4.8-10.8)
[2020-08-16 05:56] LABS: Mean Platelet Volume 9.2 fL (7.4-10.4); Platelet Count 50 K/uL (130-400)
[2020-08-16 06:19] LABS: Anisocytosis Present; Immature Granulocytes # (auto) 0.01 K/uL (0.00-0.02); Immature Granulocytes % (auto) 0.3 %; Lymphocytes # (auto) 0.35 K/uL (1.2-3.4); Lymphocytes % (auto) 9.3 %; Monocytes # (auto) 0.07 K/uL (0.11-0.59); Monocytes % (auto) 1.9 %; Neutrophils # (auto) 3.33 K/uL (1.4-6.5); Neutrophils % (auto) 88.5 %
[2020-08-16 06:30] LABS: BUN Creatinine Ratio 17.8 (10-20); Calcium 7.8 mg/dl (8.5-10.1); Est GFR (African American) 26.9; Est GFR (Non-African American) 23.2; Magnesium 2.4 mg/dl (1.8-2.4); Potassium 4.8 mmol/L (3.5-5.1)
--- NOTE | 2020-08-16 07:59 | CT Scan Report ---
CT SCAN OF THE ABDOMEN AND PELVIS WITHOUT CONTRAST CLINICAL HISTORY: Acute renal insufficiency, multiple myeloma, hematuria. COMPARISON STUDY: 07/03/2019 TECHNIQUE: CT scan of the abdomen and pelvis was performed from the lung bases to the proximal femurs . Images are reviewed in the axial, sagittal, and coronal planes. IV contrast was not administered fo r this examination. A dose lowering technique was utilized adhering to the principles of ALARA. CT DOSE: 448.45 mGycm FINDINGS: Lower chest: The heart is mildly enlarged. There is a small pericardial effusion. There are small lucía ateral pleural effusions left larger than right. There are bilateral lower lobe airspace opacities, a telectasis versus pneumonia. Liver: The unenhanced liver is normal in size, contour, and attenuation. There is no intrahepatic lucía iary ductal dilatation. Gallbladder: Cholelithiasis Spleen: Normal in size and attenuation. Pancreas: Unremarkable. Adrenal glands: There is soft tissue nodules adjacent to both adrenal glands. These are likely extrin sic. Kidneys: There is a punctate nonobstructing lower pole right renal calculus. There is bilateral hydro nephrosis more severe on the left. There is a suspected mass/hemorrhage involving the left renal pelv is and proximal left ureter. There is left periureteral stranding. Bowel: There are no transition zones indicate bowel obstruction. There is no evidence of acute divert iculitis. There is no evidence of acute appendicitis. Peritoneum: There is minimal peritoneal fluid. There is no free intraperitoneal air. Vasculature: The abdominal aorta is normal in course and caliber. Adenopathy: None. Pelvic viscera: There is a joint Grover catheter. There is a left pelvic sidewall mass measuring 38 mm . There is a suspected mass contiguous or involving the right lateral wall the bladder. Skeletal structures: The bones are diffusely abnormal consistent with the clinical history of multipl e myeloma. There is a small soft tissue mass associated with the right sixth rib anterolaterally. IMPRESSION: 1. Bilateral pleural effusions with lower lobe atelectasis/consolidation 2. No evidence of bowel obstruction. No evidence of free air 3. Cholelithiasis 4. Bilateral hydronephrosis left more severe than right 5. Mass/hemorrhage involving the left renal pelvis and proximal left ureter with increased density le ft ureter possibly representing hemorrhage. There is infiltration of perivesical fat 6. Interval development of presumed metastatic disease/lymphoma with new bilateral soft tissue nodule s adjacent to each adrenal gland, a new left pelvic sidewall mass, as well as a new mass abutting or involving the right lateral wall the bladder. These findings will be called to the floor as these wer e not described in the preliminary report. 7. Diffuse bone abnormalities consistent with the history of myeloma ACT 112: Negative or not required by law. Electronically signed by: Denver Fink M.D. 08/16/2020 7:58 AM
--- NOTE | 2020-08-16 08:56 | Pharmacy Report ---
Pharmacy Abx Dose Short Note - Date of Service August 16, 2020 - Assessment & Plan Assessment 50 year old with PMHx significant for multiple myeloma, hx of stem cell transplantation, currently on palliative care, hx of hypercalcemia of malignancy, encephalopathy. Recently dx with COVID 19 pneumonia and was admitted at [facility] and received remdesivir/decadron. Was supposed to be resuming chemo 08/14/20. Was given vanco/lvq at [facility]. Started empirically on vancomycin and levaquin on admission. Blood cultures pending. Plan Vancomycin * Given loading dose of vancomycin 1500 mg (~22 mg/kg) x 1 last evening * Significant ASHLEY on admission, 4.04 mg/dL Scr now trending down to 2.96 mg/dl this AM. Plan to obtain a random level today to assist with further dosing * Random level this AM ~14.4 mcg/ml (goal 15-20 mcg/ml for pneumonia) ; plan to redose with vancomycin 1000 mg x 1 (~15 mg/kg) to maintain an estimated peak of ~30mcg/ml * Plan to order another random level in the AM to assist with further dosing and d/t changing renal function Levaquin * 750 mg iv q 48 hrs - appropriate for crcl 20-49 ml/min Pharmacy will continue to follow and will adjust dose/frequency as necessary. Thank you.
[2020-08-16] MEDS ORDERED: levoFLOXacin/D5W 750 MG/150 ML BAG IV SCH (09:00)
--- NOTE | 2020-08-16 09:15 | Nephrology Consultation ---
Date of Consultation August 16, 2020 Assessment & Plan (1) Acute renal failure: Nonoliguric stage III acute renal failure with baseline creatinine 0.9 and presenting creatinine 4, downtrending this morning to 3. Component of obstructive uropathy plus or minus ATN in setting of pneumonia, hypotension due not only to infection but to pain medication. Serum chemistries are for now acceptable; volume status challenging but would give lasix only if respiratorystatus worsening -daily bmp -avoid nephrotoxins -trend hgb Present on Admission?: Yes (2) Renal hemorrhage, left: Await urology input; monitor hemoglobin; may require tertiary center care if active RP bleed per urology; trend hgb per urology; else irrigate catheter >noted that repeat hgb not ordered as of 1800 >> order placed and coordinated w/ Dr Cisse Present on Admission?: Yes (3) Hydronephrosis: Antony catheter in place, await urology input Present on Admission?: Yes (4) Multiple lesions of metastatic malignancy: New findings of presumed metastatic disease/lymphoma in the bladder, bilateral adrenal glands, left pelvic sidewall -palliative care consult (5) Pneumonia: on vancomycin and levaquin >pls dose vanco by level Present on Admission?: Yes (6) Acute respiratory failure: on 5L 02nc currently; use diuretics as indicated to maintain 02 sats Present on Admission?: Yes History of Present Illness Reason for Consultation: Acute renal failure Requesting Physician: Dr. Issa Attending Physician: Jesse Cisse MD History of Present Illness 50-year-old male whom I am asked to evaluate for acute renal failure after he was admitted overnight for management of post Covid pneumonia after he presented with weakness shortness of breath and cough. Past medical history includes multiple myeloma not in remission and status post tallest stem cell transplantation currently on palliative care, trigeminal neuralgia, hypercalcemia of malignancy, compression fracture T11. Patient was recently admitted to [facility] August 01 for Covid pneumonia treated with Decadron and remdesivir creatinine 0.6. Peak creatinine was at admission at 1.1 with presenting calcium 13.4. Baseline creatinine 0.9-1.0 and chronic issues with hypercalcemia in July, with uncorrected calcium running generally mid tens to low 11's. The patient's became concerned when he was unable to get out of bed with no bowel movements for 4 days and new bladder incontinence. Although he is DNR with palliative following, there had been consideration of attempting further chemotherapy after recovery from the virus. Noted on presentation here to have multifocal pneumonia on chest x-ray with presenting creatinine 4.0, initial lactate 3.2 downtrending Allergies Allergy/AdvReac Type Severity Reaction Status Date / Time Penicillins Allergy Severe Swelling Verified 08/15/20 22:11 of Lip/Tongue/Throat Home Medications Medication Instructions Recorded Confirmed Type acyclovir 800 mg PO BID 08/15/20 08/15/20 History aspirin [Aspirin Low Dose] 81 mg PO DAILY 08/15/20 08/15/20 History atropine 4 drp SUBLINGUAL Q4H PRN 08/15/20 08/15/20 History chlorhexidine gluconate 15 ml MUCOUS MEMBRANE TID 08/15/20 08/15/20 History gabapentin See Rx Instructions .ROUTE .COMPLEX 08/15/20 08/15/20 History lorazepam 1 mg PO TID PRN 08/15/20 08/15/20 History montelukast See Rx Instructions .ROUTE .COMPLEX 08/15/20 08/15/20 History morphine 30 mg PO Q12H 08/15/20 08/15/20 History morphine concentrate See Rx Instructions .ROUTE .COMPLEX 08/15/20 08/15/20 History omeprazole 20 mg PO DAILY 08/15/20 08/15/20 History ondansetron HCl 8 mg PO Q8H PRN 08/15/20 08/15/20 History oxycodone 20 mg PO Q4H PRN 08/15/20 08/15/20 History polyethylene glycol 3350 17 g PO DAILY 08/15/20 08/15/20 History scopolamine base 1 patch TOPICAL [id number] 08/15/20 08/15/20 History vitamin E (dl, acetate) 400 unit PO DAILY 08/15/20 08/15/20 History Patient History Medical History Abnormal finding on CT scan Hypercalcemia Low back pain Multiple myeloma Proteinuria Surgical History H/O stem cell transplant Family History Father Kidney disease Social History Smoking Status: Never smoker Tobacco Type: Cigarettes Second Hand Exposure: No; Do You Dip or Chew Tobacco: No; Tobacco Cessation Education Requested by Patient: No Hx Alcohol Use: No Hx Substance Use: No Preferred Language: Bulgarian Communication Ability: Effective Lifts And Cranes Inspector Required: No Beliefs That Will Affect Care: None Current Living Situation: Spouse Feels Safe at Home: Yes Safety Concerns: Feels Safe At This Time Assistive Devices: Oxygen - Continuous Review of Systems Review of Systems: Unobtainable due to cognitive status Physical Exam Constitutional: well developed, + ill appearing and + cachectic very confused > states "I have a conspiracy theory about my health," can't understand ok to void if feels urge since has antony even when I show him antony Eyes: EOM intact bilaterally ENMT: Ears: no external ear abnormality Nose: no external nose abnormality Mouth: + dry oral mucous membranes Neck: no nuchal rigidity Respiratory: normal respiratory effort Auscultation: lungs clear to auscultation bilaterally and + diminished lung sounds lying flat on RA Cardiovascular: Rate/Rhythm: regular rate and regular rhythm Extremities: no edema Gastrointestinal (Abdomen): Inspection/Auscultation: normal bowel sounds Percussion/Palpation: abdomen soft; abdomen nontender Musculoskeletal: Extremities: + abnormal strength (generalized weakness) Skin: no rashes, warm and dry Neurologic: pulido, fluent speech, no tremor, oriented to self and place but confused Genitourinary: antony w/ lots of gross blood and no obvious clot Results & Data ([facility]) Vital Signs (Past 12 Hours) Vital Signs Temp Pulse Pulse Resp BP BP Pulse Ox 08/16/20 06:40 90 16 101/61 96 08/16/20 06:28 72 96 08/16/20 05:20 88 18 95 08/16/20 04:00 95/54 L 08/16/20 03:58 85/55 L 08/16/20 03:57 37.0 C 86 18 97/54 L 93 08/16/20 03:27 95 H 95 08/16/20 02:06 87 18 96 08/16/20 01:04 37.2 C 90 14 111/69 94 08/16/20 00:15 89 18 97 08/16/20 00:10 89 18 98/61 L 97 08/16/20 00:00 91 H 16 95 08/15/20 23:45 92 H 18 96 08/15/20 23:31 95 H 16 95 08/15/20 23:30 98 H 17 108/60 95 08/15/20 23:15 100 H 20 98 08/15/20 23:01 98 H 17 96 08/15/20 23:00 97 H 18 110/64 97 08/15/20 22:45 112 H 23 97 08/15/20 22:31 98 H 18 94 08/15/20 22:30 99 H 19 109/63 94 08/15/20 22:15 103 H 22 89 L 08/15/20 22:01 105 H 24 90 08/15/20 22:00 110 H 25 H 125/72 91 08/15/20 21:45 104 H 25 H 91 08/15/20 21:31 104 H 23 91 08/15/20 21:30 97 H 25 H 108/61 91 08/15/20 21:15 99 H 26 H 96 Laboratory Results 08/16/20 05:20 08/16/20 05:20 Admission urinalysis: Specific gravity 1021+ dipstick protein, 2+ dipstick bloo d; other indices bland Diagnostic Findings CT abdomen pelvis noncontrast at admission 1. Bilateral pleural effusions with lower lobe atelectasis/consolidation 2. No evidence of bowel obstruction. No evidence of free air 3. Cholelithiasis 4. Bilateral hydronephrosis left more severe than right 5. Mass/hemorrhage involving the left renal pelvis and proximal left ureter with increased density left ureter possibly representing hemorrhage. There is inf iltration of perivesical fat 6. Interval development of presumed metastatic disease/lymphoma with new bilateral soft tissue nodules adjacent to each adrenal gland, a new left pelvic sidewall mass, as well as a new mass abutting or involving the right lateral wall the bladder. These findings will be called to the floor as these were not described in the preliminary report. 7. Diffuse bone abnormalities consistent with the history of myeloma Admission chest x-ray Multifocal airspace opacities within the bilateral mid to lower lung zones. This favors a multifocal pneumonia. (1) Hydronephrosis Hydronephrosis type: unspecified Qualified Code(s): N13.30 - Unspecified hy dronephrosis (2) Acute renal failure Acute renal failure type: unspecified Qualified Code(s): N17.9 - Acute kidney failure, unspecified (3) Acute respiratory failure Respiratory failure complication: hypoxia Qualified Code(s): J96.01 - Acute respiratory failure with hypoxia (4) Pneumonia Laterality: bilateral Lung location: unspecified part of lung Pneumonia type: due to unspecified organism Qualified Code(s): J18.9 - Pneumonia, unspecified organism
[2020-08-16] MEDS: POLYETHYLENE (MIRALAX) 17 GM PACK PO SCH (10:20)
[2020-08-16] MEDS: GABAPENTIN 600 MG TAB PO SCH ×3 (10:25→22:04)
[2020-08-16] MEDS: CHLORHEXIDINE GLUCONATE 0.12% 480 ML MT SCH ×3 (10:27→22:05)
[2020-08-16] MEDS: PANTOprazole 40 MG TAB PO SCH (10:29)
[2020-08-16] MEDS: ACYCLOVIR 400 MG TAB PO SCH ×2 (10:30→22:04)
[2020-08-16] MEDS: TOCOPHERYL, DL-ALPHA 400 UNITS CAP PO SCH (10:30)
--- NOTE | 2020-08-16 11:59 | Urology Consultation ---
Date of Consultation August 16, 2020 Assessment & Plan (1) Acute urinary retention: (2) Hematuria: (3) Multiple lesions of metastatic malignancy: (4) Hydronephrosis: (5) Acute renal failure: (6) Renal hemorrhage, left: Continue Grover catheter and irrigate as needed Available if catheter becomes clotted or does not drain. History of Present Illness Reason for Consultation: Gross hematuria Attending Physician: Jesse Cisse MD History of Present Illness 50-year-old male with unfortunate history of multiple myeloma and possibly lymphoma who apparently developed Covid was treated placed in hospice but sent to the emergency room by the hospice nurse because there was a consideration of a treatable condition. CT scan was performed which showed infiltration of the left renal pelvic sinus with either blood or mass and a mass extrinsic to the bladder on the right side possibly invading into the bladder. Discussed with radiology who felt that this was not an intrinsic bladder mass. Patient also had a creatinine of 4 and a catheter placed not clear what his residual was. Urinalysis showed minimal red blood cells. Not clear if there was blood in the urine prior to the catheter placement. His creatinine has declined since the catheter went in. Do not feel that there is any urgent need at this time for urologic intervention based on the minimal amount of blood in the Grover at this time it is a light pink to almost clear. Spoke with Dr. Cisse who states that the patient is a DNR and on hospice and will likely be going home later today or tomorrow. I had ordered a follow-up hematocrit which I cancel there is a CBC for the morning. If the patient were to have had a retroperitoneal bleed would need follow-up with repeat CT and possible transfer for percutaneous treatment of the bleed but at this state is not clear that he is bleeding. Baseline hematocrit on admission was 27 and went down slightly with hydration to 24.4. Patient groggy and difficult to get a history from. Will be available if further needed. Told the nurses to irrigate the catheter on as needed blade basis but no clots seen in the catheter or the bladder on CT. Patient denied any pain Allergies Allergy/AdvReac Type Severity Reaction Status Date / Time Penicillins Allergy Severe Swelling Verified 08/15/20 22:11 of Lip/Tongue/Throat Home Medications Medication Instructions Recorded Confirmed Type acyclovir 800 mg PO BID 08/15/20 08/15/20 History aspirin [Aspirin Low Dose] 81 mg PO DAILY 08/15/20 08/15/20 History atropine 4 drp SUBLINGUAL Q4H PRN 08/15/20 08/15/20 History chlorhexidine gluconate 15 ml MUCOUS MEMBRANE TID 08/15/20 08/15/20 History gabapentin See Rx Instructions .ROUTE .COMPLEX 08/15/20 08/15/20 History lorazepam 1 mg PO TID PRN 08/15/20 08/15/20 History montelukast See Rx Instructions .ROUTE .COMPLEX 08/15/20 08/15/20 History morphine 30 mg PO Q12H 08/15/20 08/15/20 History morphine concentrate See Rx Instructions .ROUTE .COMPLEX 08/15/20 08/15/20 History omeprazole 20 mg PO DAILY 08/15/20 08/15/20 History ondansetron HCl 8 mg PO Q8H PRN 08/15/20 08/15/20 History oxycodone 20 mg PO Q4H PRN 08/15/20 08/15/20 History polyethylene glycol 3350 17 g PO DAILY 08/15/20 08/15/20 History scopolamine base 1 patch TOPICAL [id number] 08/15/20 08/15/20 History vitamin E (dl, acetate) 400 unit PO DAILY 08/15/20 08/15/20 History Patient History Medical History Abnormal finding on CT scan Hypercalcemia Low back pain Multiple myeloma Proteinuria Surgical History H/O stem cell transplant Family History Father Kidney disease Social History Smoking Status: Never smoker Tobacco Type: Cigarettes Second Hand Exposure: No; Do You Dip or Chew Tobacco: No; Tobacco Cessation Education Requested by Patient: No Hx Alcohol Use: No Hx Substance Use: No Preferred Language: Romansh Communication Ability: Effective Md Urologist Required: No Beliefs That Will Affect Care: None Current Living Situation: Spouse Feels Safe at Home: Yes Safety Concerns: Feels Safe At This Time Assistive Devices: Oxygen - Continuous Review of Systems Review of Systems: Unobtainable due to cognitive status Physical Exam Constitutional: + ill appearing, + frail appearing and + lethargic Neck: trachea midline, no thyromegaly Respiratory: + labored breathing Cardiovascular: Extremities: no edema Neurologic: + confused Speech / Cognition: + abnormal cognition Psychiatric: Orientation: oriented to place Genitourinary: Grover catheter in place draining light pink to slightly brown urine without any clots Results & Data ([facility]) Vital Signs (Past 12 Hours) Vital Signs Temp Pulse Pulse Resp BP BP Pulse Ox 08/16/20 08:10 36.5 C 91 H 16 93/54 L 92 08/16/20 06:40 90 16 101/61 96 08/16/20 06:28 72 96 08/16/20 05:20 88 18 95 08/16/20 04:00 95/54 L 08/16/20 03:58 85/55 L 08/16/20 03:57 37.0 C 86 18 97/54 L 93 08/16/20 03:27 95 H 95 08/16/20 02:06 87 18 96 08/16/20 01:04 37.2 C 90 14 111/69 94 08/16/20 00:15 89 18 97 08/16/20 00:10 89 18 98/61 L 97 08/16/20 00:00 91 H 16 95 PG Care Time/CCT Total # of Minutes Spent Total Time Spent: 32 Total Time Spent with Patient: Total time spent is greater than 50% in coordination of care (as documented) at patient's floor/unit and/or counseling p atient: Coding Level of Care Code 70795 Inpt Consult Level 3 Diagnoses Acute urinary retention R33.8 Hematuria R31.9 Multiple lesions of metastatic malignancy C79.9 Hydronephrosis N13.30 Hydronephrosis type: unspecified Acute renal failure N17.9 Acute renal failure type: unspecified Renal hemorrhage, left N28.89 (1) Hydronephrosis Hydronephrosis type: unspecified Qualified Code(s): N13.30 - Unspecified hydronephrosis (2) Acute renal failure Acute renal failure type: unspecified Qualified Code(s): N17.9 - Acute kidney failure, unspecified
[2020-08-16] MEDS ORDERED: VANCOMYCIN HCL 1,000 MG in SODIUM CHLORIDE 0.9% 250 ML IV ONE (12:00)
--- NOTE | 2020-08-16 15:07 | Communication Note ---
Date of Service: August 16, 2020 The patient was seen and examined this morning He has multiple myeloma status post autologous stem cell transplant with recent pneumonia due to COVID-19 virus which was treated in [facility] He was admitted with increasing weakness and tiredness from home under care of hospice He remains stable and did not have any significant pain and not distressed during my examination. He was told about current findings on CAT scan of the abdomen and there was discussed with his and palliative care His prognosis remains very poor Plan is to continue current management and if the condition does not get any better he will be put on comfort care only. Will have regular progress note from tomorrow 08/17/2020. Dr Lila Cisse
[2020-08-17] MEDS: SODIUM CHLORIDE 0.9% 1000ML 1,000 ML IV SCH ×4 (00:59→20:18)
--- NOTE | 2020-08-17 06:07 | Electrocardiogram Report ---
Test Reason : Blood Pressure : / mmHG Vent. Rate : 094 BPM Atrial Rate : 094 BPM P-R Int : 136 ms QRS Dur : 082 ms QT Int : 358 ms P-R-T Axes : 026 006 049 degrees QTc Int : 447 ms Normal sinus rhythm Normal ECG When compared with ECG of 03-JUL-2019 19:52, No significant change was found Confirmed by Etienne Martínez ([id number]) on 08/17/2020 6:07:22 AM Referred By: REFERRED SELF Confirmed By:Etienne Martínez
[2020-08-17 06:17] LABS: Hematocrit (blood only) 21.5 % (42-52); Hemoglobin 7.3 g/dL (14.0-18.0); Mean Corpuscular Hemoglobin 30.8 pg (25-34); Mean Corpuscular Volume 90.7 fL (80-100); RDW Coefficient of Variation 20.7 % (11.5-14.5); RDW Standard Deviation 68.3 fL (36.4-46.3); Red Blood Count 2.37 M/uL (4.7-6.1); White Blood Count 3.56 K/uL (4.8-10.8)
[2020-08-17 06:26] LABS: Mean Platelet Volume 8.7 fL (7.4-10.4); Platelet Count 42 K/uL (130-400)
[2020-08-17 06:52] LABS: Anisocytosis Present; Eosinophils # (auto) 0.01 K/uL (0-0.5); Eosinophils % (auto) 0.3 %; Immature Granulocytes # (auto) 0.01 K/uL (0.00-0.02); Immature Granulocytes % (auto) 0.3 %; Lymphocytes # (auto) 0.46 K/uL (1.2-3.4); Lymphocytes % (auto) 12.9 %; Monocytes # (auto) 0.18 K/uL (0.11-0.59); Monocytes % (auto) 5.1 %; Neutrophils % (auto) 81.4 %
[2020-08-17 07:07] LABS: Albumin Globulin Ratio 0.5 (0.9-2); Albumin Level 1.7 gm/dl (3.4-5.0); BUN Creatinine Ratio 28.1 (10-20); Bilirubin,Total 0.4 mg/dl (0.2-1); Creatinine Clr Calc Pharmacy 50.3 ml/min; Est GFR (African American) 54.5; Globulin 3.3 gm/dl (2.5-4.0); Magnesium 2.1 mg/dl (1.8-2.4); Phosphorus 4.1 mg/dl (2.5-4.9)
--- NOTE | 2020-08-17 08:53 | Pharmacy Report ---
Pharmacy Abx Dose Short Note - Date of Service August 17, 2020 - Assessment & Plan Assessment 50 year old M receiving vancomycin/levaquin for treatment of pneumonia Day # 3 of antimicrobial therapy. Plan Vancomycin * Random level this AM came back therapeutic at 16 mcg/ml (goal 15-20 mcg/ml for pneumonia) * Renal function improving more today from 2.96 to 1.65 mg/dL - CrCl ~50 (baseline appears closer to 0.9 mg/dlL) * Based upon current renal function estimated kinetics: t1/2~15 hrs, ke~0.045 hr-1 * Patient due for dose of vancomycin now - plan to start vancomycin 1 gm iv q 14 hrs. Plan to monitor closely and order level prior to the 1400 dose on 08/18 to ensure therapeutic * Anticipate renal function to continue to improve, therefore dose may need increased. Will follow levels and adjust accordingly Levaquin * Changed dosing today to 750 mg iv q 24 hrs - Crcl </=50 ml/min Pharmacy will continue to follow and will adjust dose/frequency as necessary. Thank you.
[2020-08-17] MEDS: CHECK SCOPOLAMINE PATCH PLACEMENT SCH ×3 (09:55→23:41)
[2020-08-17] MEDS: PANTOprazole 40 MG TAB PO SCH (09:56)
[2020-08-17] MEDS: CHLORHEXIDINE GLUCONATE 0.12% 480 ML MT SCH ×3 (09:56→20:18)
[2020-08-17] MEDS: GABAPENTIN 600 MG TAB PO SCH ×3 (09:56→20:17)
[2020-08-17] MEDS: ACYCLOVIR 400 MG TAB PO SCH ×2 (09:56→20:17)
[2020-08-17] MEDS: POLYETHYLENE (MIRALAX) 17 GM PACK PO SCH (09:56)
[2020-08-17] MEDS: TOCOPHERYL, DL-ALPHA 400 UNITS CAP PO SCH (09:56)
[2020-08-17] MEDS: VANCOMYCIN HCL 1,000 MG in SODIUM CHLORIDE 0.9% 250 ML IV SCH ×2 (10:58→23:41)
--- NOTE | 2020-08-17 11:07 | Nephrology Progress Note ---
Date of Service August 17, 2020 Assessment & Plan (1) Acute renal failure: Nonoliguric stage III acute renal failure with baseline creatinine 0.9 and presenting creatinine 4, downtrending this morning further to 1.7. Obstructive uropathy plus or minus ATN in setting of pneumonia, hypotension due not only to infection but to pain medication. Serum chemistries are for now acceptable; volume status challenging but would stop fluids only if respiratory status acutely worsening -daily bmp -For now will lower saline to 50 mL hourly given 02 needs -avoid nephrotoxins -- dose Vanco by level >> i.e. hold the dose until level post and verified that dose is appropriate (2) Renal hemorrhage, left: appreciate urology input; monitor hemoglobin; if this were another setting clinically, he might require tertiary center care if active RP bleed per uro logy; trend hgb per urology; else irrigate catheter; catheter should also relieve BL hydronephrosis Note that outpatient hemoglobin most recently in [facility] from mid to late July in the mid to low eights. Hemoglobin on a definite downward trend here though not a freefall from 9.1 on 08/15 1929 to 7.3 this am >per primary service; not an JAYLON candidate (3) Multiple lesions of metastatic malignancy: New findings of presumed metastatic disease/lymphoma in the bladder, bilateral adrenal glands, left pelvic sidewall -Primary service has discussed these with patient and his family; poor prognosis though will continue for now to treat any reversible pathologies without escalating care; will otherwise have low threshold for comfort care/palliative measures (4) Pneumonia: on vancomycin and levaquin >pls dose vanco by level (5) Acute respiratory failure: on 3-5L 02nc currently; use diuretics as indicated to maintain 02 sats Admission and Anticipated Discharge Date Admission Date: August 15, 2020 Subjective Systolics lower than prior, primarily in the 80s and 90s. reMains on 4 L of oxygen; feels improved; out of bed; processing news of new mets found on imaging Review of Systems Review of Systems: All systems reviewed & are unremarkable except as noted in Subjective Physical Exam Constitutional: well developed, + ill appearing and + cachectic; no acute distress up in chair on 02nc Eyes: EOM intact bilaterally ENMT: Ears: no external ear abnormality Nose: no external nose abnormality Mouth: + dry oral mucous membranes Neck: no nuchal rigidity Respiratory: normal respiratory effort Auscultation: lungs clear to auscultation bilaterally and + diminished lung sounds Cardiovascular: Rate/Rhythm: regular rate and regular rhythm Extremities: no edema Gastrointestinal (Abdomen): Inspection/Auscultation: normal bowel sounds Percussion/Palpation: abdomen soft; abdomen nontender Musculoskeletal: Extremities: + abnormal strength (generalized weakness) Skin: no rashes, warm and dry Neurologic: pulido, fluent speech Genitourinary: antony w/ ample repairer engine production urine Results & Data ([facility]) Vital Signs (Past 12 Hours) Vital Signs Temp Pulse Resp BP Pulse Ox 08/17/20 07:21 36.5 C 72 16 89/47 L 99 08/16/20 23:26 36.5 C 81 14 91/47 L 98 Laboratory Results 08/17/20 05:48 08/17/20 05:48 (1) Acute renal failure Acute renal failure type: unspecified Qualified Code(s): N17.9 - Acute kidney failure, unspecified (2) Acute respiratory failure Respiratory failure complication: hypoxia Qualified Code(s): J96.01 - Acute respiratory failure with hypoxia (3) Pneumonia Laterality: bilateral Lung location: unspecified part of lung Pneumonia type: due to unspecified organism Qualified Code(s): J18.9 - Pneumonia, unspecified organism
[2020-08-17 13:30] LABS: Hematocrit (blood only) 28.2 % (42-52); Hemoglobin 9.3 g/dL (14.0-18.0)
--- NOTE | 2020-08-17 13:42 | Palliative Care Consultation ---
Date of Consultation August 17, 2020 Assessment & Plan (1) Palliative care encounter: This unfortunate gentleman is a 50-year old male who presented to the [facility] with weakness and shortness of breath, along with a cough and hematuria. He has a significant PMH that includes multiple myeloma s/p stem cell transplant, and recent covid-19 pneumonia. He recently was admitted to [facility] and was found to have numerous metastatic abdominal lesions. He was evaluated by palliative care while in [place] as was sent home with hospice care. He ended up presenting to the hospital, revoking hospice privileges. The patient started to have hematuria and was becoming anemic with a drop in his hemoglobin. A CT scan revealed bleeding around the left renal pelvis ureter. Palliative care was consulted to discuss goals of care. I met with the patient in room 311. Patient was sitting on the side of his bed, with oxygen on, in no acute distress. I introduced myself and palliative care. He was very clear during our conversation that he wanted to focus on a comfort approach and did not want to pursue aggressive measures, including a blood transfusion, etc. We discussed his options and poor prognosis. He stated that he is not scared of but just wants to go home. He stated that " the lord will take me when he's ready to". He reiterated that he would want to return home with hospice services and not return to the hospital. I spoke with his , Jenna on the phone at [phone] at length. She was in full agreement for him to return home with hospice services. She stated that a POLST form has been completed indicating the following: DNR/DNI, comfort measures only, trial abx and no artificial nutrition/hydration. Should patient decline further, family would like to transition to comfort measures while he is here in the hospital. Discussed the current hospice agency with the patients and she indicated she would want to continue with [facility] for their hospice services. Discussed above with Radha in case management. Reference her note regarding care being able to start tomorrow, Thursday08/18/19. Hospitalist aware of plan and plans to discharge tomorrow. See case management note regarding transportation. medications will be added for prn relief if necessary. Palliative care will follow. (2) COVID-19 virus infection: (3) Multiple myeloma: (4) Multiple lesions of metastatic malignancy: (5) Anemia: History of Present Illness Reason for Consultation: Goals of care Requesting Physician: Dr. Cisse Attending Physician: Jesse Cisse MD History of Present Illness This unfortunate gentleman is a 50-year old male who presented to the [facility] with weakness and shortness of breath, along with a cough and hematuria. He has a significant PMH that includes multiple myeloma s/p stem cell transplant, and recent covid-19 pneumonia. He recently was admitted to [facility] and was found to have numerous metastatic abdominal lesions. He was evaluated by palliative care while in [place] as was sent home with hospice care. He ended up presenting to the hospital, revoking hospice privileges. The patient started to have hematuria and was becoming anemic with a drop in his hemoglobin. A CT scan revealed bleeding around the left renal pelvis ureter. Palliative care was consulted to discuss goals of care. Please see A/P for further details Thank you kindly for involving palliative care with this gentleman. Allergies Allergy/AdvReac Type Severity Reaction Status Date / Time Penicillins Allergy Severe Swelling Verified 08/15/20 22:11 of Lip/Tongue/Throat Home Medications Medication Instructions Recorded Confirmed Type acyclovir 800 mg PO BID 08/15/20 08/15/20 History aspirin [Aspirin Low Dose] 81 mg PO DAILY 08/15/20 08/15/20 History atropine 4 drp SUBLINGUAL Q4H PRN 08/15/20 08/15/20 History chlorhexidine gluconate 15 ml MUCOUS MEMBRANE TID 08/15/20 08/15/20 History gabapentin See Rx Instructions .ROUTE .COMPLEX 08/15/20 08/15/20 History lorazepam 1 mg PO TID PRN 08/15/20 08/15/20 History montelukast See Rx Instructions .ROUTE .COMPLEX 08/15/20 08/15/20 History morphine 30 mg PO Q12H 08/15/20 08/15/20 History morphine concentrate See Rx Instructions .ROUTE .COMPLEX 08/15/20 08/15/20 History omeprazole 20 mg PO DAILY 08/15/20 08/15/20 History ondansetron HCl 8 mg PO Q8H PRN 08/15/20 08/15/20 History oxycodone 20 mg PO Q4H PRN 08/15/20 08/15/20 History polyethylene glycol 3350 17 g PO DAILY 08/15/20 08/15/20 History scopolamine base 1 patch TOPICAL [id number] 08/15/20 08/15/20 History vitamin E (dl, acetate) 400 unit PO DAILY 08/15/20 08/15/20 History Patient History Medical History (Updated 08/17/20 @ 16:01 by KARLA Cherry) Abnormal finding on CT scan Anemia Hypercalcemia Low back pain Multiple myeloma Palliative care encounter Proteinuria Surgical History H/O stem cell transplant Family History Father Kidney disease Social History Smoking Status: Never smoker Tobacco Type: Cigarettes Second Hand Exposure: No; Do You Dip or Chew Tobacco: No; Tobacco Cessation Education Requested by Patient: No Hx Alcohol Use: No Hx Substance Use: No Preferred Language: Telugu Communication Ability: Effective Cooker Meal Required: No Beliefs That Will Affect Care: None Current Living Situation: Spouse Feels Safe at Home: Yes Safety Concerns: Feels Safe At This Time Assistive Devices: Oxygen - Continuous Review of Systems Review of Systems: [place] System Assessment Scale - Revised Pain: 1/3 Nausea: 0/3 Anxiety: 1/3 Depression: 2/3 Shortness of breath: 1/3 PPS: 30% Physical Exam Constitutional: + ill appearing, cooperative and comfortable Respiratory: normal respiratory effort, lungs clear to auscultation Auscultation: + diminished lung sounds Cardiovascular: Rate/Rhythm: regular rate and regular rhythm Heart Sounds: normal S1 and normal S2 Extremities: normal capillary refill; no edema Gastrointestinal (Abdomen): normal bowel sounds, soft, nontender, no hepatosplenomegaly Skin: no rashes, warm and dry Psychiatric: A+Ox3, euthymic affect Affect: + tearful affect Results & Data ([facility]) Vital Signs (Past 12 Hours) Vital Signs Temp Pulse Resp BP Pulse Ox 08/17/20 07:21 36.5 C 72 16 89/47 L 99 PG Care Time/CCT Total # of Minutes Spent Total Time Spent with Patient: Total time spent is greater than 50% in coordination of care (as documented) at patient's floor/unit and/or counseling patient: 70 Coding Level of Care Code 77223 Inpt Consult Level 3 Diagnoses Palliative care encounter Z51.5 COVID-19 virus infection U07.1 Multiple myeloma C90.00 Multiple lesions of metastatic malignancy C79.9 Anemia D64.9 Time Spent (min) 70 Time Spent Midlevel Total time spent 70 minutes with > 50% of that time assessing the patient, discussing goals of care and collaborating with IDT
[2020-08-17] MEDS: levoFLOXacin/D5W 750 MG/150 ML BAG IV SCH (13:51)
--- NOTE | 2020-08-17 15:28 | Hospitalist Progress Note ---
Date of Service August 17, 2020 Assessment & Plan (1) Multiple myeloma: (2) Acute respiratory failure: (3) COVID-19 virus infection: (4) Pneumonia: (5) Acute renal failure: (6) Multiple lesions of metastatic malignancy: (7) Hematuria: Admission and Anticipated Discharge Date Admission Date: August 15, 2020 Subjective 08/17/2020 The patient was seen and examined in medical floor He denies any complaints today except weakness Does not have any shortness of breath or chest pain, any abdominal pain nausea and or vomiting Denies any fever and/or chills Review of Systems Review of Systems: All systems reviewed and are unremarkable except as noted below Respiratory: + dyspnea (Moderate dyspnea at rest) Cardiovascular: no chest pain Gastrointestinal: no abdominal pain, no bloating, no nausea, no vomiting and no blood in stools Genitourinary: no hematuria Physical Exam Physical Exam: Sitting at the edge of the bed with some shortness of breath Constitutional: + acute distress (Due to shortness of breath), + ill appearing and + thin Eyes: PERRL, conjunctivae normal, anicteric sclerae ENMT: external ear and nose normal, oropharynx normal Neck: trachea midline, no thyromegaly Respiratory: + respiratory distress (Moderate shortness of breath at rest) Auscultation: + diminished lung sounds and + crackles (Bibasilar crackles) Cardiovascular: Rate/Rhythm: regular rate and regular rhythm Heart Sounds: no murmur Extremities: no edema Gastrointestinal (Abdomen): Inspection/Auscultation: abdomen normal to inspection, + abdomen distended and normal bowel sounds Percussion/Palpation: abdomen soft; abdomen nontender Musculoskeletal: No acute arthritis in any joint Neurologic: Alert, awake and oriented x3. Generally weak Lymphatic: no cervical or axillary lymphadenopathy Results & Data Results & Data ([facility]) Vital Signs (Past 12 Hours) Vital Signs Temp Pulse Resp BP Pulse Ox 08/17/20 07:21 36.5 C 72 16 89/47 L 99 Laboratory Results Short CBC 08/16/20 08/17/20 08/17/20 Range/Units 19:45 05:48 13:08 WBC 3.56 L (4.8-10.8) K/uL Hgb 8.1 L 7.3 L 9.3 L (14.0-18.0) g/dL Hct 21.5 L 28.2 L (42-52) % Plt Count 42 L (130-400) K/uL BMP 08/17/20 05:48 Sodium 140 Potassium 4.0 D Chloride 109 H Carbon Dioxide 21 BUN 46 H Creatinine 1.65 H D Glucose 107 H Calcium 8.0 L Liver Function 08/17/20 Range/Units 05:48 Total Bilirubin 0.4 D (0.2-1) mg/dl AST 36 (15-37) U/L ALT 11 L (12-78) U/L Alkaline Phosphatase 102 (45-117) U/L Albumin 1.7 L (3.4-5.0) gm/dl Medications Administered Current Inpatient Medications Acetaminophen (Acetaminophen 325 Mg Tab) 650 mg PO Q4H PRN PRN Reason: Pain or Fever Stop: 09/15/20 00:58 Acyclovir (Acyclovir 400 Mg Tab) 800 mg PO BID [facility] Stop: 09/15/20 08:59 Last Admin: 08/17/20 09:56 Dose: 800 mg Documented by: Atropine Sulfate (Atropine Sulfate 1% Op Soln 5 Ml Btl) 4 drops SL Q4H PRN PRN Reason: Secretions Stop: 09/15/20 01:11 Chlorhexidine Gluconate (Chlorhexidine Gluconate 0.12% 480 Ml) 15 ml MT TID [facility] Stop: 09/15/20 08:59 Last Admin: 08/17/20 13:57 Dose: 15 ml Documented by: Gabapentin (Gabapentin 600 Mg Tab) 900 mg PO BID [facility] Stop: 09/15/20 08:59 Last Admin: 08/17/20 09:56 Dose: 900 mg Documented by: Gabapentin (Gabapentin 600 Mg Tab) 600 mg PO DAILY@1400 [facility] Stop: 09/15/20 13:59 Last Admin: 08/17/20 13:57 Dose: 600 mg Documented by: Hydromorphone HCl (Hydromorphone Inj 0.5 Mg/0.5 Ml Syr) 0.5 mg IV Q3H PRN PRN Reason: Pain Stop: 08/30/20 00:58 Sodium Chloride (Nss 1000ml) 1,000 mls @ 125 mls/hr IV .Q8H [facility] Stop: 09/15/20 00:58 Last Admin: 08/17/20 12:36 Dose: 125 mls/hr Documented by: Levofloxacin/Dextrose (Levaquin/D5w) 750 mg in 150 mls @ 100 mls/hr IV DAILY@1100 [facility]; Protocol Stop: 08/23/20 10:59 Last Admin: 08/17/20 13:51 Dose: 100 mls/hr Documented by: Vancomycin HCl 1,000 mg/ (Sodium Chloride) 270 mls @ 200 mls/hr IV Q14H [facility] Stop: 08/24/20 09:59 Last Infusion: 08/17/20 13:50 Dose: Infused Documented by: Lorazepam (Lorazepam 1 Mg Tab) 1 mg PO TID PRN PRN Reason: Anxiety or Agitation Stop: 09/15/20 01:04 Miscellaneous (Remove Transderm-Scop Patch) 1 ea N/A Q72H [facility] Stop: 09/14/20 21:14 Last Admin: 08/16/20 03:49 Dose: Not Given Documented by: Miscellaneous (Check Scopolamine Patch Placement) 1 ea N/A QS [facility] Stop: 09/15/20 00:58 Last Admin: 08/17/20 09:55 Dose: 1 ea Documented by: Miscellaneous (Remove Transderm-Scop Patch) 1 ea N/A Q72H [facility] Stop: 09/17/20 20:58 Miscellaneous Information (Vancomycin Consult Active) 1 ea N/A UD PRN PRN Reason: Consult Stop: 09/14/20 20:27 Miscellaneous Information (Levofloxacin Consult Active) 1 ea N/A UD PRN PRN Reason: Consult Stop: 09/15/20 01:08 Nitroglycerin (Nitroglycerin Sl 0.4 Mg/Tab Tab) 0.4 mg SL UD PRN PRN Reason: Chest Pain Stop: 09/15/20 00:58 Pantoprazole Sodium (Pantoprazole 40 Mg Tab) 40 mg PO DAILY [facility] Stop: 09/15/20 08:59 Last Admin: 08/17/20 09:56 Dose: 40 mg Documented by: Polyethylene Glycol (Polyethylene (Miralax) 17 Gm Pack) 17 gm PO DAILY PRN PRN Reason: Constipation Stop: 09/15/20 00:58 Last Admin: 08/16/20 16:31 Dose: 17 gm Documented by: Polyethylene Glycol (Polyethylene (Miralax) 17 Gm Pack) 17 gm PO DAILY [facility] Stop: 09/15/20 08:59 Last Admin: 08/17/20 09:56 Dose: 17 gm Documented by: Scopolamine (Scopolamine 1.5 Mg Tdsy) 1.5 mg TD Q3D@2100 [facility] Stop: 09/17/20 20:59 Vitamin E (Tocopheryl, Dl-Alpha 400 Units Cap) 400 units PO DAILY [facility] Stop: 09/15/20 08:59 Last Admin: 08/17/20 09:56 Dose: 400 units Documented by: (1) Acute respiratory failure Respiratory failure complication: hypoxia Qualified Code(s): J96.01 - Acute respiratory failure with hypoxia (2) Acute renal failure Acute renal failure type: unspecified Qualified Code(s): N17.9 - Acute kidney failure, unspecified (3) Pneumonia Laterality: bilateral Lung location: unspecified part of lung Pneumonia type: due to unspecified organism Qualified Code(s): J18.9 - Pneumonia, unspecified organism
[2020-08-18 06:58] LABS: Hematocrit (blood only) 20.7 % (42-52); Hemoglobin 6.8 g/dL (14.0-18.0); Mean Corpuscular Hemoglobin 30.2 pg (25-34); Mean Corpuscular Hgb Conc 32.9 g/dL (32-36); Mean Platelet Volume 9.4 fL (7.4-10.4); Platelet Count 33 K/uL (130-400); RDW Coefficient of Variation 20.9 % (11.5-14.5); Red Blood Count 2.25 M/uL (4.7-6.1); White Blood Count 2.79 K/uL (4.8-10.8)
[2020-08-18 07:05] LABS: Anisocytosis Present; Eosinophils # (auto) 0.02 K/uL (0-0.5); Eosinophils % (auto) 0.7 %; Immature Granulocytes # (auto) 0.02 K/uL (0.00-0.02); Immature Granulocytes % (auto) 0.7 %; Lymphocytes # (auto) 0.16 K/uL (1.2-3.4); Lymphocytes % (auto) 5.7 %; Monocytes # (auto) 0.37 K/uL (0.11-0.59); Monocytes % (auto) 13.3 %; Neutrophils # (auto) 2.22 K/uL (1.4-6.5); Neutrophils % (auto) 79.6 %
[2020-08-18 07:17] LABS: BUN Creatinine Ratio 23.1 (10-20); Calcium 7.8 mg/dl (8.5-10.1); Creatinine Clr Calc Pharmacy 70.3 ml/min; Est GFR (African American) 81.7; Est GFR (Non-African American) 70.5; Potassium 3.6 mmol/L (3.5-5.1)
[2020-08-18] MEDS: CHECK SCOPOLAMINE PATCH PLACEMENT SCH (07:37)
[2020-08-18] MEDS: POLYETHYLENE (MIRALAX) 17 GM PACK PO SCH (07:38)
[2020-08-18] MEDS: GABAPENTIN 600 MG TAB PO SCH (07:39)
[2020-08-18] MEDS: CHLORHEXIDINE GLUCONATE 0.12% 480 ML MT SCH (07:40)
[2020-08-18] MEDS: PANTOprazole 40 MG TAB PO SCH (07:41)
[2020-08-18] MEDS: TOCOPHERYL, DL-ALPHA 400 UNITS CAP PO SCH (07:41)
[2020-08-18] MEDS: ACYCLOVIR 400 MG TAB PO SCH (07:42)
--- NOTE | 2020-08-18 10:24 | Nephrology Progress Note ---
Date of Service August 18, 2020 Assessment & Plan (1) Acute renal failure: Nonoliguric stage III acute renal failure with baseline creatinine 0.9 and presenting creatinine 4, downtrending this morning further to 1.1 which is close to his baseline. Obstructive uropathy plus or minus ATN in setting of pneumonia, hypotension due not only to infection but to pain medication. Serum chemistries are for now acceptable; volume status challenging but would stop fluids only if respiratory status acutely worsening -daily bmp -Stop IV fluids -avoid nephrotoxins -- dose Vanco by level (2) Renal hemorrhage, left: appreciate urology input; monitor hemoglobin; if this were another setting clinically, he might require tertiary center care if active RP bleed per urology; trend hgb per urology; else irrigate catheter; catheter should also relieve BL hydronephrosis Hemoglobin down to 6.8. 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 No shortness of breath. He has a Grover catheter which is draining well. Creatinine down to 1.1. Hemoglobin was down to 6.8 Review of Systems Review of Systems: All systems reviewed & are unremarkable except as noted in HPI & below Physical Exam Physical Exam: General exam: Appears comfortable, no acute distress HEENT: Pupils are equal and reactive to light Neck: No JVD, neck is supple trachea is midline Respiratory system: Clear breath sounds bilaterally. Gastrointestinal: Abdomen is soft, non distended, non tender, bowel sounds are present CVS: Regular rate and rhythm. No murmurs, rubs or gallops Musculoskeletal: No joint or muscle tenderness Extremities: Non tender, no edema, peripheral pulses are present Neuro: Oriented, no tremors, no focal neurological deficits Skin: No rashes Results & Data ([facility]) Vital Signs (Past 12 Hours) Vital Signs Temp Pulse Pulse Resp BP Pulse Ox 08/18/20 06:28 80 94/47 L 99 08/18/20 06:05 36.8 C 73 15 96/36 L 98 08/18/20 01:08 99 08/17/20 23:45 85 91/44 L 08/17/20 22:57 36.9 C 83 16 93 Laboratory Results 08/18/20 05:55 08/18/20 05:55 WBC 2.79 L RBC 2.25 L MCV 92.0 MCH 30.2 MCHC 32.9 RDW Std Deviation 70.0 H RDW Coeff of Silvestre 20.9 H Plt Count 33 L MPV 9.4 (1) Acute renal failure Acute renal failure type: unspecified Qualified Code(s): N17.9 - Acute kidney failure, unspecified (2) Pneumonia Laterality: bilateral Lung location: unspecified part of lung Pneumonia type: due to unspecified organism Qualified Code(s): J18.9 - Pneumonia, unspecified organism
[2020-08-18] MEDS: levoFLOXacin/D5W 750 MG/150 ML BAG IV SCH (11:14)
--- NOTE | 2020-08-18 11:45 | Hospitalist Progress Note ---
Date of Service August 18, 2020 Assessment & Plan (1) Multiple myeloma: History of multiple myeloma and is status post stem cell transplant Multiple myeloma has not been in remission and no further treatment warranted as per the oncologist Recent CAT scan of the abdomen and pelvis did show significant disease Was under care of hospice at home He remains free from any pain and/or acute distress He did not want any further aggressive treatment including blood transfusion He was evaluated by palliative care and advised that he could go home with hospice today there is 08/18/2020 (2) Acute respiratory failure: Recent history of COVID-19 pneumonia at [facility] Received treatment with remdesivir and dexamethasone Was brought in from home with more shortness of breath with possible pneumonia Has been getting intravenous Vanco and levofloxacinWill give oral doxycycline Will give oral doxycycline on discharge (3) COVID-19 virus infection: (4) Pneumonia: As above (5) Acute renal failure: Admitted with acute renal failure in part due to obstructive disease Was seen by train operator and urologist No further management warranted (6) Multiple lesions of metastatic malignancy: As above Secondary to multiple myeloma and/or lymphoma (7) Hematuria: Stopped Will be discharged home this afternoon with home hospice Discussed with the about the plan Admission and Anticipated Discharge Date Admission Date: August 15, 2020 Subjective 08/17/2020 The patient was seen and examined in medical floor He denies any complaints today except weakness Does not have any shortness of breath or chest pain, any abdominal pain nausea and or vomiting Denies any fever and/or chills 08/18/2020 The patient was seen and examined in medical floor, Covid unit He remains stable without any significant symptoms Has been eating and drinking reasonably and denies any significant pain or distress at rest Review of Systems Review of Systems: All systems reviewed and are unremarkable except as noted below Gastrointestinal: no abdominal pain, no bloating, no nausea and no vomiting Musculoskeletal: no joint pain Neurologic: + generalized weakness Physical Exam Physical Exam: Sitting at the edge of the bed with some shortness of breath Constitutional: + acute distress (Due to shortness of breath), + ill appearing and + thin Eyes: PERRL, conjunctivae normal, anicteric sclerae ENMT: external ear and nose normal, oropharynx normal Neck: trachea midline, no thyromegaly Respiratory: + respiratory distress (Moderate shortness of breath at rest) Auscultation: + diminished lung sounds and + crackles (Bibasilar crackles) Cardiovascular: Rate/Rhythm: regular rate and regular rhythm Heart Sounds: no murmur Extremities: no edema Gastrointestinal (Abdomen): Inspection/Auscultation: abdomen normal to inspection, + abdomen distended and normal bowel sounds Percussion/Palpation: abdomen soft; abdomen nontender Musculoskeletal: No acute arthritis in any joint Neurologic: Alert, awake and oriented x3. Generally weak but no focal neuro deficit Lymphatic: no cervical or axillary lymphadenopathy Results & Data Results & Data ([facility]) Vital Signs (Past 12 Hours) Vital Signs Temp Pulse Pulse Resp BP Pulse Ox 08/18/20 06:28 80 94/47 L 99 08/18/20 06:05 36.8 C 73 15 96/36 L 98 08/18/20 01:08 99 08/17/20 23:45 85 91/44 L Laboratory Results Short CBC 08/17/20 08/18/20 Range/Units 13:08 05:55 WBC 2.79 L (4.8-10.8) K/uL Hgb 9.3 L 6.8 L* (14.0-18.0) g/dL Hct 28.2 L 20.7 L* (42-52) % Plt Count 33 L (130-400) K/uL BMP 08/18/20 05:55 Sodium 141 Potassium 3.6 Chloride 112 H Carbon Dioxide 21 BUN 27 H Creatinine 1.18 D Glucose 79 Calcium 7.8 L Medications Administered Current Inpatient Medications Acetaminophen (Acetaminophen 325 Mg Tab) 650 mg PO Q4H PRN PRN Reason: Pain or Fever Stop: 09/15/20 00:58 Acyclovir (Acyclovir 400 Mg Tab) 800 mg PO BID [facility] Stop: 09/15/20 08:59 Last Admin: 08/18/20 07:42 Dose: 800 mg Documented by: Atropine Sulfate (Atropine Sulfate 1% Op Soln 5 Ml Btl) 4 drops SL Q4H PRN PRN Reason: Secretions Stop: 09/15/20 01:11 Chlorhexidine Gluconate (Chlorhexidine Gluconate 0.12% 480 Ml) 15 ml MT TID [facility] Stop: 09/15/20 08:59 Last Admin: 08/18/20 07:40 Dose: 15 ml Documented by: Gabapentin (Gabapentin 600 Mg Tab) 900 mg PO BID [facility] Stop: 09/15/20 08:59 Last Admin: 08/18/20 07:39 Dose: 900 mg Documented by: Gabapentin (Gabapentin 600 Mg Tab) 600 mg PO DAILY@1400 [facility] Stop: 09/15/20 13:59 Last Admin: 08/17/20 13:57 Dose: 600 mg Documented by: Hydromorphone HCl (Hydromorphone Inj 0.5 Mg/0.5 Ml Syr) 0.5 mg IV Q3H PRN PRN Reason: Pain Stop: 08/30/20 00:58 Levofloxacin/Dextrose (Levaquin/D5w) 750 mg in 150 mls @ 100 mls/hr IV DAILY@1100 [facility]; Protocol Stop: 08/23/20 10:59 Last Admin: 08/18/20 11:14 Dose: 100 mls/hr Documented by: Vancomycin HCl 1,000 mg/ (Sodium Chloride) 270 mls @ 200 mls/hr IV Q14H [facility] Stop: 08/24/20 09:59 Last Infusion: 08/18/20 01:08 Dose: Infused Documented by: Lorazepam (Lorazepam 1 Mg Tab) 1 mg PO TID PRN PRN Reason: Anxiety or Agitation Stop: 09/15/20 01:04 Miscellaneous (Remove Transderm-Scop Patch) 1 ea N/A Q72H [facility] Stop: 09/14/20 21:14 Last Admin: 08/16/20 03:49 Dose: Not Given Documented by: Miscellaneous (Check Scopolamine Patch Placement) 1 ea N/A QS [facility] Stop: 09/15/20 00:58 Last Admin: 08/18/20 07:37 Dose: 1 ea Documented by: Miscellaneous (Remove Transderm-Scop Patch) 1 ea N/A Q72H [facility] Stop: 09/17/20 20:58 Miscellaneous Information (Vancomycin Consult Active) 1 ea N/A UD PRN PRN Reason: Consult Stop: 09/14/20 20:27 Miscellaneous Information (Levofloxacin Consult Active) 1 ea N/A UD PRN PRN Reason: Consult Stop: 09/15/20 01:08 Nitroglycerin (Nitroglycerin Sl 0.4 Mg/Tab Tab) 0.4 mg SL UD PRN PRN Reason: Chest Pain Stop: 09/15/20 00:58 Pantoprazole Sodium (Pantoprazole 40 Mg Tab) 40 mg PO DAILY [facility] Stop: 09/15/20 08:59 Last Admin: 08/18/20 07:41 Dose: 40 mg Documented by: Polyethylene Glycol (Polyethylene (Miralax) 17 Gm Pack) 17 gm PO DAILY PRN PRN Reason: Constipation Stop: 09/15/20 00:58 Last Admin: 08/16/20 16:31 Dose: 17 gm Documented by: Polyethylene Glycol (Polyethylene (Miralax) 17 Gm Pack) 17 gm PO DAILY [facility] Stop: 09/15/20 08:59 Last Admin: 08/18/20 07:38 Dose: 17 gm Documented by: Scopolamine (Scopolamine 1.5 Mg Tdsy) 1.5 mg TD Q3D@2100 [facility] Stop: 09/17/20 20:59 Vitamin E (Tocopheryl, Dl-Alpha 400 Units Cap) 400 units PO DAILY [facility] Stop: 09/15/20 08:59 Last Admin: 08/18/20 07:41 Dose: 400 units Documented by: (1) Acute respiratory failure Respiratory failure complication: hypoxia Qualified Code(s): J96.01 - Acute respiratory failure with hypoxia (2) Pneumonia Laterality: bilateral Lung location: unspecified part of lung Pneumonia ty pe: due to unspecified organism Qualified Code(s): J18.9 - Pneumonia, unspecified organism (3) Acute renal failure Acute renal failure type: unspecified Qualified Code(s): N17.9 - Acute kidney failure, unspecified
[2020-08-18] MEDS ORDERED: DOXYCYCLINE HYCLATE 100 MG CAP PO SCH (12:00)
[2020-08-18] MEDS ORDERED: VANCOMYCIN TROUGH ONE (13:30)
[2020-08-18] MEDS ORDERED: SCOPOLAMINE 1.5 MG TDSY TD SCH (21:00)
--- NOTE | 2020-08-19 07:38 | Discharge Summary ---
Date of Service August 19, 2020 Admission HPI Per Admitting Provider DICTATED BY: Gasper Issa MD DATE OF ADMISSION: 08/15/2020 CHIEF COMPLAINT: Weakness and cough. HISTORY OF PRESENT ILLNESS: This is a 50-year-old male with past medical history significant for multiple myeloma, not achieved remission, history of autologous stem cell transplantation, currently on palliative care, history of hypercalcemia of malignancy, compression fracture of T11, trigeminal neuralgia, cancer related pain, history of encephalopathy. The patient recently was diagnosed with COVID-19 pneumonia and was admitted in the [facility] and was treated with remdesivir and Decadron and he wanted to continue with chemotherapy and there was plan to discuss about it 3 weeks after recovering from COVID-19 infection that was supposed to be on 08/14/2020. The patient at that time in [place] he was treated with Levaquin and vancomycin. He was found to be platelets decreased to 66,000. His pain medication MS Contin at this time given his hypotension was decreased from 60 mg to 30 mg twice daily and palliative care was following. At that time he did not want hospice care, . As per Epic called today , the patient having weakness and cough and as per the [facility], she reported that his weakness is much worse than last Thursday, unable to get out of bed at this time. Incontinent bladder, no bowel movements since last Thursday. reported confusion and not responding at times. As per the home health nurse visit, there is a POLST completed today with DNR wishes, but was brought to the hospital for any treatable cause. In the hospital, he was found to have hemoglobin of 9, urinary retention with Grover catheter draining some blood in the urine and creatinine was 4. His baseline creatine was 0.8 recently and lactate was initial 3.2, repeat was 2.7. Procalcitonin 2, NARAYAN-CoV-2 was still positive. Chest x-ray, multifocal pneumonia. Currently, the patient is alert and oriented to name and place. He says he has some cough, states some abdominal pain, not able to urinate, constipated and not eating and drinking much. Denies any chest pain. Denies any fever, denies any headache, no blurred vision, no earache, no runny nose, no sore throat. States he has some abdominal discomfort. He says he is not ambulating. His hemodynamics are okay in the ER. Admission Exam Per Admitting Provider GENERAL: The patient is thin and frail, not in acute distress. VITAL SIGNS: Temperature 37.4, pulse 98, respiratory rate 18, blood pressure 109/63, oxygen 94% on 3 liters. HEENT: Pupils equal, round, and reactive to light. Oral mucosa dry. NECK: No JVD, no neck masses. CARDIOVASCULAR: S1, S2 heard, regular rate and rhythm, no murmur, no gallop. RESPIRATORY SYSTEM: Normal AP diameter. No accessory muscle use. No wheezing, no crackles. ABDOMEN: Soft, bowel sounds present, nontender. No distention. CENTRAL NERVOUS SYSTEM: Cranial nerves II-XII grossly intact, nonfocal. EXTREMITIES: Bilateral lower extremity pedal edema present, no erythema seen Principal Diagnosis Multiple myeloma, metastatic disease, COVID-19 pneumonia, acute renal failure Discharge Exam Constitutional + acute distress (Due to shortness of breath), + ill appearing and + thin Eyes PERRL, conjunctivae normal, anicteric sclerae ENMT external ear and nose normal, oropharynx normal Neck trachea midline, no thyromegaly Respiratory + respiratory distress (Moderate shortness of breath at rest) Auscultation: + diminished lung sounds and + crackles (Bibasilar crackles) Cardiovascular Rate/Rhythm: regular rate and regular rhythm Heart Sounds: no murmur Extremities: no edema Gastrointestinal (Abdomen) Inspection/Auscultation: abdomen normal to inspection, + abdomen distended and normal bowel sounds Percussion/Palpation: abdomen soft; abdomen nontender Lymphatic no cervical or axillary lymphadenopathy Discharge Data Allergies Allergy/AdvReac Type Severity Reaction Status Date / Time Penicillins Allergy Severe Swelling Verified 08/15/20 22:11 of Lip/Tongue/Throat Consultations 08/15/20 20:39 ED Decision to Admit Stat 08/16/20 00:59 Consult Case Management - Discharge Planning Routine Consult Nephrology Routine 08/16/20 08:00 Consult Urology Routine 08/17/20 10:38 Consult Palliative Care Routine Ordered Studies 08/15/20 22:52 CT abd pelvis wo con Urgent Hospital Course (1) Multiple myeloma: History of multiple myeloma and is status post stem cell transplant Multiple myeloma has not been in remission and no further treatment warranted as per the oncologist Recent CAT scan of the abdomen and pelvis did show significant disease Was under care of hospice at home He remains free from any pain and/or acute distress He did not want any further aggressive treatment including blood transfusion He was evaluated by palliative care and advised that he could go home with hospice today there is 08/18/2020 (2) Acute respiratory failure: Recent history of COVID-19 pneumonia at [facility] Received treatment with remdesivir and dexamethasone Was brought in from home with more shortness of breath with possible pneumonia Has been getting intravenous Vanco and levofloxacinWill give oral doxycycline Will give oral doxycycline on discharge (3) COVID-19 virus infection: (4) Pneumonia: As above (5) Acute renal failure: Admitted with acute renal failure in part due to obstructive disease 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 by 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 machine operator and urologist No further management warranted (6) Multiple lesions of metastatic malignancy: As above Secondary to multiple myeloma and/or lymphoma (7) Hematuria: Stopped Will be discharged home this afternoon with home hospice Discussed with the about the plan Total Time Total Time Spent Total Time Spent (In Minutes): 35 minutes Total Time Includes: Examination of the Patient, Discharge Planning, Medication Reconciliation and Communication With Other Providers Discharge Plan Discharge Items Patient Disposition: Hospice - Home Reason For Visit: WEAKNESS Discharge Diagnosis: Multiple myeloma, metastatic disease, COVID-19 pneumonia, acute renal failure Condition on Discharge: Fair Activity: Resume your previous activity Activity Comment: Requires assistance with ADL S Non-emergency contact: Primary Care Provider Call non-emergency contact if: you have any medication questions and your symptoms worsen Follow-up/Referrals: Ada Cedillo CRNP [Primary Care Provider] - (Appointment with the primary care physician will be as per hospice care) Diet: Regular Addtl Attending Provider Instructions: Please take precaution to avoid any falls Keep the Grover in Pending Studies at Discharge: No Stand-Alone Forms: My [facility] Medications and DC Order Prescriptions: New doxycycline hyclate 100 mg Capsule 100 mg PO BID 7 Days Qty: 14 RF: 0 Continued gabapentin 600 mg tablet See Rx Instructions .ROUTE .COMPLEX RF: 0 morphine 30 mg tablet extended release 30 mg PO Q12H RF: 0 acyclovir 800 mg tablet 800 mg PO BID RF: 0 oxycodone 20 mg tablet 20 mg PO Q4H PRN (Reason: Breakthrough Pain) RF: 0 morphine concentrate 100 mg/5 mL (20 mg/mL) solution See Rx Instructions .ROUTE .COMPLEX RF: 0 ondansetron HCl 8 mg tablet 8 mg PO Q8H PRN (Reason: Nausea) RF: 0 lorazepam 1 mg tablet 1 mg PO TID PRN (Reason: Anxiety or Agitation) RF: 0 scopolamine base 1 mg over 3 days patch 3 day 1 patch topical [id number] RF: 0 atropine 1 % drops 4 drp sublingual Q4H PRN (Reason: Secretions) RF: 0 omeprazole 20 mg Capsule,Delayed Release(Dr/Ec) 20 mg PO DAILY RF: 0 montelukast 10 mg tablet See Rx Instructions .ROUTE .COMPLEX RF: 0 polyethylene glycol 3350 17 gram/dose Powder 17 g PO DAILY RF: 0 chlorhexidine gluconate 0.12 % mouthwash 15 ml mucous membrane TID RF: 0 vitamin E (dl, acetate) 400 unit capsule 400 unit PO DAILY RF: 0 Discontinued aspirin [Aspirin Low Dose] 81 mg Tablet,Delayed Release (Dr/Ec) 81 mg PO DAILY RF: 0 Discharge Orders: Discharge Order (Routine); Ordered 08/18/20 Ordered By: Jesse Daugherty/Other Patient Handouts: COVID-19 Home Care, Caring for Someone Who Has COVID-19, Disinfecting Your Home of COVID-19 Admission Data Admit Date/Time: 08/15/20 22:50 Attending Provider: Jesse Cisse Admit Provider: Gasper Issa Primary Care Provider: Ada Cedillo Other Providers: Gasper Issa ; Leigh Seth ; Pj Russo ; Tip Muñoz Christophe T. ; Jana Strange Lauren B. ; Micah Bradley ; Nuris Burks ; Sharda Cueto ; Gayathri Bee ; Rohit Jaeger ; Linda Doty ; Lois Zamudio ; Julissa Gordon Other Interventions: Discharge Summary Assessment (RN) Last Done: 08/18/20 11:58
== END 2020-08-18 14:19 | disposition hospice, home (50) | DRG 177 ==
LOC: ED 18:41 → 3E 08-16 00:09